=== PATIENT | male | born 1960 | race Caucasian/White ===

== ENCOUNTER 2016-10-27 20:44 | Emergency (ER) | payer OTHER, MEDICARE ==
[~2016-10-27] VITALS: Ht 172.7 cm; Wt 85.0 kg
[~2016-10-27 20:44] MED LIST: ALPR.5 PO; CLON.5 PO; GEOD80CA PO; LITH300T3 PO
[2016-10-27 20:48] VITALS: BP 157/95; PULSE 100; RESP 20; TEMP 98.7; O2SAT 95
[2016-10-27] MEDS ORDERED: SODIUM CHLORIDE 0.9% FLUSH 5 ML FLUSH IVF PRN (21:00)
[2016-10-27] MEDS ORDERED: methylPREDNISolone SOD SUCC 125 MG/2 ML VIAL IVP ONE (21:00)
--- NOTE | 2016-10-27 21:00 | PD ---
HPI Chief Complaint: Respiratory Symptoms Time Seen by Provider: 20:55 Travel History International Travel<30 days: No Contact w/Intl Traveler<30days: No History of Present Illness HPI Patient is a 56-year-old male who presents emergency via EMS for evaluation of shortness of breath. Patient states shortness breath occurs mostly at night, he states it has gotten worse recently. He states that his lungs feel like they 're closing in and he is gasping for air. Patient denies any chest pain, shortness of breath currently, nausea, vomiting, headaches, fever, chills or recent illnesses. He has a history of bipolar disorder, schizophrenia, [place], anxiety, asthma. PFSH Past Medical History Asthma: Yes Bipolar Disorder: Yes Anxiety: Yes Myocardial Infarction: Yes Schizophrenia: Yes Social History Alcohol Use: No Tobacco Use: No Substance Use: No Allergies-Medications (Allergen,Severity, Reaction): Coded Allergies: No Known Allergies (Unverified , 09/30/16) Reported Meds & Prescriptions Reported Meds & Active Scripts Active Ventolin Hfa 18 GM Inh (Albuterol Sulfate) 90 Mcg/Act Aer 2 Puff INH Q4-6H PRN Reported Geodon (Ziprasidone) 80 Mg Cap 80 Mg PO BID [place] Carbonate 300 Mg Tab 1,200 Mg PO HS Klonopin (Clonazepam) 0.5 Mg Tab 0.5 Mg PO DAILY Xanax (Alprazolam) 0.5 Mg Tab 0.5 Mg PO BID PRN Review of Systems Except as stated in HPI: all other systems reviewed are Neg Respiratory: Positive: Shortness of Breath Physical Exam Narrative GENERAL: Well-developed, well-nourished, alert male. Resting comfortably in no acute distress. SKIN: Warm and dry. HEAD: Atraumatic. Normocephalic. EYES: Pupils equal and round. No scleral icterus. No injection or drainage. ENT: No nasal bleeding or discharge. Mucous membranes pink and moist. NECK: Trachea midline. No JVD. CARDIOVASCULAR: Regular rate and rhythm. No murmur appreciated. RESPIRATORY: No accessory muscle use. Clear to auscultation. Breath sounds equal bilaterally. No nasal flaring, no retractions noted. GASTROINTESTINAL: Abdomen soft, non-tender, nondistended. Hepatic and splenic margins not palpable. MUSCULOSKELETAL: No obvious deformities. No clubbing. No cyanosis. No edema. NEUROLOGICAL: Awake and alert. No obvious cranial nerve deficits. Motor grossly within normal limits. Normal speech. PSYCHIATRIC: Anxious mood and affect; insight and judgment normal. Data Data Last Documented VS Orders Complete Blood Count With Diff (10/27/16 20:53) Comprehensive Metabolic Panel (10/27/16 20:53) B-Type Natriuretic Peptide (10/27/16 20:53) Ckmb (Isoenzyme) Profile (10/27/16 20:53) Troponin I (10/27/16 20:53) Iv Access Insert/Monitor (10/27/16 20:53) Electrocardiogram (10/27/16 20:53) Ecg Monitoring (10/27/16 20:53) Oximetry (10/27/16 20:53) Oxygen Administration (10/27/16 20:53) Chest, Pa & Lat (10/27/16 20:53) Sodium Chloride 0.9% Flush (Ns Flush) (10/27/16 21:00) Methylprednisolone So Succ Inj (Solumedr (10/27/16 21:00) Albuterol-Ipratropium Neb (Duoneb Neb) (10/27/16 21:00) Sodium Chlor 0.9% 1000 Ml Inj (Ns 1000 M (10/27/16 22:15) Potassium Chloride (Kcl) (10/27/16 22:15) Labs MDM Medical Decision Making Medical Screen Exam Complete: Yes Emergency Medical Condition: Yes Interpretation(s) Laboratory Tests Test 10/27/16 21:15 White Blood Count 15.3 TH/MM3 Red Blood Count 5.01 MIL/MM3 Hemoglobin 14.6 GM/DL Hematocrit 42.5 % Mean Corpuscular Volume 84.9 FL Mean Corpuscular Hemoglobin 29.1 PG Mean Corpuscular Hemoglobin 34.3 % Concent Red Cell Distribution Width 12.6 % Platelet Count 405 TH/MM3 Mean Platelet Volume 7.8 FL Neutrophils (%) (Auto) 75.7 % Lymphocytes (%) (Auto) 16.2 % Monocytes (%) (Auto) 5.4 % Eosinophils (%) (Auto) 2.3 % Basophils (%) (Auto) 0.4 % Neutrophils # (Auto) 11.6 TH/MM3 Lymphocytes # (Auto) 2.5 TH/MM3 Monocytes # (Auto) 0.8 TH/MM3 Eosinophils # (Auto) 0.3 TH/MM3 Basophils # (Auto) 0.1 TH/MM3 CBC Comment DIFF FINAL Differential Comment Vital Signs Date Time Temp Pulse Resp B/P Pulse Ox O2 Delivery O2 Flow Rate FiO2 10/27/16 20:59 94 Room Air 10/27/16 20:59 100 20 94 Room Air 10/27/16 20:48 98.7 100 20 157/95 95 Last Impressions Chest X-Ray 10/27/162052 Signed Impressions: Service Date/Time: Thursday, October 27, 2016 21:15 - CONCLUSION: No acute disease. Milton Wolff Jr., MD Differential Diagnosis Asthma exacerbation versus congestive heart failure versus COPD versus sleep apnea versus other Narrative Course Patient is a 56-year-old male who presented to emergency department for evaluation of shortness of breath. This feeling has been ongoing for approximately 2 months and occurs mostly when patient is lying in bed at night. Patient states he has not smoked since he was in his 20s. He has been out of his albuterol inhaler for approximately 6 weeks. Patient placed on telemetry monitoring, continuous pulse oximetry. IV access initiated, labs and imaging ordered and pending. CBC with a white count of 15.3, patient has no sign of infection, his chest x- ray is normal. Likely stress related. Patient appears anxious, continuously adding new symptoms to his complaint. Chemistry is otherwise unremarkable, potassium was slightly hemolyzed with a value of 3.7. Troponin was 0.02, BNP 39. Normal saline bolus as well as potassium supplementation ordered. Patient be discharged home with albuterol inhaler as he has been out of his inhaler for the last 6 weeks. He was encouraged to follow up with his primary doctor, for possible outpatient sleep study. He was encouraged to return to emergency department for any new or worsening symptoms. He was reassured at this time that there was no sign of pulmonary infection or acute process. Diagnosis Primary Impression: Shortness of breath Referrals: Primary Care Physician 3 days Patient Instructions: Dyspnea (ED), General Instructions Additional Instructions: Follow-up with your primary doctor Continue home medications as previously prescribed Use albuterol inhaler as needed and as directed Return to emergency department for any new or worsening symptoms Med/Other Pt SpecificInfo: Prescription(s) given Scripts Albuterol 18 GM Inh (Ventolin Hfa 18 GM Inh)90 Mcg/Act Aer2 Puff INH Q4-6H PRN ( SHORTNESS OF BREATH) #1 INHALER Ref 0 Prov:Yocasta Huff 10/27/16 Disposition: 01 DISCHARGE HOME Condition: Stable Yocasta Huff Oct 27, 2016 21:00 Mean Corpuscular Hemoglobin 34.3 % Concent Red Cell Distribution Width 12.6 % Platelet Count 405 TH/MM3 Mean Platelet Volume 7.8 FL Neutrophils (%) (Auto) 75.7 % Lymphocytes (%) (Auto) 16.2 % Monocytes (%) (Auto) 5.4 % Eosinophils (%) (Auto) 2.3 % Basophils (%) (Auto) 0.4 % Neutrophils # (Auto) 11.6 TH/MM3 Lymphocytes # (Auto) 2.5 TH/MM3 Monocytes # (Auto) 0.8 TH/MM3 Eosinophils # (Auto) 0.3 TH/MM3 Basophils # (Auto) 0.1 TH/MM3 CBC Comment DIFF FINAL Differential Comment Vital Signs Date Time Temp Pulse Resp B/P Pulse Ox O2 Delivery O2 Flow Rate FiO2 10/27/16 20:59 94 Room Air 10/27/16 20:59 100 20 94 Room Air 10/27/16 20:48 98.7 100 20 157/95 95 Last Impressions Chest X-Ray 10/27/162052 Signed Impressions: Service Date/Time: Thursday, October 27, 2016 21:15 - CONCLUSION: No acute disease. Milton Wolff Jr., MD Differential Diagnosis Asthma exacerbation versus congestive heart failure versus COPD versus sleep apnea versus other Narrative Course Patient is a 56-year-old male who presented to emergency department for evaluation of shortness of breath. This feeling has been ongoing for approximately 2 months and occurs mostly when patient is lying in bed at night. Patient states he has not smoked since he was in his 20s. He has been out of his albuterol inhaler for approximately 6 weeks. Patient placed on telemetry monitoring, continuous pulse oximetry. IV access initiated, labs and imaging ordered and pending. CBC with a white count of 15.3, patient has no sign of infection, his chest x- ray is normal. Likely stress related. Patient appears anxious, continuously adding new symptoms to his complaint. Chemistry is otherwise unremarkable, potassium was slightly hemolyzed with a value of 3.7. Troponin was 0.02, BNP 39. Normal saline bolus as well as potassium supplementation ordered. Patient be discharged home with albuterol inhaler as he has been out of his inhaler for the last 6 weeks. He was encouraged to follow up with his primary doctor, for possible outpatient sleep study. He was encouraged to return to emergency department for any new or worsening symptoms. He was reassured at this time that there was no sign of pulmonary infection or acute process. Diagnosis Primary Impression: Shortness of breath Referrals: Primary Care Physician 3 days Patient Instructions: Dyspnea (ED), General Instructions Additional Instructions: Follow-up with your primary doctor Continue home medications as previously prescribed Use albuterol inhaler as needed and as directed Return to emergency department for any new or worsening symptoms Med/Other Pt SpecificInfo: Prescription(s) given Scripts Albuterol 18 GM Inh (Ventolin Hfa 18 GM Inh)90 Mcg/Act Aer2 Puff INH Q4-6H PRN ( SHORTNESS OF BREATH) #1 INHALER Ref 0 Prov:Yocasta Huff 10/27/16 Disposition: 01 DISCHARGE HOME Condition: Stable Yocasta Huff Oct 27, 2016 21:00
[2016-10-27] MEDS: RESP: ALBUTEROL 2.5 MG/IPRATROPIUM 0.5 MG NEB (SCH) INH (21:08)
--- NOTE | 2016-10-27 21:20 | RADRPT ---
EXAM DATE/TIME: 10/27/2016 21:15 [place] COMPARISON: No previous studies available for comparison. INDICATIONS : Short of breath. MEDICAL HISTORY : Myocardial infarction. SURGICAL HISTORY : Cardiac stents place about 12 years ago. ENCOUNTER: Initial ACUITY: 2 months PAIN SCORE: 8/10 LOCATION: Bilateral chest FINDINGS: PA and lateral views of the chest demonstrate the lungs to be symmetrically aerated without evidence of mass, infiltrate or effusion. The cardiomediastinal contours are unremarkable. Osseous structure s are intact. CONCLUSION: No acute disease. Milton Wolff Jr., MD on October 27, 2016 at 21:18 Board Certified Radiologist. This report was verified electronically.
[2016-10-27 21:38] LABS: AUTOMATED NEUTROPHIL # 11.6 TH/MM3 (1.8-7.7); BASOPHIL # 0.1 TH/MM3 (0-0.2); BASOPHIL % 0.4 % (0.0-2.0); EOSINOPHIL # 0.3 TH/MM3 (0-0.4); EOSINOPHIL % 2.3 % (0.0-4.0); HEMATOCRIT 42.5 % (39.0-51.0); HEMO FLAGS DIFF FINAL; LYMPH % 16.2 % (9.0-44.0); LYMPHOCYTE # 2.5 TH/MM3 (1.0-4.8); MEAN CELL VOLUME 84.9 FL (80.0-100.0); MEAN CORPUSCULAR HEMOGLOBIN 29.1 PG (27.0-34.0); MEAN CORPUSCULAR HGB CONC 34.3 % (32.0-36.0); MONO % 5.4 % (0.0-8.0); NEUT % 75.7 % (16.0-70.0); PLATELET COUNT 405 TH/MM3 (150-450); RED BLOOD COUNT 5.01 MIL/MM3 (4.50-5.90); RED CELL DISTRIBUTION WIDTH 12.6 % (11.6-17.2); WHITE BLOOD COUNT 15.3 TH/MM3 (4.0-11.0)
[2016-10-27 22:03] LABS: ANION GAP 9 MEQ/L (5-15)
[2016-10-27 22:09] LABS: ALKALINE PHOSPHATASE 74 U/L (45-117); ALT (GPT) 14 U/L (12-78); AST (GOT) 14 U/L (15-37); BICARBONATE 27.2 MEQ/L (21.0-32.0); BLOOD UREA NITROGEN 13 MG/DL (7-18); CHLORIDE 103 MEQ/L (98-107); CREATINE KINASE 72 U/L (39-308); GLOMERULAR FILTRATION RATE 43 ML/MIN (>89); POTASSIUM 3.7 MEQ/L (3.5-5.1); SODIUM (NA) 139 MEQ/L (136-145); TOTAL BILIRUBIN ADULT 0.5 MG/DL (0.2-1.0)
[2016-10-27] MEDS ORDERED: SODIUM CHLOR 0.9% 1000 ML INJ 1,000 ML IV ONE (22:15)
[2016-10-27] MEDS ORDERED: POTASSIUM CHLORIDE 10 MEQ CONTROLLED RELEASE TAB PO ONE (22:15)
[2016-10-27] MEDS ORDERED: VENTAER INH (22:20)
--- NOTE | 2016-10-27 22:42 | PD ---
Physical Exam Narrative Patient was seen and examined with my orthodontic assistant. Data Data Last Documented VS Vital Signs Date Time Temp Pulse Resp B/P Pulse Ox O2 Delivery O2 Flow Rate FiO2 10/27/16 20:59 94 Room Air 10/27/16 20:59 100 20 10/27/16 20:48 98.7 157/95 Orders Complete Blood Count With Diff (10/27/16 20:53) Comprehensive Metabolic Panel (10/27/16 20:53) B-Type Natriuretic Peptide (10/27/16 20:53) Ckmb (Isoenzyme) Profile (10/27/16 20:53) Troponin I (10/27/16 20:53) Iv Access Insert/Monitor (10/27/16 20:53) Electrocardiogram (10/27/16 20:53) Ecg Monitoring (10/27/16 20:53) Oximetry (10/27/16 20:53) Oxygen Administration (10/27/16 20:53) Chest, Pa & Lat (10/27/16 20:53) Sodium Chloride 0.9% Flush (Ns Flush) (10/27/16 21:00) Methylprednisolone So Succ Inj (Solumedr (10/27/16 21:00) Albuterol-Ipratropium Neb (Duoneb Neb) (10/27/16 21:00) Sodium Chlor 0.9% 1000 Ml Inj (Ns 1000 M (10/27/16 22:15) Potassium Chloride (Kcl) (10/27/16 22:15) Labs Laboratory Tests Test 10/27/16 21:15 White Blood Count 15.3 TH/MM3 Red Blood Count 5.01 MIL/MM3 Hemoglobin 14.6 GM/DL Hematocrit 42.5 % Mean Corpuscular Volume 84.9 FL Mean Corpuscular Hemoglobin 29.1 PG Mean Corpuscular Hemoglobin 34.3 % Concent Red Cell Distribution Width 12.6 % Platelet Count 405 TH/MM3 Mean Platelet Volume 7.8 FL Neutrophils (%) (Auto) 75.7 % Lymphocytes (%) (Auto) 16.2 % Monocytes (%) (Auto) 5.4 % Eosinophils (%) (Auto) 2.3 % Basophils (%) (Auto) 0.4 % Neutrophils # (Auto) 11.6 TH/MM3 Lymphocytes # (Auto) 2.5 TH/MM3 Monocytes # (Auto) 0.8 TH/MM3 Eosinophils # (Auto) 0.3 TH/MM3 Basophils # (Auto) 0.1 TH/MM3 CBC Comment DIFF FINAL Differential Comment Sodium Level 139 MEQ/L Potassium Level 3.7 MEQ/L Chloride Level 103 MEQ/L Carbon Dioxide Level 27.2 MEQ/L Anion Gap 9 MEQ/L Blood Urea Nitrogen 13 MG/DL Creatinine 1.66 MG/DL Estimat Glomerular Filtration 43 ML/MIN Rate Random Glucose 95 MG/DL Calcium Level 9.9 MG/DL Total Bilirubin 0.5 MG/DL Aspartate Amino Transf 14 U/L (AST/SGOT) Alanine Aminotransferase 14 U/L (ALT/SGPT) Alkaline Phosphatase 74 U/L Total Creatine Kinase 72 U/L Troponin I 0.02 NG/ML B-Type Natriuretic Peptide 39 PG/ML Total Protein 7.7 GM/DL Albumin 3.5 GM/DL MDM Supervised Visit with LELO: Yes Diagnosis Primary Impression: Shortness of breath Referrals: Primary Care Physician 3 days Patient Instructions: General Instructions, Dyspnea (ED) Additional Instruction: Follow-up with your primary doctor Continue home medications as previously prescribed Use albuterol inhaler as needed and as directed Return to emergency department for any new or worsening symptoms Scripts Albuterol 18 GM Inh (Ventolin Hfa 18 GM Inh)90 Mcg/Act Aer2 Puff INH Q4-6H PRN ( SHORTNESS OF BREATH) #1 INHALER Ref 0 Prov:Yocasta Huff 10/27/16 Disposition: 01 DISCHARGE HOME Condition: Stable Dru Hendrickson MD Oct 27, 2016 22:42
[2016-10-27 22:48] VITALS: O2SAT 95
[2016-10-27 22:49] VITALS: BP 152/79; PULSE 110; RESP 18; TEMP 98.5; O2SAT 95
[2016-10-28] VITALS: BP 144/72; PULSE 94; RESP 16; O2SAT 96
--- NOTE | 2016-10-28 09:31 | EKG ---
Date Performed: 10/27/2016 Time Performed: 21:45:17 PTAGE: 56 years EKG: SINUS TACHYCARDIA POSSIBLE LEFT ATRIAL ENLARGEMENT MARKED RIGHT AXIS DEVIATION RIGHT BUNDLE BRANCH BLOCK INFERIOR MYOCARDIAL INFARCTION ABNORMAL ECG NO PREVIOUS TRACING DOCTOR: David Cueto Interpretating Date/Time 10/28/2016 09:30:24
== END 2016-10-28 00:19 | disposition home or self-care (01) ==
LOC: NEPA 20:44
DX: R06.02 Shortness of breath (principal); R94.31 Abnormal electrocardiogram [ECG] [EKG]; I25.2 Old myocardial infarction; Z86.59 Personal history of other mental and behavioral disorders; Z87.09 Personal history of other diseases of the respiratory system
CPT/HCPCS: 71020; 80053; 82550; 83880; 84484; 85025; 93005; 94640; 94664; 96361; 96374; 99285; J2930; J7030

== ENCOUNTER 2017-02-22 22:32 | Emergency (ER) | payer MEDICARE, OTHER ==
[~2017-02-22] VITALS: Ht 167.6 cm; Wt 70.0 kg
[~2017-02-22 22:32] MED LIST changes: +VENTAER INH
[2017-02-22 22:35] VITALS: BP 152/96; PULSE 88; RESP 16; TEMP 98.1; O2SAT 98
[2017-02-22] MEDS ORDERED: LEVO.1 PO (22:59)
[2017-02-22] MEDS ORDERED: HYDR5TAB64 PO (22:59)
--- NOTE | 2017-02-22 23:12 | PD ---
HPI Chief Complaint: Anxiety Time Seen by Provider: 22:49 Travel History International Travel<30 days: No Contact w/Intl Traveler<30days: No Traveled to known affect area: No History of Present Illness HPI The patient is a 56 year old male who presents to the [facility] emergency department with a history of reported increased difficulty sleeping over the last 6 months associated with weight loss of approximately 50 pounds. The patient reports that he has a history of pituitary surgery 4 years ago. He reports that he did not follow up with an double corner cutter initially, however when the symptoms began he saw an double corner cutter a month ago. He reports that he is newly been started on hydrocortisone and Synthroid. He reports that his symptoms of difficulty sleeping have continued. He is currently on a sleeping pill at night, however he has been on this for years. The patient also has a history of anxiety, bipolar disorder, and schizophrenia. He has been taking his lithium as prescribed. He reports that his lithium level was recently checked and found to be normal. He denies having any suicidal or homicidal ideations. The patient denies hearing voices or experiencing hallucinations. He denies wanting to see his psychiatric screener at this time for increased anxiety. He reports that he has a good working relationship with his psychiatrist and can follow-up with him. The patient denies having a primary care physician. The patient reports that he does awaken sometimes was snoring in the night. A review of systems, the patient denies any recent fevers cough, congestion, neck pain, chest pain, shortness of breath, abdominal pain, vomiting , diarrhea, urinary symptoms, or neurologic symptoms. REPLACED BY [facility] Past Medical History Narrative Medical The patient's past medical history is significant for pituitary surgery now with hypopituitarism being managed by a an double corner cutter, history of bipolar disorder, anxiety disorder, schizophrenia, coronary artery disease with prior myocardial infarction status post cardiac catheterization with stent placement 2. Asthma: Yes Bipolar Disorder: Yes Anxiety: Yes Cardiac Catheterization: Yes Cardiovascular Problems: Yes ([place], 2 STENTS) Psychiatric: Yes (BIPOLAR) Myocardial Infarction: Yes Schizophrenia: Yes Tetanus Vaccination: Unknown Past Surgical History Narrative Surgical The patient's past surgical history is significant for a cardiac catheterization with stent placement, pituitary surgery. 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) Social History Alcohol Use: No Tobacco Use: No Substance Use: No Allergies-Medications (Allergen,Severity, Reaction): Coded Allergies: No Known Allergies (Unverified , 02/22/17) Reported Meds & Prescriptions Reported Meds & Active Scripts Active Synthroid (Levothyroxine Sodium) 50 Mcg Tab 50 Mcg PO DAILY Reported Hydrocortisone 5 Mg Tab 5 Mg PO BID Take with food to decrease GI upset Synthroid (Levothyroxine Sodium) 100 Mcg Tab 100 Mcg PO DAILY Geodon (Ziprasidone) 80 Mg Cap 80 Mg PO BID [place] Carbonate 300 Mg Tab 1,200 Mg PO HS Klonopin (Clonazepam) 0.5 Mg Tab 0.5 Mg PO DAILY Review of Systems Except as stated in HPI: all other systems reviewed are Neg General / Constitutional: No: Fever Eyes: No: Visual changes HENT: No: Headaches Cardiovascular: No: Chest Pain or Discomfort Respiratory: No: Shortness of Breath Gastrointestinal: No: Abdominal Pain Genitourinary: No: Dysuria Musculoskeletal: No: Pain Skin: No Rash Neurologic: No: Weakness Psychiatric: Positive: Anxiety, Mood Disorder, No: Depression, Suicidal Ideations, Disorder of Thought, Substance Abuse, Homicidal Ideation Endocrine: No: Polydipsia Hematologic/Lymphatic: No: Easy Bruising Physical Exam Narrative General: The patient is a well-developed well-nourished male in no acute distress. Head and Neck exam: Head is normocephalic atraumatic. Eyes: EOMI, pupils are equal round and reactive to light. Nose: Midline septum with pink mucous membranes Mouth: Dentition unremarkable. Moist mucus membranes. Posterior oropharynx is not erythematous. No tonsillar hypertrophy. Uvula midline. Airway patent. Neck: No palpable lymphadenopathy. No nuchal rigidity. No thyromegaly. Cardiovascular: Regular rate and rhythm without murmurs, gallops, or rubs. Lungs: Clear to auscultation bilaterally. No wheezes, rhonchi, or rales. Abdomen: Soft, without tenderness to palpation in all 4 quadrants of the abdomen. No guarding, rebound, or rigidity. Bowel sounds are audible. No tenderness on palpation of McBurney's point. Extremities: No clubbing, cyanosis, or edema. 2+ pulses in all 4 extremities. No calf tenderness on palpation. Back: No costovertebral angle tenderness to palpation. Neurologic Exam: Grossly nonfocal. The patient is slightly tremulous on examination. Skin Exam: No rash noted. Intact skin that is warm and dry. Data Data Last Documented VS Vital Signs Date Time Temp Pulse Resp B/P Pulse Ox O2 Delivery O2 Flow Rate FiO2 02/22/17 22:35 98.1 88 16 152/96 98 Room Air Orders Electrocardiogram (02/22/17 23:05) Complete Blood Count With Diff (02/22/17 23:05) Basic Metabolic Panel (Bmp) (02/22/17 23:05) Magnesium (Mg) (02/22/17 23:05) [place] (Li) (02/22/17 23:05) Thyroid Stimulating Hormone (02/22/17 23:05) Iv Access Insert/Monitor (02/22/17:05) Ecg Monitoring (02/22/17:05) Oximetry (02/22/17:05) Sodium Chlor 0.9% 1000 Ml Inj (Ns 1000 M (02/23/17 00:00) Potassium Chloride (Kcl) (02/23/17 00:15) Labs Laboratory Tests Test 02/22/17 23:10 White Blood Count 13.0 TH/MM3 Red Blood Count 4.76 MIL/MM3 Hemoglobin 13.8 GM/DL Hematocrit 40.3 % Mean Corpuscular Volume 84.8 FL Mean Corpuscular Hemoglobin 29.1 PG Mean Corpuscular Hemoglobin 34.3 % Concent Red Cell Distribution Width 12.5 % Platelet Count 250 TH/MM3 Mean Platelet Volume 8.1 FL Neutrophils (%) (Auto) 75.1 % Lymphocytes (%) (Auto) 15.1 % Monocytes (%) (Auto) 7.3 % Eosinophils (%) (Auto) 2.0 % Basophils (%) (Auto) 0.5 % Neutrophils # (Auto) 9.8 TH/MM3 Lymphocytes # (Auto) 2.0 TH/MM3 Monocytes # (Auto) 0.9 TH/MM3 Eosinophils # (Auto) 0.3 TH/MM3 Basophils # (Auto) 0.1 TH/MM3 CBC Comment DIFF FINAL Differential Comment Sodium Level 139 MEQ/L Potassium Level 3.3 MEQ/L Chloride Level 105 MEQ/L Carbon Dioxide Level 27.1 MEQ/L Anion Gap 7 MEQ/L Blood Urea Nitrogen 14 MG/DL Creatinine 1.38 MG/DL Estimat Glomerular Filtration 53 ML/MIN Rate Random Glucose 121 MG/DL Calcium Level 9.8 MG/DL Magnesium Level 2.3 MG/DL Thyroid Stimulating Hormone 0.038 uIU/ML 3rd Gen [place] Level 1.5 MEQ/L [facility] Medical Decision Making Medical Screen Exam Complete: Yes Emergency Medical Condition: Yes Medical Record Reviewed: Yes Differential Diagnosis Hyperthyroidism, versus lithium toxicity, versus anxiety disorder, versus insomnia, versus sleep apnea Narrative Course During the course of the patients emergency department visit, the patients history, examination, and differential diagnosis were reviewed with the patient. The patient had IV access obtained and blood work sent for analysis. The patient was placed on a lumber buyer with oximetry and blood pressure monitoring. The patient was initially provided normal saline 1 L IV fluid bolus, potassium chloride 20 mEq by mouth 1 for mild hypokalemia. The patients laboratory studies were reviewed and remarkable for white count of 13, hemoglobin 13.8, platelets 250 with 75.1 neutrophils, basic metabolic profiles were remarkable for potassium of 3.3 which was supplemented orally, creatinine 1.38, glucose 121, TSH is 0.038, magnesium 2.3, lithium 1.5. I discussed with the patient that the patient's symptoms could be related partly to over supplementation with his Synthroid, therefore the patient's dose was decreased and I recommended close follow-up with his double corner cutter. I also recommended close follow-up with his psychiatrist as his insomnia and increased anxiety could be related to his psychiatric issues. The patient is resting comfortably and feels better, is alert and in no distress. The patients results and examination findings were discussed with the patient. The repeat examination is unremarkable and benign. The history, exam, diagnostic testing, and current condition do not suggest any significant pathology to warrant further testing, continued ED treatment, admission, or surgical evaluation at this point. The vital signs have been stable. The patient does not have uncontrollable pain, intractable vomiting, or other significant symptoms. The patient's condition is stable and appropriate for discharge. The patient will pursue further outpatient evaluation with a primary care physician or other designated or consulting physician as indicated in the discharge instructions. The patient expressed understanding and was agreeable with this plan. Diagnosis Primary Impression: Hyperthyroidism Additional Impressions: Anxiety disorder Qualified Code: F41.9 - Anxiety disorder, unspecified type Insomnia Qualified Code: G47.00 - Insomnia, unspecified type Referrals: Quinn Villalba MD 2 days Dress Cap Maker 1 week Psychiatrist 3 days Patient Instructions: General Instructions, Hyperthyroidism (ED) Additional Instructions: The patient is instructed to discontinue the Synthroid 100 g tablets and instead start the 50 g tablets over the next week. He is instructed to follow- up with his double corner cutter for further guidance and additional testing to make sure that he gets back within normal range for his TSH is this could be contributing to his insomnia and anxiety. Med/Other Pt SpecificInfo: Prescription(s) given, Med Stopped (Synthroid 100 g) Scripts Levothyroxine (Synthroid)50 Mcg Tab50 Mcg PO DAILY #14 TAB Ref 0 Prov:Jennifer Gambino MD 02/23/17 Disposition: 01 DISCHARGE HOME Condition: Stable Jennifer Gambino MD February 22, 2017 23:12
[2017-02-22 23:29] LABS: AUTOMATED NEUTROPHIL # 9.8 TH/MM3 (1.8-7.7); BASOPHIL # 0.1 TH/MM3 (0-0.2); BASOPHIL % 0.5 % (0.0-2.0); EOSINOPHIL # 0.3 TH/MM3 (0-0.4); HEMATOCRIT 40.3 % (39.0-51.0); HEMO FLAGS DIFF FINAL; LYMPH % 15.1 % (9.0-44.0); MEAN CELL VOLUME 84.8 FL (80.0-100.0); MEAN CORPUSCULAR HEMOGLOBIN 29.1 PG (27.0-34.0); MEAN CORPUSCULAR HGB CONC 34.3 % (32.0-36.0); MONO % 7.3 % (0.0-8.0); NEUT % 75.1 % (16.0-70.0); PLATELET COUNT 250 TH/MM3 (150-450); RED BLOOD COUNT 4.76 MIL/MM3 (4.50-5.90); RED CELL DISTRIBUTION WIDTH 12.5 % (11.6-17.2)
[2017-02-22 23:44] LABS: BICARBONATE 27.1 MEQ/L (21.0-32.0); MAGNESIUM 2.3 MG/DL (1.5-2.5); POTASSIUM 3.3 MEQ/L (3.5-5.1)
[2017-02-23] MEDS ORDERED: SODIUM CHLOR 0.9% 1000 ML INJ 1,000 ML IV ONE
[2017-02-23] MEDS ORDERED: POTASSIUM CHLORIDE 20 MEQ CONTROLLED RELEASE TAB PO ONE (00:15)
[2017-02-23] MEDS ORDERED: LEVO.05 PO (00:27)
== END 2017-02-23 01:12 | disposition home or self-care (01) ==
LOC: NEPC 22:32
DX: E05.90 Thyrotoxicosis, unspecified without thyrotoxic crisis or storm (principal); F41.9 Anxiety disorder, unspecified; G47.00 Insomnia, unspecified; R63.4 Abnormal weight loss; I25.2 Old myocardial infarction; Z98.890 Other specified postprocedural states; Z86.59 Personal history of other mental and behavioral disorders; Z86.79 Personal history of other diseases of the circulatory system; Z87.09 Personal history of other diseases of the respiratory system
CPT/HCPCS: 80048; 80178; 83735; 84443; 85025; 99284; J7030

== ENCOUNTER 2017-03-08 17:05 | Emergency (ER) | payer OTHER ==
[~2017-03-08 17:05] MED LIST changes: -ALPR.5 PO; +HYDR5TAB64 PO; +LEVO.05 PO; +LEVO.1 PO; -VENTAER INH
[2017-03-08 17:07] VITALS: BP 147/96; PULSE 101; RESP 15; TEMP 97.6; O2SAT 95
== END 2017-03-08 17:27 | disposition left against medical advice (07) ==
LOC: NED 17:05
DX: R68.89 Other general symptoms and signs (principal)
CPT/HCPCS: 99281

== ENCOUNTER 2017-03-14 19:36 | Emergency (ER) | payer OTHER ==
[~2017-03-14] VITALS: Ht 167.6 cm; Wt 70.0 kg
[2017-03-14 19:39] VITALS: BP 134/83; PULSE 92; RESP 16; TEMP 99; O2SAT 96
[2017-03-14] MEDS ORDERED: CLON0.5T PO (20:07)
[2017-03-14] MEDS ORDERED: LITH150C PO ×2 (20:07→20:11)
--- NOTE | 2017-03-14 20:08 | PD ---
HPI Chief Complaint: Medical Clearance Time Seen by Provider: 20:01 Travel History International Travel<30 days: No Contact w/Intl Traveler<30days: No Traveled to known affect area: No History of Present Illness HPI 56-year-old white male presents to emergency department comely by family member with complaints of sleep apnea. He states that he has difficulty sleeping at night. He is unable to get a restful sleep. He wakes up periodically through the night. He does snore. He also feels that he stops breathing for some time. The patient has never been diagnosed with sleep apnea. He has not seen a primary care doctor in some time. He also states that he is under the care of a psychiatrist for anxiety and depression. He does carry a history of insomnia. The patient states that he has lost approximately 60 pounds in the past 2 months with his thyroid disease. Patient denies any fever or chills. No ear pain or sore throat. No shortness of breath or wheezing. 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) Social History Alcohol Use: No Tobacco Use: No Substance Use: No Allergies-Medications (Allergen,Severity, Reaction): Coded Allergies: No Known Allergies (Unverified , 03/14/17) Reported Meds & Prescriptions Reported Meds & Active Scripts Active Synthroid (Levothyroxine Sodium) 50 Mcg Tab 50 Mcg PO DAILY Reported Hydrocortisone 5 Mg Tab 5 Mg PO BID Take with food to decrease GI upset Synthroid (Levothyroxine Sodium) 100 Mcg Tab 100 Mcg PO DAILY Geodon (Ziprasidone) 80 Mg Cap 80 Mg PO BID [place] Carbonate 300 Mg Tab 1,200 Mg PO HS Klonopin (Clonazepam) 0.5 Mg Tab 0.5 Mg PO DAILY Review of Systems Except as stated in HPI: all other systems reviewed are Neg General / Constitutional: No: Fever Eyes: No: Blurred Vision, Photophobia HENT: No: Sore Throat, Neck Pain Cardiovascular: No: Chest Pain or Discomfort, Palpitations Respiratory: No: Cough, Shortness of Breath Gastrointestinal: No: Nausea, Vomiting Physical Exam Narrative GENERAL: Well-developed, well-nourished in no acute distress. Nontoxic appearing. Patient is resting comfortable in examination room without discomfort. HEAD: Normocephalic, atraumatic. EYES: Pupils equal round and reactive. Extraocular motions intact. No scleral icterus. No injection or drainage. ENT: TMs clear without erythema. The external auditory canals clear. Nose: clear . Posterior pharynx is pink and moist. Mild tonsillar edema but no exudate. Uvula midline. Airway patent. NECK: Trachea midline.Supple, nontender, moves head freely. No central bony tenderness or spasm. CARDIOVASCULAR: Regular rate and rhythm without murmurs, gallops, or rubs. RESPIRATORY: Clear to auscultation. Breath sounds equal bilaterally. No wheezes , rales, or rhonchi. GASTROINTESTINAL: Abdomen soft, non-tender, nondistended. No hepato-splenomegaly , or palpable masses. No guarding. EXTREMITIES: No clubbing, cyanosis, or edema. No joint tenderness, effusion, or edema noted. BACK: Nontender without deformity or crepitance. No flank tenderness. Data Data Last Documented VS Vital Signs Date Time Temp Pulse Resp B/P Pulse Ox O2 Delivery O2 Flow Rate FiO2 03/14/17 19:52 20 03/14/17 19:39 99.0 92 134/83 96 Room Air MDM Medical Decision Making Medical Screen Exam Complete: Yes Emergency Medical Condition: Yes Medical Record Reviewed: Yes Differential Diagnosis Differential diagnoses: Depression, insomnia, sleep apnea, medication reaction Narrative Course I explained to the patient that we do not evaluate people for sleep apnea in the emergency department. He will need to follow-up with a primary care doctor as well as a slab worker for a sleep study. The patient's encouraged to get a primary care doctor. If he has a PPO insurance seek a workup a slab worker and: Directly. Patient verbally states understanding. This is sleep disruption Diagnosis Primary Impression: Disrupted sleep-wake cycle Patient Instructions: General Instructions Additional Instructions: Rest. Follow-up with a primary care doctor in 1 week. Follow-up with a slab worker and have a sleep study done. Discuss with your psychiatrist your problems with sleep. Return to the ER for emergencies. Med/Other Pt SpecificInfo: No Change to Meds Disposition: 01 DISCHARGE HOME Condition: Stable Malachi Gray Mar 14, 2017 20:07
[2017-03-14] MEDS ORDERED: TRAZ300T2 PO (20:11)
== END 2017-03-14 20:43 | disposition home or self-care (01) ==
LOC: NEPD 19:36
DX: G47.00 Insomnia, unspecified (principal); F41.8 Other specified anxiety disorders
CPT/HCPCS: 99281

== ENCOUNTER 2017-04-07 22:02 | Observation (INO) | payer OTHER ==
[~2017-04-07] VITALS: Ht 167.6 cm; Wt 68.0 kg
[~2017-04-07 22:02] MED LIST changes: -CLON.5 PO; +CLON0.5T PO; -LEVO.05 PO; -LEVO.1 PO; +LITH150C PO; -LITH300T3 PO; +TRAZ300T2 PO
[2017-04-07 22:26] VITALS: BP 112/68; PULSE 58; RESP 16; TEMP 98.7; O2SAT 95
[2017-04-07] MEDS ORDERED: SODIUM CHLORID 0.9% 500 ML INJ 500 ML IV ONE (22:30)
[2017-04-07] MEDS ORDERED: IBUPROFEN 600 MG TAB PO ONE (22:30)
[2017-04-07 22:49] LABS: AUTOMATED NEUTROPHIL # 8.8 TH/MM3 (1.8-7.7); BASOPHIL % 0.4 % (0.0-2.0); EOSINOPHIL # 0.5 TH/MM3 (0-0.4); EOSINOPHIL % 3.7 % (0.0-4.0); HEMATOCRIT 39.9 % (39.0-51.0); HEMO FLAGS DIFF FINAL; LYMPHOCYTE # 2.2 TH/MM3 (1.0-4.8); MEAN CELL VOLUME 83.7 FL (80.0-100.0); MEAN CORPUSCULAR HEMOGLOBIN 29.4 PG (27.0-34.0); MEAN CORPUSCULAR HGB CONC 35.1 % (32.0-36.0); MONO % 5.9 % (0.0-8.0); PLATELET COUNT 272 TH/MM3 (150-450); RED BLOOD COUNT 4.77 MIL/MM3 (4.50-5.90); RED CELL DISTRIBUTION WIDTH 12.6 % (11.6-17.2); WHITE BLOOD COUNT 12.2 TH/MM3 (4.0-11.0)
[2017-04-07 23:15] LABS: BICARBONATE 29.6 MEQ/L (21.0-32.0); POTASSIUM 3.8 MEQ/L (3.5-5.1)
--- NOTE | 2017-04-07 23:18 | PD ---
HPI Chief Complaint: General Weakness Time Seen by Provider: 22:25 Travel History International Travel<30 days: No Contact w/Intl Traveler<30days: No Traveled to known affect area: No History of Present Illness HPI Patient is a 56-year-old male presents with weakness generalized for the past 2 weeks gradually worsening. Patient states that when he goes to bed at night sometimes he rolls over and gets pain in his rear end, this is ultimately what brought him into the emergency department today. Patient states that he has attempted to overdose on lithium in the past but is adamantly denies doing that tonight. States she does take lithium on a regular basis. 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) Other Surgery: Yes (pitutary tumor removal, ) Social History Alcohol Use: No Tobacco Use: No Substance Use: No Allergies-Medications (Allergen,Severity, Reaction): Coded Allergies: No Known Allergies (Unverified , 04/07/17) Reported Meds & Prescriptions Reported Meds & Active Scripts Active Reported Trazodone (Trazodone HCl) 300 Mg Tab 300 Mg PO HS [place] Carbonate 150 Mg Cap 1,200 Mg PO HS Clonazepam 0.5 Mg Tab 0.5 Mg PO HS Hydrocortisone 5 Mg Tab 5 Mg PO BID Take with food to decrease GI upset Geodon (Ziprasidone) 80 Mg Cap 80 Mg PO BID Physical Exam Narrative GENERAL: Well-developed well-nourished no apparent distress. SKIN: Focused skin assessment warm/dry. HEAD: Atraumatic. Normocephalic. EYES: Pupils equal and round. No scleral icterus. No injection or drainage. ENT: No nasal bleeding or discharge. Mucous membranes pink and moist. NECK: Trachea midline. No JVD. CARDIOVASCULAR: Regular rate and rhythm. No murmur appreciated. RESPIRATORY: No accessory muscle use. Clear to auscultation. Breath sounds equal bilaterally. GASTROINTESTINAL: Abdomen soft, non-tender, nondistended. Hepatic and splenic margins not palpable. No rash no wound seen on his gluteus, rectal exam is unremarkable. MUSCULOSKELETAL: No obvious deformities. No clubbing. No cyanosis. No edema. NEUROLOGICAL: Awake and alert. No obvious cranial nerve deficits. Motor grossly within normal limits. Normal speech. PSYCHIATRIC: Appropriate mood and affect; insight and judgment normal. Data Data Last Documented VS Vital Signs Date Time Temp Pulse Resp B/P Pulse Ox O2 Delivery O2 Flow Rate FiO2 04/08/17 00:30 88 16 131/61 100 Room Air 04/07/17 22:26 98.7 Orders Complete Blood Count With Diff (04/07/17 22:25) Basic Metabolic Panel (Bmp) (04/07/17 22:25) Sodium Chlorid 0.9% 500 Ml Inj (Ns 500 M (04/07/17 22:30) Ibuprofen (Motrin) (04/07/17 22:30) [place] (Li) (04/07/17 23:22) Call Poison Control (04/08/17 00:24) Sodium Chlor 0.9% 1000 Ml Inj (Ns 1000 M (04/08/17 01:00) Admit Order (Ed Use Only) (04/08/17 ) Place In Observation (04/08/17 ) Vital Signs (Adult) Q4H (04/08/17 00:58) Activity Oob With Assistance (04/08/17 00:58) Ballet Soloist / Telemetry .CONTINUOUS (04/08/17 00:58) Diet Heart Healthy (04/08/17 Breakfast) Sodium Chlor 0.9% 1000 Ml Inj (Ns 1000 M (04/08/17 00:58) Sodium Chloride 0.9% Flush (Ns Flush) (04/08/17 01:00) Sodium Chloride 0.9% Flush (Ns Flush) (04/08/17 09:00) Comprehensive Metabolic Panel (04/09/17 06:00) Complete Blood Count With Diff (04/09/17 06:00) Case Management Consult (04/08/17 00:58) Naloxone Inj (Narcan Inj) (04/08/17 01:00) Labs Laboratory Tests Test 04/07/17 04/07/17 22:30 23:25 White Blood Count 12.2 TH/MM3 Red Blood Count 4.77 MIL/MM3 Hemoglobin 14.0 GM/DL Hematocrit 39.9 % Mean Corpuscular Volume 83.7 FL Mean Corpuscular Hemoglobin 29.4 PG Mean Corpuscular Hemoglobin 35.1 % Concent Red Cell Distribution Width 12.6 % Platelet Count 272 TH/MM3 Mean Platelet Volume 8.7 FL Neutrophils (%) (Auto) 72.0 % Lymphocytes (%) (Auto) 18.0 % Monocytes (%) (Auto) 5.9 % Eosinophils (%) (Auto) 3.7 % Basophils (%) (Auto) 0.4 % Neutrophils # (Auto) 8.8 TH/MM3 Lymphocytes # (Auto) 2.2 TH/MM3 Monocytes # (Auto) 0.7 TH/MM3 Eosinophils # (Auto) 0.5 TH/MM3 Basophils # (Auto) 0.0 TH/MM3 CBC Comment DIFF FINAL Differential Comment Sodium Level 136 MEQ/L Potassium Level 3.8 MEQ/L Chloride Level 102 MEQ/L Carbon Dioxide Level 29.6 MEQ/L Anion Gap 4 MEQ/L Blood Urea Nitrogen 17 MG/DL Creatinine 1.59 MG/DL Estimat Glomerular Filtration 45 ML/MIN Rate Random Glucose 95 MG/DL Calcium Level 9.9 MG/DL [place] Level 2.2 MEQ/L [facility] Medical Decision Making Medical Screen Exam Complete: Yes Emergency Medical Condition: Yes Interpretation(s) EKG shows sinus rhythm right bundle branch block, left axis deviation. Abnormal R wave progression. Poor data quality in V4. No obvious ST segment changes. Comparison of 10/27/2016 shows no change. This an abnormal EKG. Differential Diagnosis Fatigue, anemia, weakness, elevated lithium level. Narrative Course Patient roomed in the emergency department, mild fatigue, reveals to me that he has been on lithium, lithium level is elevated at 2.2, given his symptomology and his chronic congestion this is a possibility for the causation of symptoms. I recommended observation status for him and he is agreeable. Patient was discussed with Dr. Olmos, who agrees with observation status. He is a chronic kidney disease creatinine runs 1.7-1.5 and is 1.5 today. No indication for emergent dialysis at this time. Patient was discussed with Dr. Brooks who agrees for observation status. Diagnosis Primary Impression: Elevated lithium level Admitting Information Admitting Physician Requests: Observation Condition: Stable Francis Desai MD Apr 07, 2017 23:18
[2017-04-08 00:30] VITALS: BP 131/61; PULSE 88; RESP 16; O2SAT 100
[2017-04-08] MEDS ORDERED: SODIUM CHLOR 0.9% 1000 ML INJ 1,000 ML IV SCH (00:58)
[2017-04-08] MEDS ORDERED: SODIUM CHLORIDE 0.9% FLUSH 10 ML FLUSH IV FLUSH PRN (01:00)
[2017-04-08] MEDS ORDERED: NALOXONE HCL 0.4 MG/ML AMP IV PRN (01:00)
[2017-04-08] MEDS ORDERED: SODIUM CHLOR 0.9% 1000 ML INJ 1,000 ML IV ONE (01:00)
[2017-04-08 03:18] VITALS: PULSE 80
[2017-04-08 03:34] VITALS: BP 103/54; PULSE 52; RESP 18; TEMP 97.8; O2SAT 97
[2017-04-08 07:32] VITALS: BP 139/65; PULSE 61; RESP 16; TEMP 98.6; O2SAT 99
[2017-04-08 08:00] VITALS: PULSE 57
[2017-04-08] MEDS ORDERED: SODIUM CHLORIDE 0.9% FLUSH 10 ML FLUSH IV FLUSH SCH (09:00)
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
[2017-04-08] MEDS ORDERED: ZIPRASIDONE HCL 80 MG CAP PO SCH (11:15)
[2017-04-08 11:45] VITALS: BP 121/63; PULSE 63; RESP 15; TEMP 98; O2SAT 100
[2017-04-08 12:14] LABS: AUTOMATED NEUTROPHIL # 12.1 TH/MM3 (1.8-7.7); BASOPHIL % 0.3 % (0.0-2.0); EOSINOPHIL # 0.3 TH/MM3 (0-0.4); EOSINOPHIL % 1.8 % (0.0-4.0); HEMATOCRIT 41.1 % (39.0-51.0); HEMO FLAGS DIFF FINAL; LYMPH % 9.6 % (9.0-44.0); LYMPHOCYTE # 1.4 TH/MM3 (1.0-4.8); MEAN CELL VOLUME 86.1 FL (80.0-100.0); MEAN CORPUSCULAR HEMOGLOBIN 28.6 PG (27.0-34.0); MEAN CORPUSCULAR HGB CONC 33.2 % (32.0-36.0); MONO % 4.2 % (0.0-8.0); NEUT % 84.1 % (16.0-70.0); PLATELET COUNT 243 TH/MM3 (150-450); RED BLOOD COUNT 4.78 MIL/MM3 (4.50-5.90); RED CELL DISTRIBUTION WIDTH 12.7 % (11.6-17.2); WHITE BLOOD COUNT 14.4 TH/MM3 (4.0-11.0)
[2017-04-08 12:33] LABS: BICARBONATE 33.2 MEQ/L (21.0-32.0); POTASSIUM 3.9 MEQ/L (3.5-5.1)
--- NOTE | 2017-04-08 13:52 | HHI.HP ---
HPI Service [facility] Primary Care Physician No Primary Care Physician Admission Diagnosis [place] toxicity. Diagnoses: Chief Complaint: Weakness Travel History International Travel<30 Days: No Contact w/Intl Traveler <30 Da: No Traveled to Known Affected Are: No History of Present Illness Written by Osito Menezes, acting as scribe for Dr. Nixon on 04/08/17 at 13:44. 56-year-old male with a past medical history of bipolar disorder, paranoid schizophrenia, CAD, pituitary tumor removal who presented for generalized weakness and shakiness. The patient states he has a history of executive function disorder, and doesn't quite remember why he came to the hospital. He does state that he came in for weakness and shakiness. He states that he has shakiness than baseline, and states his current shakes are mild compared to what they usually are. He denies any recent lithium dose adjustments and states she's been on lithium for 30 years. He saw his psychiatrist last month and has another appointment to see him next month. He states he's been on hydrocortisone for the last 5 months or so, and is supposed to follow-up for a repeat brain MRI seen. The patient has been tolerating diet with no nausea or vomiting. He is asking go home today. 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 History of emergent dialysis in the past after intentional lithium overdose Past Surgical History Cardiac catheterization with stent placement 2 Pituitary tumor removal Reported Medications Trazodone (Trazodone HCl) 300 Mg Tab 300 Mg PO HS [place] Carbonate 150 Mg Cap 1,200 Mg PO HS Clonazepam 0.5 Mg Tab 0.5 Mg PO HS Hydrocortisone 5 Mg Tab 5 Mg PO BID Take with food to decrease GI upset Geodon (Ziprasidone) 80 Mg Cap 80 Mg PO BID Allergies: Coded Allergies: No Known Allergies (Unverified , 04/07/17) Active Ordered Medications Current Medications Medications (Trade) Dose Ordered Sig/Cris Route Start Time Stop Time Status Last Admin (NS Flush) 2 ml UNSCH PRN IV FLUSH 04/08/17 01:00 (NS Flush) 2 ml BID IV FLUSH 04/08/17 09:00 (Narcan Inj) 0.4 mg UNSCH PRN IV 04/08/17 01:00 (Pneumovax-23 Inj) 25 mcg ONCE ONCE IM 04/09/17 09:00 04/09/17 09:01 (KlonoPIN) 0.5 mg HS PO 04/08/17 21:00 (Desyrel) 300 mg HS PO 04/08/17 21:00 (Geodon) 80 mg BID PO 04/08/17 11:15 04/08/17 12:39 (Cortef) 5 mg BID PO 04/08/17 21:00 UNV Family History Father had arthritis and back problems Mother is 83 and healthy Social History Lives at home with his mother and niece. Denies any alcohol, tobacco, or drug use Physical Exam Vital Signs Vital Signs Date Time Temp Pulse Resp B/P Pulse Ox O2 Delivery O2 Flow Rate FiO2 04/08/17 11:45 98.0 63 15 121/63 100 04/08/17 08:00 57 04/08/17 07:32 98.6 61 16 139/65 99 04/08/17 03:34 97.8 52 18 103/54 97 04/08/17 03:18 80 04/08/17 00:30 88 16 131/61 100 Room Air 04/07/17 22:26 98.7 58 16 112/68 95 Physical Exam GENERAL: Well-developed well-nourished. In no acute distress. SKIN: Warm and dry. No lesions noted. HEENT: Normocephalic. Pupils equal and round. Mucous membranes pink and moist. CARDIOVASCULAR: Regular rate and rhythm. No murmur appreciated. RESPIRATORY: No accessory muscle use. Clear to auscultation. Breath sounds equal bilaterally. GASTROINTESTINAL: Abdomen soft, non-tender, nondistended. Bowel sounds x4. MUSCULOSKELETAL: No obvious deformities. No clubbing or cyanosis. No edema. NEUROLOGICAL: Awake and alert. No focal neurological deficits. Moves upper and lower extremities spontaneously. Normal speech. EPS tremors. PSYCHIATRIC: Appropriate mood and affect; insight and judgment seem to be sufficient. Laboratory Laboratory Tests Test 04/07/17 04/07/17 04/08/17 22:30 23:25 11:51 White Blood Count 12.2 14.4 Red Blood Count 4.77 4.78 Hemoglobin 14.0 13.6 Hematocrit 39.9 41.1 Mean Corpuscular Volume 83.7 86.1 Mean Corpuscular Hemoglobin 29.4 28.6 Mean Corpuscular Hemoglobin 35.1 33.2 Concent Red Cell Distribution Width 12.6 12.7 Platelet Count 272 243 Mean Platelet Volume 8.7 8.3 Neutrophils (%) (Auto) 72.0 84.1 Lymphocytes (%) (Auto) 18.0 9.6 Monocytes (%) (Auto) 5.9 4.2 Eosinophils (%) (Auto) 3.7 1.8 Basophils (%) (Auto) 0.4 0.3 Neutrophils # (Auto) 8.8 12.1 Lymphocytes # (Auto) 2.2 1.4 Monocytes # (Auto) 0.7 0.6 Eosinophils # (Auto) 0.5 0.3 Basophils # (Auto) 0.0 0.0 CBC Comment DIFF FINAL DIFF FINAL Differential Comment Sodium Level 136 144 Potassium Level 3.8 3.9 Chlor[place] Level 102 109 Carbon Dioxide Level 29.6 33.2 Anion Gap 4 2 Blood Urea Nitrogen 17 13 Creatinine 1.59 1.42 Estimat Glomerular Filtration 45 51 Rate Random Glucose 95 104 Calcium Level 9.9 9.5 [place] Level 2.2 1.4 Result Diagram: 04/08/17 1151 04/08/17 1151 Assessment and Plan Assessment and Plan 56-year-old male with a past medical history of bipolar disorder, paranoid schizophrenia, CAD, pituitary tumor removal who presented for generalized weakness and shakiness and admitted for elevated lithium level Generalized weakness and shakiness: Appears to be secondary to extrapyramidal symptoms from chronic psychotropic medications. Patient states that he has these symptoms at baseline, and currently they're mild compared to normal. He was offered PT evaluation and declines. Elevated lithium level: At the level was 2.2 at admission, decreased to 1.4 overnight. Resume lithium tomorrow and follow-up with psychiatry. CKD with mild dehydration: Creatinine 1.59 at admission, previously 1.38 on 02/22. Creatinine improved to 1.4 to overnight with IVF. Improved. Leukocytosis: Mild, likely secondary to chronic hydrocortisone use. Afebrile. Bipolar disorder/paranoid schizophrenia: Chronic, stable. Continue outpatient psychiatry follow-up. Disposition: The patient presented for weakness and shakiness, which he reports are his baseline. The patient declines any further evaluation for weakness and shakiness. [place] level has improved. Discharge home today. This note was transcribed by [email or web address] []. I, Dr. Amber Nixon personally performed the history, physical exam, and medical decision making; and confirmed the accuracy of the information in the transcribed note. Authenticated by Dr. Amber Nixon on 04/08/17 at 1405. Discussed Condition With Patient, Osito Olmedo Apr 08, 2017 13:52 Amber Nixon MD Apr 08, 2017 16:10
--- NOTE | 2017-04-08 19:07 | EKG ---
Date Performed: 04/07/2017 Time Performed: 22:13:33 PTAGE: 56 years EKG: SINUS BRADYCARDIA MARKED RIGHT AXIS DEVIATION RIGHT BUNDLE BRANCH BLOCK INFERIOR MYOCARDIAL INFARCTION Compared to previous tracing, the sinus tachycardia has resolved. When allowing for the a bsence of V4 on the present tracing, there's been no other overt serial change ABNORMAL ECG WARNING: DATA QUALITY MAY AFFECT INTERPRETATION NO PREVIOUS TRACING DOCTOR: Lilia Bello Interpretating Date/Time 04/08/2017 19:05:07
[2017-04-08] MEDS ORDERED: clonazePAM 0.5 MG TAB PO SCH (21:00)
[2017-04-08] MEDS ORDERED: HYDROCORTISONE 10 MG TAB PO SCH (21:00)
[2017-04-08] MEDS ORDERED: traZODone HCL 100 MG TAB PO SCH (21:00)
[2017-04-09] MEDS ORDERED: PNEUMOCOCCAL POLYVALENT INJ 25 MCG/0.5 ML SYR IM ONE (09:00)
== END 2017-04-08 14:58 | disposition home or self-care (01) ==
LOC: NEPE 22:02 → NEDA 04-08 01:00 → NEPHCDU 04-08 02:05
PROVIDERS: ADMIT Family Medicine; ATTEND Family Medicine
DX: T43.591A Poisoning by other antipsychotics and neuroleptics, accidental (unintentional), initial encounter (principal); R53.1 Weakness; R25.1 Tremor, unspecified; E86.0 Dehydration; N18.9 Chronic kidney disease, unspecified; Z79.899 Other long term (current) drug therapy; I25.10 Atherosclerotic heart disease of native coronary artery without angina pectoris; F31.9 Bipolar disorder, unspecified; F20.0 Paranoid schizophrenia; F41.9 Anxiety disorder, unspecified; E07.9 Disorder of thyroid, unspecified; D72.829 Elevated white blood cell count, unspecified; J45.909 Unspecified asthma, uncomplicated; I25.2 Old myocardial infarction; R94.31 Abnormal electrocardiogram [ECG] [EKG]
CPT/HCPCS: 80048; 80178; 85025; 93005; 97163; 99285; G0378; G8987; G8988; J7030; J7040

== ENCOUNTER 2017-04-14 00:03 | Observation (INO) | payer OTHER ==
[~2017-04-14] VITALS: Ht 167.6 cm; Wt 68.0 kg
[2017-04-14] VITALS (7 sets, daily range): BP systolic 80–123; BP diastolic 50–75; PULSE 57–64; RESP 16–19; TEMP 98.5–98.8; O2SAT 96–100
[2017-04-14 00:41] LABS: AUTOMATED NEUTROPHIL # 8.7 TH/MM3 (1.8-7.7); BASOPHIL % 0.4 % (0.0-2.0); EOSINOPHIL # 0.3 TH/MM3 (0-0.4); EOSINOPHIL % 2.9 % (0.0-4.0); HEMATOCRIT 39.1 % (39.0-51.0); HEMO FLAGS DIFF FINAL; LYMPH % 15.8 % (9.0-44.0); LYMPHOCYTE # 1.8 TH/MM3 (1.0-4.8); MEAN CELL VOLUME 84.9 FL (80.0-100.0); MEAN CORPUSCULAR HGB CONC 34.2 % (32.0-36.0); MONO % 6.3 % (0.0-8.0); NEUT % 74.6 % (16.0-70.0); PLATELET COUNT 246 TH/MM3 (150-450); RED CELL DISTRIBUTION WIDTH 12.5 % (11.6-17.2); WHITE BLOOD COUNT 11.7 TH/MM3 (4.0-11.0)
--- NOTE | 2017-04-14 00:46 | PD ---
HPI Chief Complaint: Respiratory Symptoms Time Seen by Provider: 00:13 Travel History International Travel<30 days: No Contact w/Intl Traveler<30days: No Traveled to known affect area: No History of Present Illness HPI So 56-year-old man who presents to the emergency department complaining of generalized weakness. Patient reports that he was feeling weak and then he fell out of bed. EMS reports they picked him up in his yard eating [employer]. His a history of bipolar disorder and schizophrenia. He is been seen apparently for this multiple times in the past. He was recently admitted with an elevated lithium level. Patient states is been ongoing for quite some time, year or so, but is not getting any better. Patient reports he does not regular doctor because "I don't need one". Denies any recent illness or injury. No other complaints. History Past Medical History Narrative Medical Bipolar disorder/schizophrenia Tetanus Vaccination: Unknown Influenza Vaccination: Yes Social History Alcohol Use: No Tobacco Use: No Allergies-Medications (Allergen,Severity, Reaction): Coded Allergies: No Known Allergies (Unverified , 04/14/17) Reported Meds & Prescriptions Reported Meds & Active Scripts Active Reported Trazodone (Trazodone HCl) 300 Mg Tab 300 Mg PO HS [place] Carbonate 150 Mg Cap 1,200 Mg PO HS Clonazepam 0.5 Mg Tab 0.5 Mg PO HS Hydrocortisone 5 Mg Tab 5 Mg PO BID Take with food to decrease GI upset Geodon (Ziprasidone) 80 Mg Cap 80 Mg PO BID Review of Systems Except as stated in HPI: all other systems reviewed are Neg Physical Exam Narrative GENERAL: 56-year-old man, little bit lethargic, no acute distress. SKIN: Focused skin assessment warm/dry. HEAD: Atraumatic. Normocephalic. CARDIOVASCULAR: Regular rate and rhythm. No murmur appreciated. RESPIRATORY: No accessory muscle use. Clear to auscultation. Breath sounds equal bilaterally. GASTROINTESTINAL: Abdomen soft, non-tender, nondistended. Hepatic and splenic margins not palpable. MUSCULOSKELETAL: No obvious deformities. No clubbing. No cyanosis. No edema. NEUROLOGICAL: Awake and alert. No obvious cranial nerve deficits. Motor grossly within normal limits. Normal speech. PSYCHIATRIC: Appropriate mood and affect; insight and judgment normal. Data Data Last Documented VS Vital Signs Date Time Temp Pulse Resp B/P Pulse Ox O2 Delivery O2 Flow Rate FiO2 04/14/17 00:15 98.8 58 18 100/62 98 Room Air Orders Complete Blood Count With Diff (04/14/17 00:16) Basic Metabolic Panel (Bmp) (04/14/17 00:16) [place] (Li) (04/14/17 00:16) Alcohol (Ethanol) (04/14/17 00:16) Salicylates (Aspirin) (04/14/17 00:59) Tylenol (Acetaminophen) (04/14/17 00:59) Electrocardiogram (04/14/17 ) Admit Order (Ed Use Only) (04/14/17 ) Labs Laboratory Tests Test 04/14/17 04/14/17 00:21 00:25 Sodium Level 137 MEQ/L Potassium Level 3.9 MEQ/L Chloride Level 104 MEQ/L Carbon Dioxide Level 26.2 MEQ/L Anion Gap 7 MEQ/L Blood Urea Nitrogen 16 MG/DL Creatinine 1.67 MG/DL Estimat Glomerular Filtration 42 ML/MIN Rate Random Glucose 90 MG/DL Calcium Level 10.3 MG/DL [place] Level 2.3 MEQ/L Ethyl Alcohol Level LESS THAN 3 MG/DL White Blood Count 11.7 TH/MM3 Red Blood Count 4.60 MIL/MM3 Hemoglobin 13.3 GM/DL Hematocrit 39.1 % Mean Corpuscular Volume 84.9 FL Mean Corpuscular Hemoglobin 29.0 PG Mean Corpuscular Hemoglobin 34.2 % Concent Red Cell Distribution Width 12.5 % Platelet Count 246 TH/MM3 Mean Platelet Volume 8.6 FL Neutrophils (%) (Auto) 74.6 % Lymphocytes (%) (Auto) 15.8 % Monocytes (%) (Auto) 6.3 % Eosinophils (%) (Auto) 2.9 % Basophils (%) (Auto) 0.4 % Neutrophils # (Auto) 8.7 TH/MM3 Lymphocytes # (Auto) 1.8 TH/MM3 Monocytes # (Auto) 0.7 TH/MM3 Eosinophils # (Auto) 0.3 TH/MM3 Basophils # (Auto) 0.0 TH/MM3 CBC Comment DIFF FINAL Differential Comment MDM Medical Decision Making Medical Screen Exam Complete: Yes Emergency Medical Condition: Yes Interpretation(s) LABS: CBC remarkable for mild leukocytosis. BMP mildly elevated creatinine. Within 2.3 Alcohol negative Differential Diagnosis Psychiatric disease, chronic lithium toxicity, malingering, infection, other Narrative Course Medical decision making Is a 56 year-old woman presents to the emergency department complaining of generalized weakness. He looks well. He was admitted with a chronic elevated lithium level and concern for chronic toxicity. The weakness Seems to be an ongoing problem for him. In any case, we'll recheck his chemistries on his lithium level. We'll recommend that he establish with him follow-up with her regular doctor. FINAL: 56 year-old woman with generalized weakness, concern regarding his elevated lithium periods difficult to completely correlated to the patient's lithium level. Nonetheless, given the patient's complaining of weakness and lethargy, is elevated lithium level, we discussed with poison control, they recommended trending lithium levels every 2 hours, and checking BMP every 4, and continuing saline hydration. Diagnosis Primary Impression: Elevated lithium level Additional Impression: Generalized weakness Admitting Information Admitting Physician Requests: Pascual Wasserman MD Apr 14, 2017 00:45
[2017-04-14 01:16] LABS: ANION GAP 7 MEQ/L (5-15); BICARBONATE 26.2 MEQ/L (21.0-32.0); BLOOD UREA NITROGEN 16 MG/DL (7-18); CHLORIDE 104 MEQ/L (98-107); GLOMERULAR FILTRATION RATE 42 ML/MIN (>89); POTASSIUM 3.9 MEQ/L (3.5-5.1); SODIUM (NA) 137 MEQ/L (136-145)
[2017-04-14] MEDS ORDERED: SODIUM CHLOR 0.9% 1000 ML INJ 1,000 ML IV ONE (01:45)
[2017-04-14] MEDS ORDERED: SODIUM CHLORIDE 0.9% FLUSH 10 ML FLUSH IV FLUSH PRN (02:00)
[2017-04-14] MEDS ORDERED: NALOXONE HCL 0.4 MG/ML AMP IV PRN (02:00)
--- NOTE | 2017-04-14 08:49 | PD.PSY.CON ---
Provisional Diagnosis Admission Date Apr 14, 2017 at 01:28 History of Present Illness Service Psychiatry Consult Requested By Primary Care Physician Unknown HPI The patient is a 56-year-old man, domiciled with his mother, unemployed, retired, , , with psychiatric history of schizoaffective disorder, previous psychiatric hospitalizations, suicide attempts, acting outpatient care with Dr. Randle, he is on Geodon 80 mg twice a day, lithium 1200 mg Trazodone 300 mf hs, medical history of hypertension, hypothyroidism, who presents to the emergency department complaining of generalized weakness. Patient reports that he was feeling weak and then he fell out of bed. EMS reports they picked him up in his yard eating [employer]. He was recently admitted with an elevated lithium level. Patient states is been ongoing for quite some time, year or so, but is not getting any better. On psychiatric evaluation today patient is found in his bed, he is calm and cooperative, he says that he is tired and he feels very fatigued. He says that he doesn't want to live anymore, and he has been seriously thinking about overdosing with lithium or hanging himself. Patient says that he feels hopeless pessimistic, with low self esteem, low energy, poor concentration, he says that he has lost about 20 pounds in the last 2-3 months. Patient says that he cannot understand why he is so tired all the time. Patient reports compliance with medications on and off. He says that he is fully compliant with his lithium "but sometimes taking more than usual". Patient reports suicidal ideation, no immediate plan, but he has been thinking in overdosing with lithium at his condition doesn't improve. Patient is not clear about the dose of his psychotropics. This is the second time in a short period of time that the patient has been admitted due to elevated lithium levels. Collateral information could not be obtained at this moment. Patient is partially oriented in time, oriented in place, seems to be confused and disorganized at time. He denies the use of drugs and alcohol. Review of Systems Constitutional: COMPLAINS OF: Fatigue, Weight loss, Change in appetite, DENIES : Diaphoretic episodes, Fever, Weight gain, Chills, Dizziness, Night Sweats Endocrine: DENIES: Heat/cold intolerance, Polydipsia, Polyuria, Polyphagia Eyes: DENIES: Blurred vision, Diplopia, Eye inflammation, Eye pain, Vision loss , Photosensitivity, Double Vision Ears, nose, mouth, throat: DENIES: Tinnitus, Hearing loss, Vertigo, Nasal discharge, Oral lesions, Throat pain, Hoarseness, Ear Pain, Running Nose, Epistaxis, Sinus Pain, Toothache, Odynophagia Respiratory: DENIES: Apneas, Cough, Snoring, Wheezing, Hemoptysis, Sputum production, Shortness of breath Cardiovascular: DENIES: Chest pain, Palpitations, Syncope, Dyspnea on Exertion , PND, Lower Extremity Edema, Orthopnea, Claudication Gastrointestinal: DENIES: Abdominal pain, Black stools, Bloody stools, Constipation, Diarrhea, Nausea, Vomiting, Difficulty Swallowing, Anorexia Genitourinary: DENIES: Sexual dysfunction, Urinary frequency, Urinary incontinence, Urgency, Hematuria, Dysuria, Nocturia, Penile Discharge, Testicular Pain, Testicular Swelling Musculoskeletal: DENIES: Joint pain, Muscle aches, Stiffness, Joint Swelling, Back pain, Neck pain Integumentary: DENIES: Abnormal pigmentation, Nail changes, Pruritus, Rash Hematologic/lymphatic: DENIES: Bruising, Lymphadenopathy Immunologic/allergic: DENIES: Eczema, Urticaria Neurologic: DENIES: Abnormal gait, Headache, Localized weakness, Paresthesias, Seizures, Speech Problems, Tremor, Poor Balance Psychiatric: COMPLAINS OF: Confusion, Depression, Suicidal Ideation Past Family Social History Coded Allergies: No Known Allergies (Unverified , 04/14/17) Reported Medications Trazodone 300 Mg [id number] Mg PO HS #30 TAB Ref 0 03/14/17 [place] Carbonate 150 Mg Cap1,200 Mg PO HS Ref 0 03/14/17 Clonazepam 0.5 Mg Tab0.5 Mg PO HS #60 TAB Ref 0 03/14/17 Hydrocortisone 5 Mg Tab5 Mg PO BID #60 TAB Ref 0 Take with food to decrease GI upset 02/22/17 Ziprasidone (Geodon)80 Mg Cap80 Mg PO BID #60 CAP Ref 0 09/30/16 Current Medications Medications (Trade) Dose Ordered Sig/Cris Route Start Time Stop Time Status Last Admin (NS Flush) 2 ml UNSCH PRN IV FLUSH 04/14/17 02:00 (NS Flush) 2 ml BID IV FLUSH 04/14/17 09:00 (Narcan Inj) 0.4 mg UNSCH PRN IV 04/14/17 02:00 Family History Patient reports schizophrenia in his mother and grandmother Social History Patient was born and raised in [facility], he lives in [place] his mother , his divorce, and has 2 kids, retired, he is a , his highest level of education is 3th grade. Patient's Strengths (min. 2) Verbal communication Physical Exam A physical examination patient seems to be hypoactive, but no tremors, no EPS, present Vital Signs Vital Signs Date Time Temp Pulse Resp B/P Pulse Ox O2 Delivery O2 Flow Rate FiO2 04/14/17 07:08 58 16 108/61 100 Room Air 04/14/17 00:15 98.8 Lab Results Labs Laboratory Tests Test 04/14/17 04/14/17 00:21 00:25 Sodium Level 137 MEQ/L Potassium Level 3.9 MEQ/L Chloride Level 104 MEQ/L Carbon Dioxide Level 26.2 MEQ/L Anion Gap 7 MEQ/L Blood Urea Nitrogen 16 MG/DL Creatinine 1.67 MG/DL Estimat Glomerular Filtration 42 ML/MIN Rate Random Glucose 90 MG/DL Calcium Level 10.3 MG/DL [place] Level 2.3 MEQ/L Ethyl Alcohol Level LESS THAN 3 MG/DL White Blood Count 11.7 TH/MM3 Red Blood Count 4.60 MIL/MM3 Hemoglobin 13.3 GM/DL Hematocrit 39.1 % Mean Corpuscular Volume 84.9 FL Mean Corpuscular Hemoglobin 29.0 PG Mean Corpuscular Hemoglobin 34.2 % Concent Red Cell Distribution Width 12.5 % Platelet Count 246 TH/MM3 Mean Platelet Volume 8.6 FL Neutrophils (%) (Auto) 74.6 % Lymphocytes (%) (Auto) 15.8 % Monocytes (%) (Auto) 6.3 % Eosinophils (%) (Auto) 2.9 % Basophils (%) (Auto) 0.4 % Neutrophils # (Auto) 8.7 TH/MM3 Lymphocytes # (Auto) 1.8 TH/MM3 Monocytes # (Auto) 0.7 TH/MM3 Eosinophils # (Auto) 0.3 TH/MM3 Basophils # (Auto) 0.0 TH/MM3 CBC Comment DIFF FINAL Differential Comment Mental Status Examination Appearance man, age appearing, disheveled, he is calm, cooperative, but hypoactive Speech: Hesitant, Slow Orientation: Person, Place Memory: Impaired (describe) Thought Process: Goal Directed, Linear, Loose Association Thought Content: Unremarkable Hallucination Type: None Attention and Concentration: Abnormal Suicidal Ideation: No Previous Suicide Attempts: Yes Homicidal Ideation: No Affect: Sad Affect if Inappropriate: Blunt Mood: Sad Motor Activity: Normal gait Assessment & Plan Problem List: (1) Schizoaffective disorder Assessment & Plan: The patient is a 56-year-old man with psychiatric history of schizoaffective disorder, previous psychiatric hospitalizations, suicidal attempts, active outpatient care with Dr. Randle, he is on Geodon 80 mg twice a day, lithium 1200 mg Trazodone 300 mf hs, medical history of hypertension, hypothyroidism, who presents to the emergency department complaining of generalized weakness. Patient reports that he was feeling weak and then he fell out of bed. EMS reports they picked him up in his yard eating [employer]. He was recently admitted with an elevated lithium level. Consulted to psychiatry for psychotropic management recommendations. On psychiatric evaluation patient reports depression and suicidal ideation with with plan of overdosing. Patient also seemed to be poorly compliant with psychotropic and seems to be using them in an erratic manner. He also seems to be cognitively impaired. At this moment is unclear if the current presentation is secondary to underlying medical condition, cognitive impairment secondary to lithium intoxication. Patient has history of hypothyroidism, which could be exacerbated by chronic lithium use. Will order TSH, T3, T4. Hold lithium. Will restart Geodon 80 mg twice a day and trazodone 300 hs. I will Dyer act due to suicidal ideation an elevator risk of danger to himself. Collateral information from Dr. Randle and patient's mother is crucial to complete psychiatric assessment. Patient is a good candidate for admission in the med psych unit. ICD Code: F25.9 Assessment & Plan Estimated LOS: Braden Chauhan MD Apr 14, 2017 08:49
[2017-04-14] MEDS ORDERED: ZIPRASIDONE HCL 80 MG CAP PO SCH (09:00)
[2017-04-14] MEDS ORDERED: SODIUM CHLORIDE 0.9% FLUSH 10 ML FLUSH IV FLUSH SCH (09:00)
--- NOTE | 2017-04-14 10:07 | RADRPT ---
EXAM DATE/TIME: 04/14/2017 09:42 [facility] COMPARISON: No previous studies available for comparison. INDICATIONS : Possible pneumonia. MEDICAL HISTORY : Myocardial infarction. SURGICAL HISTORY : Cardiac stents place about 12 years ago. ENCOUNTER: Initial ACUITY: 2 days PAIN SCORE: 0/10 LOCATION: Bilateral chest FINDINGS: A single view of the chest demonstrates the lungs to be symmetrically aerated without evidence of mas s, infiltrate or effusion. The cardiomediastinal contours are unremarkable. Osseous structures are intact. CONCLUSION: Normal examination. Milton Wolff Jr., MD on April 14, 2017 at 10:05 Board Certified Radiologist. This report was verified electronically.
--- NOTE | 2017-04-14 10:49 | HHI.DCPOC ---
Discharge Care Plan Diagnosis: (1) Schizoaffective disorder (2) Elevated lithium level (3) Generalized weakness (4) Anxiety disorder (5) CKD (chronic kidney disease) (6) Bipolar disorder, now depressed Goals to Promote Your Health * To prevent worsening of your condition and complications * To maintain your health at the optimal level Directions to Meet Your Goals Take your medications as prescribed Follow your dietary instruction Follow activity as directed Keep your appointments as scheduled Take your immunizations and boosters as scheduled If your symptoms worsen call your PCP, if no PCP go to Urgent Care Center or Emergency Room Smoking is Dangerous to Your Health. Avoid second hand smoke Call the 24-hour hour crisis hotline for domestic abuse at Nabil Florez DO Apr 14, 2017 10:49
--- NOTE | 2017-04-14 10:56 | HHI.HP ---
[facility] Service [facility] Primary Care Physician Unknown Admission Diagnosis weakness, elevated lithium Diagnoses: Chief Complaint: Weakness Travel History International Travel<30 Days: No Contact w/Intl Traveler <30 Da: No Traveled to Known Affected Are: No History of Present Illness The patient is a 56-year-old male with past medical history of bipolar disorder and schizophrenia who is presenting to the hospital with generalized weakness. He was found to have an elevated lithium level. He was recently admitted to the hospital for an elevated lithium level. The patient says that he takes the same amount of lithium as he's been taking for many years. He denies taking any extra doses of the medication. He denies any intention to harm himself. He says he is always tired. 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 He says he always is shaky. He says he has not followed up with a neurologist on that. She says sometimes his shakiness is so bad he can't eat because he can't hold the utensils. The patient denies any illicit substance use. He was evaluated by psychiatry in the emergency department who placed the pt under Dyer Act and recommended a med psych admission. The patient was quite angry about being placed under a Dyer act. 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 Hypothyroidism History of emergent dialysis in the past after intentional lithium overdose Allergies: Coded Allergies: No Known Allergies (Unverified , 04/14/17) Active Ordered Medications Current Medications Medications (Trade) Dose Ordered Sig/Cris Route Start Time Stop Time Status Last Admin (NS Flush) 2 ml UNSCH PRN IV FLUSH 04/14/17 02:00 (NS Flush) 2 ml BID IV FLUSH 04/14/17 09:00 04/14/17 10:21 (Narcan Inj) 0.4 mg UNSCH PRN IV 04/14/17 02:00 (KlonoPIN) 0.5 mg HS PO 04/14/17 21:00 (Desyrel) 300 mg HS PO 04/14/17 21:00 (Geodon) 80 mg BID PO 04/14/17 09:00 04/14/17 10:18 Family History Schizophrenia Social History 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 He denies smoking, drinking or drug use. Physical Exam Vital Signs Vital Signs Date Time Temp Pulse Resp B/P Pulse Ox O2 Delivery O2 Flow Rate FiO2 04/14/17 07:08 58 16 108/61 100 Room Air 04/14/17 06:22 57 18 99/57 97 Room Air 04/14/17 03:35 64 18 104/65 98 Room Air 04/14/17 02:36 64 18 111/66 98 Room Air 04/14/17 01:34 57 18 80/50 97 Room Air 04/14/17 00:15 98.8 58 18 100/62 98 Room Air Physical Exam GENERAL: Tremulous, agitated. SKIN: Focused skin assessment warm/dry. HEAD: Atraumatic. Normocephalic. CARDIOVASCULAR: Regular rate and rhythm. No murmur appreciated. RESPIRATORY: No accessory muscle use. Clear to auscultation. Breath sounds equal bilaterally. GASTROINTESTINAL: Abdomen soft, non-tender, nondistended. Hepatic and splenic margins not palpable. MUSCULOSKELETAL: No obvious deformities. No clubbing. No cyanosis. No edema. NEUROLOGICAL: Awake and alert. No obvious cranial nerve deficits. Motor 5/5 in upper extremities, 4/5 in lower extremities. Normal speech. Upper extremity tremors noted. PSYCHIATRIC: Anxious, agitated. Laboratory Laboratory Tests Test 04/14/17 04/14/17 04/14/17 04/14/17 00:21 00:25 01:00 03:15 Sodium Level 137 Potassium Level 3.9 Chloride Level 104 Carbon Dioxide Level 26.2 Anion Gap 7 Blood Urea Nitrogen 16 Creatinine 1.67 Estimat Glomerular Filtration 42 Rate Random Glucose 90 Calcium Level 10.3 [place] Level 2.3 1.9 Ethyl Alcohol Level LESS THAN 3 White Blood Count 11.7 Red Blood Count 4.60 Hemoglobin 13.3 Hematocrit 39.1 Mean Corpuscular Volume 84.9 Mean Corpuscular Hemoglobin 29.0 Mean Corpuscular Hemoglobin 34.2 Concent Red Cell Distribution Width 12.5 Platelet Count 246 Mean Platelet Volume 8.6 Neutrophils (%) (Auto) 74.6 Lymphocytes (%) (Auto) 15.8 Monocytes (%) (Auto) 6.3 Eosinophils (%) (Auto) 2.9 Basophils (%) (Auto) 0.4 Neutrophils # (Auto) 8.7 Lymphocytes # (Auto) 1.8 Monocytes # (Auto) 0.7 Eosinophils # (Auto) 0.3 Basophils # (Auto) 0.0 CBC Comment DIFF FINAL Differential Comment Salicylates Level LESS THAN 1.7 Acetaminophen Level LESS THAN 2.0 Test 04/14/17 04/14/17 04:29 06:24 [place] Level 1.8 1.8 Result Diagram: 04/14/17 0025 04/14/17 0021 Imaging Last Impressions Chest X-Ray 04/14/17 0000 Signed Impressions: Service Date/Time: Friday, April 14, 2017 09:42 - CONCLUSION: Normal examination. Milton Wolff Jr., MD Assessment and Plan Assessment and Plan [place] toxicity Not sure if intentional, but the pt has a history of intentional overdose in the past. Dyer Act placed by psych. Poison control was contacted by ED, who recommended following lithium level and BMP as well as hydration. - discharge to psych-med unit per psychiatry. - monitor BMP and lithium levels regularly. - neuro checks. - IVFs. Adrenal insufficiency S/t pituitary tumor removal. - continue hydrocortisone. Lethargy/ Generalized weakness The pt has hypothyroidism. Also with adrenal insufficiency as above. - check TSH, free T4. - continue steroids. - check B12 level. Leukocytosis Likely a stress reaction. CXR unremarkable. Afebrile. - UA pending. - monitor. Chronic renal failure Creatinine at baseline. [place] toxicity as above. - IVFs. - follow BMP and lithium levels. - avoid nephrotoxic agents. Tremors The pt states he always has had tremors. He does not follow with a neurologist. - neurology referral upon discharge. CAD S/p two stents. No cardiac complaints at this time. - outpt follow up. PPx: Ambulation Discussed Condition With Pt, nurse Nabil Florez DO Apr 14, 2017 10:56
--- NOTE | 2017-04-14 10:57 | EKG ---
Date Performed: 04/14/2017 Time Performed: 01:12:26 PTAGE: 56 years EKG: SINUS BRADYCARDIA RIGHT BUNDLE BRANCH BLOCK INFERIOR MYOCARDIAL INFARCTION ABNORMAL ECG PREVIOUS TRACING : 04/07/2017 22.13 Compared to prior tracing no significant change DOCTOR: Lamont Pugh Interpretating Date/Time 04/14/2017 10:55:26
[2017-04-14] MEDS ORDERED: SODIUM CHLOR 0.9% 1000 ML INJ 1,000 ML IV SCH (11:15)
[2017-04-14 13:28] LABS: BICARBONATE 23.6 MEQ/L (21.0-32.0)
[2017-04-14 16:11] LABS: FREE T4 0.93 NG/DL (0.76-1.46)
[2017-04-14] MEDS ORDERED: clonazePAM 0.5 MG TAB PO SCH (21:00)
[2017-04-14] MEDS ORDERED: traZODone HCL 100 MG TAB PO SCH (21:00)
== END 2017-04-14 17:02 ==
LOC: NEPC 00:03 → NEDA 01:28 → NEDH 06:38
PROVIDERS: ADMIT Hospitalist; ATTEND Hospitalist
DX: R53.1 Weakness (principal); R53.83 Other fatigue; R25.1 Tremor, unspecified; D72.829 Elevated white blood cell count, unspecified; T43.505A Adverse effect of unspecified antipsychotics and neuroleptics, initial encounter; E27.40 Unspecified adrenocortical insufficiency; F20.0 Paranoid schizophrenia; N18.9 Chronic kidney disease, unspecified; F41.9 Anxiety disorder, unspecified; F31.9 Bipolar disorder, unspecified; I25.10 Atherosclerotic heart disease of native coronary artery without angina pectoris; Z98.61 Coronary angioplasty status; E03.9 Hypothyroidism, unspecified; R94.31 Abnormal electrocardiogram [ECG] [EKG]; F32.9 Major depressive disorder, single episode, unspecified; Z79.899 Other long term (current) drug therapy
CPT/HCPCS: 71010; 80048; 80178; 80307; 84439; 84443; 85025; 93005; 99285; G0378; J7030

== ENCOUNTER 2017-04-14 17:12 | Inpatient (IN) | payer OTHER ==
[2017-04-14 18:42] VITALS: BP 131/60; PULSE 60; RESP 18; TEMP 98.2
[2017-04-14 21:36] VITALS: PULSE 101; RESP 17; TEMP 97.5
[2017-04-15 06:34] VITALS: BP 137/69; PULSE 61; RESP 15; TEMP 97.6; O2SAT 99
[2017-04-15 06:52] VITALS: BP 137/69; PULSE 61; RESP 15; TEMP 96.7; O2SAT 99
[2017-04-15] MEDS ORDERED: INFLUENZA VIRUS VACCINE (QUADRIVALENT) 0.5 ML SYR IM ONE (09:00)
[2017-04-15] MEDS ORDERED: PNEUMOCOCCAL POLYVALENT INJ 25 MCG/0.5 ML SYR IM ONE (09:00)
[2017-04-15] MEDS: ZIPRASIDONE HCL 80 MG CAP PO SCH ×2 (10:13→20:22)
[2017-04-15] MEDS ORDERED: PILL SPLITTER OTHER PRN (10:45)
[2017-04-15] MEDS: HYDROCORTISONE 10 MG TAB PO SCH ×2 (10:45→20:22)
--- NOTE | 2017-04-15 13:04 | HHI.HP ---
Provisional Diagnosis Admission Date Apr 14, 2017 at 17:12 [place] I. Schizoaffective disorder, bipolar type Certification of Person's Competence To Provide Express and Informed Consent I have personally examined Sagar Maddox , a person being served at [facility] on, Apr 15, 2017 12:56. Express and informed consent means consent voluntarily given in writing, by a competent person, after sufficient explanation and disclosure of the subject matter involved to enable the person to make a knowing and willful decision without any element of force, fraud, deceit, duress, or other form of constraint or coercion. This person is 18 years of age or older, is not now known to be incompetent to consent to treatment with a guardian advocate, and does not have a health care surrogate or proxy currently making medical treatment decisions. I have found this person to be one of the following: [X] Competent to provide express and informed consent, as defined above, for voluntary admission to this facility and is competent to provide express and informed consent for treatment. He/she has the consistent capacity to make well reasoned, willful, and knowing decisions concerning his or her medical or mental health treatment. The person fully and consistently understands the purpose of the admission for examination/placement and is fully capable of personally exercising all rights assured under [place] Incompetent to provide express and informed consent to voluntary admission, and this is incompetent to provide express and informed consent to treatment. The person must be transferred to involuntary status and a petition for a guardian advocate filed with the Circuit Court. [] Refusing to provide express and informed consent to voluntary admission but is competent to provide express and informed consent for treatment. The person must be discharged or transferred to involuntary status. Form shall be completed within 24 hours of a person's arrival at the receiving facility and filed in the clinical record of each person: 1. Admitted on a voluntary basis 2. Permitted to provide express and informed consent to his/her own treatment 3. Allowed to transfer from involuntary to voluntary status 4. Prior to permitting a person to consent to his or her own treatment after having been previously found incompetent to consent to treatment. History of Present Illness Capacity: Has Capacity HPI 04/14/2017 The patient is a 56-year-old man, domiciled with his mother , unemployed, retired, , , with psychiatric history of schizoaffective disorder, previous psychiatric hospitalizations, suicide attempts, acting outpatient care with Dr. Randle, he is on Geodon 80 mg twice a day, lithium 1200 mg Trazodone 300 mf hs, medical history of hypertension, hypothyroidism, who presents to the emergency department complaining of generalized weakness. Patient reports that he was feeling weak and then he fell out of bed. EMS reports they picked him up in his yard eating [employer]. He was recently admitted with an elevated lithium level. Patient states is been ongoing for quite some time, year or so, but is not getting any better. On psychiatric evaluation today patient is found in his bed, he is calm and cooperative, he says that he is tired and he feels very fatigued. He says that he doesn't want to live anymore, and he has been seriously thinking about overdosing with lithium or hanging himself. Patient says that he feels hopeless pessimistic, with low self esteem, low energy, poor concentration, he says that he has lost about 20 pounds in the last 2-3 months. Patient says that he cannot understand why he is so tired all the time. Patient reports compliance with medications on and off. He says that he is fully compliant with his lithium "but sometimes taking more than usual". Patient reports suicidal ideation, no immediate plan, but he has been thinking in overdosing with lithium at his condition doesn't improve. Patient is not clear about the dose of his psychotropics. This is the second time in a short period of time that the patient has been admitted due to elevated lithium levels. Collateral information could not be obtained at this moment. Patient is partially oriented in time, oriented in place, seems to be confused and disorganized at time. He denies the use of drugs and alcohol. 04/15/2017 Today a psychiatric evaluation patient is on his bed, he is upset, very irritable and oppositional. Patient says that he is upset because his mother doesn't want him back to his house "because she is confabulating with with my 18 years old niece to steal my car". Patient says that he doesn't want to go to a [facility] "I want to go back home". He reports depressive symptoms, sadness, anxiety, suicidal thoughts, but not intention. Patient is able to contract for safety in the unit. Patient is disoriented to place 3. As per nursing staff, last night patient did not sleep, I spent the whole night walking in the unit, talking and disrupting other patients. On this evaluation patient is very tremulous in both hands.. Review of Systems Constitutional: DENIES: Diaphoretic episodes, Fatigue, Fever, Weight gain, Weight loss, Chills, Dizziness, Change in appetite, Night Sweats Endocrine: DENIES: Heat/cold intolerance, Polydipsia, Polyuria, Polyphagia Eyes: DENIES: Blurred vision, Diplopia, Eye inflammation, Eye pain, Vision loss , Photosensitivity, Double Vision Respiratory: DENIES: Apneas, Cough, Snoring, Wheezing, Hemoptysis, Sputum production, Shortness of breath Cardiovascular: DENIES: Chest pain, Palpitations, Syncope, Dyspnea on Exertion , PND, Lower Extremity Edema, Orthopnea, Claudication Musculoskeletal: DENIES: Joint pain, Muscle aches, Stiffness, Joint Swelling, Back pain, Neck pain Integumentary: DENIES: Abnormal pigmentation, Nail changes, Pruritus, Rash Hematologic/lymphatic: DENIES: Bruising, Lymphadenopathy Immunologic/allergic: DENIES: Eczema, Urticaria Neurologic: COMPLAINS OF: Tremor, Poor Balance, DENIES: Abnormal gait, Headache, Localized weakness, Paresthesias, Seizures, Speech Problems Psychiatric: COMPLAINS OF: Depression, Suicidal Ideation, DENIES: Anxiety, Confusion, Mood changes, Hallucinations, Agitation, Homicidal Ideation, Delusions Past Psych History Violence risk - self (6 mos) Elevated risk Substance Abuse History Drugs/Alcohol past 12 months He denies the use of alcohol and drugs Past Family Social History Coded Allergies: No Known Allergies (Unverified , 04/14/17) Reported Medications Trazodone 300 Mg [id number] Mg PO HS #30 TAB Ref 0 03/14/17 Clonazepam 0.5 Mg Tab0.5 Mg PO HS #60 TAB Ref 0 03/14/17 Hydrocortisone 5 Mg Tab5 Mg PO BID #60 TAB Ref 0 Take with food to decrease GI upset 02/22/17 Ziprasidone (Geodon)80 Mg Cap80 Mg PO BID #60 CAP Ref 0 09/30/16 Discontinued Reported Medications [place] Carbonate 150 Mg Cap1,200 Mg PO HS Ref 0 03/14/17 Current Medications Medications (Trade) Dose Ordered Sig/Cris Route Start Time Stop Time Status Last Admin (onoPIN) 0.5 mg HS PO 04/15/17 21:00 (Desyrel) 300 mg HS PO 04/15/17 21:00 (Geodon) 80 mg BID PO 04/15/17 09:45 04/15/17 10:13 (Catapres) 0.1 mg Q6H PRN PO 04/15/17 10:45 (Cortef) 5 mg BID PO 04/15/17 10:45 (Pill Splitter) 1 ea UNSCH PRN OTHER 04/15/17 10:45 Social History Patient was born and raised in [facility], he lives in [place] his mother , his divorce, and has 2 kids, retired, he is a , his highest level of education is 3th grade. Physical Exam Vital Signs Vital Signs Date Time Temp Pulse Resp B/P Pulse Ox O2 Delivery O2 Flow Rate FiO2 04/15/17 06:52 96.7 61 15 137/69 99 I/O 04/14/17 04/14/17 04/15/17 08:00 16:00 00:00 Intake Total 480 ml Balance 480 ml Mental Status Examination Appearance man, [facility], fair hygiene, poorly cooperative, irritable Speech: Rapid Orientation: x3 Memory: Unremarkable Thought Process: Goal Directed, Linear Thought Content: Unremarkable Hallucination Type: None Attention and Concentration: Good Suicidal Ideation: Yes Previous Suicide Attempts: Yes Homicidal Ideation: No Previous Homicide Attempts: No Judgment: Poor Affect: Irritable Mood: Angry Motor Activity: Abnormal gait-specify Assessment & Plan Problem List: (1) Schizoaffective disorder Assessment & Plan: The patient is a 56-year-old man with psychiatric history of schizoaffective disorder, previous psychiatric hospitalizations, suicidal attempts, active outpatient care with Dr. Randle, he is on Geodon 80 mg twice a day, lithium 1200 mg Trazodone 300 mf hs, medical history of hypertension, hypothyroidism, who presents to the emergency department complaining of generalized weakness. Patient reports that he was feeling weak and then he fell out of bed. EMS reports they picked him up in his yard eating [employer]. He was recently admitted with an elevated lithium level. Consulted to psychiatry for psychotropic management recommendations. On psychiatric evaluation patient reports depression and suicidal ideation with with plan of overdosing. Patient also seemed to be poorly compliant with psychotropic and seems to be using them in an erratic manner. He also seems to be cognitively impaired. At this moment is unclear if the current presentation is secondary to underlying medical condition, cognitive impairment secondary to lithium intoxication. Patient has history of hypothyroidism, which could be exacerbated by chronic lithium use. Will order TSH, T3, T4. Today lithium levels are 1.5. Will restart Geodon 80 mg twice a day and trazodone 300 hs, lithium at a lower dose, 200 mg twice a day. order worker intervention for psychosocial assessment, collateral information, individual and group therapy. ICD Code: F25.9 Assessment & Plan Estimated LOS: days Braden Shah MD Apr 15, 2017 13:04
[2017-04-15] MEDS ORDERED: CALCIUM CARBONATE 500 MG CHEWABLE TAB CHEW PRN (16:00)
[2017-04-15] MEDS ORDERED: DOCUSATE SODIUM 100 MG CAP PO PRN (16:00)
[2017-04-15] MEDS ORDERED: ACETAMINOPHEN 325 MG TAB PO PRN (16:00)
--- NOTE | 2017-04-15 16:22 | PD.CONS ---
HPI Service [facility] Hospitalists Consult Requested By Dr. Shah Reason for Consult Evaluate and manage lithium toxicity Primary Care Physician Unknown Diagnoses: History of Present Illness This is a 56-year-old male who presented to [facility] complaining of generalized weakness and was found to have lithium toxicity and was medically managed with IV hydration. He admitted to suicidal ideation and taking extra doses of lithium. Has been placed under Dyer act and was transferred to med psych floor. Consultation has been requested by his attending to evaluate and manage lithium toxicity. Repeat lithium level was 0.8 and has advised RN to discontinue IV fluids. According to his nurse, patient remains suicidal stating he will hang himself and overdose on meds. States he is demoralized because he doesn't have a home. Patient confirms he has adrenal insufficiency status post pituitary tumors surgery on maintenance hydrocortisone, hypothyroidism, coronary artery disease status post stents 10 years ago not on medications. He also has chronic tremors and has been referred to a neurologist, chronic kidney disease stage III and hypertension Review of Systems Except as stated in HPI: all other systems reviewed are Neg Past Family Social History Allergies: Coded Allergies: No Known Allergies (Unverified , 04/14/17) Past Medical History As previously mentioned Past Surgical History As mentioned Reported Medications Trazodone (Trazodone HCl) 300 Mg Tab 300 Mg PO HS [place] Carbonate 150 Mg Cap 1,200 Mg PO HS Clonazepam 0.5 Mg Tab 0.5 Mg PO HS Geodon (Ziprasidone) 80 Mg Cap 80 Mg PO BID Family History No heart disease Social History Does not smoke or drink Physical Exam Vital Signs Vital Signs Date Time Temp Pulse Resp B/P Pulse Ox O2 Delivery O2 Flow Rate FiO2 04/15/17 06:52 96.7 61 15 137/69 99 04/15/17 06:34 97.6 61 15 137/69 99 04/14/17 21:36 97.5 101 17 04/14/17 18:42 98.2 60 18 131/60 Physical Exam GENERAL: This is a well-nourished, well-developed patient, in no apparent distress. SKIN: No rashes, ecchymoses or lesions. Cool and dry. HEAD: Atraumatic. Normocephalic. No temporal or scalp tenderness. EYES: Pupils equal round and reactive. Extraocular motions intact. No scleral icterus. No injection or drainage. ENT: Nose without bleeding, purulent drainage or septal hematoma. Throat without erythema, tonsillar hypertrophy or exudate. Uvula midline. Airway patent. NECK: Trachea midline. No JVD or lymphadenopathy. Supple, nontender, no meningeal signs. CARDIOVASCULAR: Regular rate and rhythm without murmurs, gallops, or rubs. Prominent S2 RESPIRATORY: Clear to auscultation. Breath sounds equal bilaterally. No wheezes , rales, or rhonchi. GASTROINTESTINAL: Abdomen soft, non-tender, nondistended. No guarding. MUSCULOSKELETAL: Extremities without clubbing, cyanosis, or edema. No joint tenderness, effusion, or edema noted. No calf tenderness. Negative Homans sign bilaterally. NEUROLOGICAL: Awake and alert. Cranial nerves II through XII intact. Motor and sensory grossly within normal limits. Five out of 5 muscle strength in all muscle groups. Normal speech. Positive tremors Laboratory Laboratory Tests Test 04/15/17 13:00 [place] Level 0.8 Assessment and Plan Assessment and Plan This is a 56-year-old male with history of schizoaffective disorder. Presented to [facility] complaining of generalized weakness and was found to have lithium toxicity and was medically managed with IV hydration. He admitted to suicidal ideation and taking extra doses of lithium. Has been placed under Dyer act and was transferred to [facility] psych floor. Consultation has been requested by his attending to evaluate and manage lithium toxicity. Repeat lithium level was 0.8 and has advised RN to discontinue IV fluids. According to his nurse, patient remains suicidal stating he will hang himself and overdose on meds. States he is demoralized because he doesn't have a home. Adrenal insufficiency status post pituitary tumor surgery on maintenance hydrocortisone. Stable Hypothyroidism. TSH is within normal limits on no meds Coronary artery disease status post stents 10 years ago not on medications. Denies chest pain. Start aspirin Chronic tremors and has been referred to a neurologist Chronic kidney disease stage III. Avoid nephrotoxins Hypertension. Monitor with as needed clonidine Discussed Condition With Patient and nursing staff Jarvis Cagle MD Apr 15, 2017 16:22
[2017-04-15] MEDS: ASPIRIN EC 81 MG TABEC PO SCH (17:19)
[2017-04-15 17:56] VITALS: BP 129/85; PULSE 75; RESP 14; TEMP 98.7; O2SAT 98
[2017-04-15] MEDS: clonazePAM 0.5 MG TAB PO SCH (20:22)
[2017-04-15] MEDS: traZODone HCL 100 MG TAB PO SCH (20:23)
[2017-04-16 06:15] VITALS: BP 140/70; PULSE 71; RESP 16; TEMP 98.5; O2SAT 98
[2017-04-16] MEDS: ASPIRIN EC 81 MG TABEC PO SCH (09:48)
[2017-04-16] MEDS: ZIPRASIDONE HCL 80 MG CAP PO SCH ×2 (09:48→20:26)
[2017-04-16] MEDS: LITHIUM CARBONATE 300 MG TAB PO SCH ×2 (09:48→20:26)
[2017-04-16] MEDS: HYDROCORTISONE 10 MG TAB PO SCH ×2 (09:48→20:26)
--- NOTE | 2017-04-16 10:07 | HHI.PR ---
Subjective Remarks Follow-up lithium toxicity. Today he is feeling alright denies weakness discussed with RN Objective Vitals Vital Signs Date Time Temp Pulse Resp B/P Pulse Ox O2 Delivery O2 Flow Rate FiO2 04/16/17 06:15 98.5 71 16 140/70 98 04/15/17 17:56 98.7 75 14 129/85 98 I/O 04/15/17 04/15/17 04/15/17 04/16/17 04/16/17 04/16/17 07:00 15:00 23:00 07:00 15:00 23:00 Intake Total 1929 ml 1920 ml 1680 ml 600 ml Output Total 2000 ml Balance -71 ml 1920 ml 1680 ml 600 ml Intake Oral 1200 ml 1440 ml 1680 ml 600 ml IV Total 729 ml 480 ml Output Urine Total 2000 ml # Voids 8 2 3 2 Objective Remarks GENERAL: This is a well-nourished, well-developed patient, in no apparent distress. SKIN: No rashes, ecchymoses or lesions. Cool and dry. HEAD: Atraumatic. Normocephalic. No temporal or scalp tenderness. EYES: Pupils equal round and reactive. Extraocular motions intact. No scleral icterus. No injection or drainage. ENT: Nose without bleeding, purulent drainage or septal hematoma. Throat without erythema, tonsillar hypertrophy or exudate. Uvula midline. Airway patent. NECK: Trachea midline. No JVD or lymphadenopathy. Supple, nontender, no meningeal signs. CARDIOVASCULAR: Regular rate and rhythm without murmurs, gallops, or rubs. Prominent S2 RESPIRATORY: Clear to auscultation. Breath sounds equal bilaterally. No wheezes , rales, or rhonchi. GASTROINTESTINAL: Abdomen soft, non-tender, nondistended. No guarding. MUSCULOSKELETAL: Extremities without clubbing, cyanosis, or edema. No joint tenderness, effusion, or edema noted. No calf tenderness. NEUROLOGICAL: Awake and alert. Cranial nerves II through XII intact. Motor and sensory grossly within normal limits. Five out of 5 muscle strength in all muscle groups. Normal speech. Improved tremors A/P Assessment and Plan This is a 56-year-old male with history of schizoaffective disorder. Presented to [facility] complaining of generalized weakness and was found to have lithium toxicity and was medically managed with IV hydration. He admitted to suicidal ideation and taking extra doses of lithium. Has been placed under Dyer act and was transferred to [facility] psych floor. Consultation has been requested by his attending to evaluate and manage lithium toxicity. Repeat lithium level was 0.8 and has advised RN to discontinue IV fluids. According to his nurse, patient remains suicidal stating he will hang himself and overdose on meds. States he is demoralized because he doesn't have a home. Adrenal insufficiency status post pituitary tumor surgery on maintenance hydrocortisone. Stable Hypothyroidism. TSH is within normal limits on no meds Coronary artery disease status post stents 10 years ago not on medications. Denies chest pain. Continue aspirin Chronic tremors and has been referred to a neurologist Chronic kidney disease stage III. Stable. Avoid nephrotoxins Hypertension. Monitor with as needed clonidine Discharge Planning Patient medically stable and cleared for transfer to regular psychiatry floor Jarvis Cagle MD Apr 16, 2017 10:07
--- NOTE | 2017-04-16 14:13 | HHI.PYPN ---
Subjective Remarks Patient seen today for psychiatric evaluation, he is seen in the [facility], restless , disruptive, disorganized, but redirectable. Patient says that he has been looking for the social studies department chair since 6:30 this morning "I want to tell her that my mother is lying about me and want to go back home", patient asked me "could you please give me the same medication that you are given to my roommate so I can get better like him". He is still very tremulous and shaky. Reports to be very upset, sleeping poorly at night, low level of energy and appetite, he denies suicidal ideation, but he adds that "that is something that I'm going to do later, not now", he refused to elaborate about this statement. He is oriented 3, compliant with medications. [place] level today is 0.8. Review of Systems Neurologic: COMPLAINS OF: Tremor Objective Alert: Yes [place]: Person, Place, Date Mood: Angry Affect: Blunted, Other (irritable) Memory Intact: Immediate, Recent, Comment (no fully assess) Hallucinations: Other (he denies) Delusions: No Delusion Type: Other (not elicited) Suicidal: Ideation (ambivalent suicidal ideation) Homicidal: Ideation (HI) Insight/Judgment Poor Vitals/IOs Vital Signs Date Time Temp Pulse Resp B/P Pulse Ox O2 Delivery O2 Flow Rate FiO2 04/16/17 06:15 98.5 71 16 140/70 98 Intake and Output 04/15/17 04/15/17 04/15/17 07:59 15:59 23:59 Intake Total 1449 ml 1920 ml 1680 ml Output Total 2000 ml Balance -551 ml 1920 ml 1680 ml Assessment & Plan Problem List: (1) Schizoaffective disorder Assessment & Plan: Patient continues to be disorganized, unpredictable, with ambivalent suicidal ideation, no plan, disruptive and restless in the unit. We' ll continue current psychotropic regimen. ICD Code: F25.9 Assessment & Plan Estimated LOS: days Justification for Cont. Inpt. Patient has an 11 risk to decompensate at a lower level of care Braden Shah MD Apr 16, 2017 14:13
[2017-04-16 17:50] VITALS: BP 162/87; PULSE 80; RESP 16; TEMP 98.8; O2SAT 99
[2017-04-16] MEDS: clonazePAM 0.5 MG TAB PO SCH (20:26)
[2017-04-16] MEDS: traZODone HCL 100 MG TAB PO SCH (20:26)
[2017-04-17 05:15] VITALS: BP 155/78; PULSE 90; RESP 17; TEMP 99; O2SAT 96
--- NOTE | 2017-04-17 08:19 | HHI.PR ---
Subjective Remarks Follow-up lithium toxicity and chronic kidney disease. States he is doing okay denies weakness. Agrees to have repeat BMP in the morning secondary to history of chronic kidney disease with lithium usage. Discussed with RN, episodic BP elevation Objective Vitals Vital Signs Date Time Temp Pulse Resp B/P Pulse Ox O2 Delivery O2 Flow Rate FiO2 04/17/17 05:15 99.0 90 17 155/78 96 04/16/17 17:50 98.8 80 16 162/87 99 I/O 04/16/17 04/16/17 04/16/17 04/17/17 04/17/17 04/17/17 07:00 15:00 23:00 07:00 15:00 23:00 Intake Total 1920 ml 1680 ml 720 ml Balance 1920 ml 1680 ml 720 ml Intake Oral 1920 ml 1680 ml 720 ml # Voids 2 2 3 Objective Remarks GENERAL: This is a well-nourished, well-developed patient, in no apparent distress. SKIN: No rashes, ecchymoses or lesions. Cool and dry. HEAD: Atraumatic. Normocephalic. No temporal or scalp tenderness. EYES: Pupils equal round and reactive. Extraocular motions intact. No scleral icterus. No injection or drainage. ENT: Nose without bleeding, purulent drainage or septal hematoma. Throat without erythema, tonsillar hypertrophy or exudate. Uvula midline. Airway patent. NECK: Trachea midline. No JVD or lymphadenopathy. Supple, nontender, no meningeal signs. CARDIOVASCULAR: Regular rate and rhythm without murmurs, gallops, or rubs. Prominent S2 RESPIRATORY: Clear to auscultation. Breath sounds equal bilaterally. No wheezes , rales, or rhonchi. GASTROINTESTINAL: Abdomen soft, non-tender, nondistended. No guarding. MUSCULOSKELETAL: Extremities without clubbing, cyanosis, or edema. No joint tenderness, effusion, or edema noted NEUROLOGICAL: Awake and alert. Cranial nerves II through XII intact. Motor and sensory grossly within normal limits. Five out of 5 muscle strength in all muscle groups. Normal speech. Improved tremors A/P Assessment and Plan This is a 56-year-old male with history of schizoaffective disorder. Presented to [facility] complaining of generalized weakness and was found to have lithium toxicity and was medically managed with IV hydration. He admitted to suicidal ideation and taking extra doses of lithium. Has been placed under [place] act and was transferred to med psych floor. Consultation has been requested by his attending to evaluate and manage lithium toxicity. Repeat lithium level was 0.8 and has advised RN to discontinue IV fluids. [place] has been restarted and will monitor level Adrenal insufficiency status post pituitary tumor surgery on maintenance hydrocortisone. Stable Hypothyroidism. TSH is within normal limits on no meds Coronary artery disease status post stents 10 years ago not on medications. Denies chest pain. Continue aspirin Chronic tremors and has been referred to a neurologist. Improved Chronic kidney disease stage III. Repeat BMP tomorrow. Avoid nephrotoxins Hypertension. Monitor with as needed clonidine Discharge Planning Patient medically stable and cleared for transfer to regular psychiatry floor Jarvis Cagle MD Apr 17, 2017 08:19
[2017-04-17] MEDS: ASPIRIN EC 81 MG TABEC PO SCH (09:00)
[2017-04-17] MEDS: LITHIUM CARBONATE 300 MG TAB PO SCH ×2 (09:00→20:38)
[2017-04-17] MEDS: ZIPRASIDONE HCL 80 MG CAP PO SCH ×2 (09:00→20:38)
[2017-04-17] MEDS: HYDROCORTISONE 10 MG TAB PO SCH ×2 (09:00→20:39)
--- NOTE | 2017-04-17 13:58 | HHI.PYPN ---
Subjective Remarks Patient seen and examined with nurse. Chart reviewed. Case discussed with nursing staff. No behavioral issues noted although the patient is reported to be somewhat anxious. Patient does present as fairly anxious to me today. He complains of a long-standing resting tremor. Says "I could use some more meds. " Mood remains a little depressed. Denies suicidal ideation. No other side effects from medications. No physical complaints. Review of Systems Except as stated in HPI: all other systems reviewed are Neg Objective Alert: Yes [place]: Person (O x 3) Mood: Anxious Affect: Blunted Memory Intact: Comment (not formally assessed) Hallucinations: Other (no hallucinations) Delusions: No Delusion Type: Other (no delusions) Suicidal: Ideation (denies suicidal ideation) Homicidal: Ideation (no HI) Insight/Judgment Fair to poor Remarks Resting hand tremor. No cogwheeling. No dystonias, no dyskinesias. Thought process fairly linear. Grooming and hygiene fair. Labs Labs reviewed. Vitals/IOs Vital Signs Date Time Temp Pulse Resp B/P Pulse Ox O2 Delivery O2 Flow Rate FiO2 04/17/17 05:15 99.0 90 17 155/78 96 Intake and Output 04/16/17 04/16/17 04/17/17 08:00 16:00 00:00 Intake Total 1920 ml 1680 ml Balance 1920 ml 1680 ml Assessment & Plan Problem List: (1) Schizoaffective disorder ICD Code: F25.9 Assessment & Plan Titrate Klonopin to 0.5 mg twice daily to help manage anxiety. This also may help with patient's resting tremor, although we might also consider adding a scheduled beta harlan if this is a lithium tremor (may also be EPS from Tobias) . Check Li level in am. Appreciate ongoing hospitalist input. Continue other medications and care as ordered. Justification for Cont. Inpt. Risk for decompensation Discharge Planning Per Ronen Livingston MD Apr 17, 2017 13:58
[2017-04-17] MEDS: clonazePAM 0.5 MG TAB PO SCH ×2 (14:11→20:38)
[2017-04-17 18:00] VITALS: BP 110/68; PULSE 79; RESP 18; TEMP 99.3; O2SAT 96
[2017-04-17] MEDS: traZODone HCL 100 MG TAB PO SCH (20:39)
[2017-04-18 05:37] VITALS: BP 135/62; PULSE 86; RESP 15; TEMP 98.6; O2SAT 97
[2017-04-18] MEDS: ASPIRIN EC 81 MG TABEC PO SCH (08:13)
[2017-04-18] MEDS: ZIPRASIDONE HCL 80 MG CAP PO SCH ×2 (08:13→21:00)
[2017-04-18] MEDS: HYDROCORTISONE 10 MG TAB PO SCH ×2 (08:13→21:00)
[2017-04-18] MEDS: clonazePAM 0.5 MG TAB PO SCH ×2 (08:13→21:05)
[2017-04-18] MEDS: LITHIUM CARBONATE 300 MG TAB PO SCH ×2 (08:13→21:05)
[2017-04-18 09:23] LABS: BICARBONATE 27.4 MEQ/L (21.0-32.0); MAGNESIUM 2.2 MG/DL (1.5-2.5); POTASSIUM 3.5 MEQ/L (3.5-5.1)
--- NOTE | 2017-04-18 10:29 | HHI.PR ---
Subjective Remarks Follow-up visit lithium toxicity, chronic kidney disease, essential tremors. Patient seen and examined today lying in bed. States he is doing okay. States his sleeping on and off at night and makes him tired in the morning. Otherwise , denies pain and discomfort. Denies SOB/ dyspnea. Denies chest pain, palpitations, headaches, dizziness. Denies fevers, chills, n/v/d. Objective Vitals Vital Signs Date Time Temp Pulse Resp B/P Pulse Ox O2 Delivery O2 Flow Rate FiO2 04/18/17 05:37 98.6 86 15 135/62 97 04/17/17 18:00 99.3 79 18 110/68 96 I/O 04/17/17 04/17/17 04/17/17 04/18/17 04/18/17 04/18/17 07:00 15:00 23:00 07:00 15:00 23:00 Intake Total 720 ml 720 ml 1800 ml 480 ml Balance 720 ml 720 ml 1800 ml 480 ml Intake Oral 720 ml 720 ml 1800 ml 480 ml # Voids 3 1 2 Result Diagram: 04/18/17 0740 Objective Remarks GENERAL: This is a well-nourished, well-developed patient, in no apparent distress. SKIN: Warm and dry. HEENT: Normocephalic. Pupils equal round and reactive. Nose without bleeding. Airway patent. NECK: Trachea midline. No JVD. Supple. CARDIOVASCULAR: Regular rate and rhythm without murmurs, gallops, or rubs. RESPIRATORY: Clear to auscultation. Breath sounds equal bilaterally. No wheezes , rales, or rhonchi. GASTROINTESTINAL: Abdomen soft, non-tender, nondistended. Bowel Sounds normoactive x4. MUSCULOSKELETAL: Extremities without clubbing, cyanosis, or edema. Right upper extremity tremors greater than left upper extremity tremors NEUROLOGICAL: Awake and alert. Oriented to place, person. Moves all extremities. Normal speech. A/P Problem List: (1) Schizoaffective disorder ICD Code: F25.9 Status: Acute (2) Elevated lithium level ICD Code: R79.9 Status: Acute (3) CKD (chronic kidney disease) ICD Code: N18.9 Status: Acute (4) Bipolar disorder, now depressed ICD Code: F31.30 Status: Acute (5) Insomnia ICD Code: G47.00 Status: Acute (6) Disrupted sleep-wake cycle ICD Code: G47.20 Status: Acute (7) Anxiety disorder ICD Code: F41.9 Status: Acute Assessment and Plan This is a 56-year-old male with history of schizoaffective disorder. Presented to [facility] complaining of generalized weakness and was found to have lithium toxicity and was medically managed with IV hydration. He admitted to suicidal ideation and taking extra doses of lithium. Has been placed under [place] act and was transferred to [facility] psych floor. Consultation has been requested by his attending to evaluate and manage lithium toxicity. Repeat lithium level was 0.8 and has advised RN to discontinue IV fluids. [place] has been restarted and will monitor level Adrenal insufficiency status post pituitary tumor surgery on maintenance hydrocortisone. Stable Hypothyroidism. - TSH is within normal limits off meds Coronary artery disease status post stents 10 years ago not on medications. - Denies chest pain. - Continue aspirin Chronic tremors and has been referred to a neurologist. - Clonazepam Chronic kidney disease stage III. - Avoid nephrotoxins - SENIOR REVENUE ACCOUNTANT 1.49 --> 1.49 - Baseline possibly SENIOR REVENUE ACCOUNTANT 1.4 1.5 Hypertension. - Monitor with as needed clonidine DVT prop ambulation Full code Discuss with patient, nursing, Dr. Cagle Medically cleared to be transferred to regular psychiatric floor Mera Rodriguez Apr 18, 2017 10:29 am
--- NOTE | 2017-04-18 11:55 | HHI.PYPN ---
Subjective Remarks Patient seen and examined with nurse. Chart reviewed. Case discussed with nursing staff. No issues overnight. A little bit sleepy this morning per nursing staff. On my examination today, the patient is dozing in his room but easily arousable. Tremor continues. A little less anxious. No SI or HI. Requesting that his IVP discontinued. Per nurse, no meds per IV. I'll go ahead and discontinue the IV but I cautioned the patient that we may have to replace it if he subsequently requires IV fluids or other IV medications. Denies side effects from medications. No physical complaints. Review of Systems Except as stated in HPI: all other systems reviewed are Neg Objective Alert: Yes [place]: Person (O x 3) Mood: Anxious (less) Affect: Blunted Memory Intact: Comment (fair) Hallucinations: Other (no hallucinations) Delusions: No Delusion Type: Other (no delusions) Suicidal: Ideation (no SI) Homicidal: Ideation (no HI) Insight/Judgment Fair Remarks No new motor abnormalities noted. Tremor continues. Labs Test 04/18/17 07:40 Sodium Level 143 MEQ/L Potassium Level 3.5 MEQ/L Chloride Level 110 MEQ/L Carbon Dioxide Level 27.4 MEQ/L Anion Gap 6 MEQ/L Blood Urea Nitrogen 12 MG/DL Creatinine 1.49 MG/DL Estimat Glomerular Filtration 48 ML/MIN Rate Random Glucose 92 MG/DL Calcium Level 9.5 MG/DL Magnesium Level 2.2 MG/DL [place] Level 0.7 MEQ/L Labs reviewed. [place] level fairly stable. GFR stable. Vitals/IOs Vital Signs Date Time Temp Pulse Resp B/P Pulse Ox O2 Delivery O2 Flow Rate FiO2 04/18/17 05:37 98.6 86 15 135/62 97 Intake and Output 04/17/17 04/17/17 04/18/17 08:00 16:00 00:00 Intake Total 1200 ml 240 ml 1800 ml Balance 1200 ml 240 ml 1800 ml Assessment & Plan Problem List: (1) Schizoaffective disorder ICD Code: F25.9 Assessment & Plan Discontinue IV. Continue other medications and care as ordered. Continue to monitor on the unit. Justification for Cont. Inpt. Risk for decompensation. Discharge Planning Per Ronen Cornell MD Apr 18, 2017 11:55
[2017-04-18 12:31] LABS: AUTOMATED NEUTROPHIL # 6.3 TH/MM3 (1.8-7.7); BASOPHIL # 0.1 TH/MM3 (0-0.2); BASOPHIL % 0.7 % (0.0-2.0); EOSINOPHIL # 0.2 TH/MM3 (0-0.4); EOSINOPHIL % 2.7 % (0.0-4.0); HEMATOCRIT 42.6 % (39.0-51.0); HEMO FLAGS DIFF FINAL; LYMPH % 15.8 % (9.0-44.0); LYMPHOCYTE # 1.3 TH/MM3 (1.0-4.8); MEAN CORPUSCULAR HEMOGLOBIN 29.6 PG (27.0-34.0); MEAN CORPUSCULAR HGB CONC 33.6 % (32.0-36.0); MONO % 4.8 % (0.0-8.0); PLATELET COUNT 255 TH/MM3 (150-450); RED BLOOD COUNT 4.84 MIL/MM3 (4.50-5.90); RED CELL DISTRIBUTION WIDTH 13.6 % (11.6-17.2); WHITE BLOOD COUNT 8.3 TH/MM3 (4.0-11.0)
[2017-04-18] MEDS: traZODone HCL 100 MG TAB PO SCH (21:00)
[2017-04-19 05:30] VITALS: BP 127/72; PULSE 68; RESP 17; TEMP 97.5; O2SAT 99
[2017-04-19] MEDS: ASPIRIN EC 81 MG TABEC PO SCH (09:20)
[2017-04-19] MEDS: HYDROCORTISONE 10 MG TAB PO SCH ×2 (09:20→20:45)
[2017-04-19] MEDS: ZIPRASIDONE HCL 80 MG CAP PO SCH ×2 (09:20→20:43)
[2017-04-19] MEDS: clonazePAM 0.5 MG TAB PO SCH ×2 (09:21→20:43)
[2017-04-19] MEDS: LITHIUM CARBONATE 300 MG TAB PO SCH ×2 (09:21→20:43)
--- NOTE | 2017-04-19 15:25 | HHI.PYPN ---
Subjective Remarks Patient seen by me for the first time in the day room with Dr. Connelly, chart reviewed, patient appears somewhat irritable and mildly labile appears to be minimizing the occurrence with the lithium toxicity. However he denies suicidality homicidality voices or visions. Denies alcohol or drug use. States he lives with his grandmother and her 14-year-old granddaughter, grandmother stated that she can no longer care for the patient in her home due to her age his mood lability irritability and difficulty relating to a 14-year- old. We will be checking lithium level tomorrow with consideration of discontinuing the lithium totally related to his significant lithium toxicity. We will need to perhaps adjust the Geodon dose further while watching this gentleman behavior we'll also need to look at a placement for him Review of Systems Except as stated in HPI: all other systems reviewed are Neg Objective Alert: Yes [place]: Person (O x 3) Mood: Anxious (less) Affect: Blunted Memory Intact: Comment (fair) Hallucinations: Other (no hallucinations) Delusions: No Delusion Type: Other (no delusions) Suicidal: Ideation (no SI) Homicidal: Ideation (no HI) Insight/Judgment Poor Vitals/IOs Vital Signs Date Time Temp Pulse Resp B/P Pulse Ox O2 Delivery O2 Flow Rate FiO2 04/19/17 05:30 97.5 68 17 127/72 99 Intake and Output 04/18/17 04/18/17 04/19/17 08:00 16:00 00:00 Intake Total 480 ml 120 ml 720 ml Balance 480 ml 120 ml 720 ml Assessment & Plan Problem List: (1) Schizoaffective disorder ICD Code: F25.9 Assessment & Plan Estimated LOS: days patient remains somewhat irritable with little insight. Need to further monitor lithium levels need to further address the issues of behavior manic behavior irritability and placement Justification for Cont. Inpt. At this time patient will decompensate if placed in a lower level of care Discharge Planning To be determined Problem Qualifiers (1) Schizoaffective disorder: Qualified Code: F25.0 - Schizoaffective disorder, bipolar type Jeff Tyson MD Apr 19, 2017 15:25
[2017-04-19 16:44] VITALS: BP 116/74; PULSE 71; RESP 18; TEMP 97.5; O2SAT 98
[2017-04-19] MEDS: traZODone HCL 100 MG TAB PO SCH (20:43)
[2017-04-20 06:04] VITALS: BP 136/68; PULSE 74; RESP 18; TEMP 98.1; O2SAT 95
[2017-04-20] MEDS: LITHIUM CARBONATE 300 MG TAB PO SCH (09:00)
[2017-04-20] MEDS: ZIPRASIDONE HCL 80 MG CAP PO SCH ×2 (09:10→21:17)
[2017-04-20] MEDS: clonazePAM 0.5 MG TAB PO SCH ×2 (09:10→21:17)
[2017-04-20] MEDS: HYDROCORTISONE 10 MG TAB PO SCH ×2 (09:10→21:18)
[2017-04-20] MEDS: ASPIRIN EC 81 MG TABEC PO SCH (09:11)
--- NOTE | 2017-04-20 10:32 | HHI.PYPN ---
Subjective Remarks Patient seen in dayroom with nurse Devorah chart reviewed patient compliant medications. Patient somewhat intrusive and intense stating he did talk to his "mother" yesterday, continue somewhat vague and suspicious about discharge plans. I reinforced that it would be a transitional type placement. Patient compliant medication. [place] level drawn this a.m. came back at 0.8 on lithium 20 mg twice a day. Will decrease lithium to lithium SR 450 mg at at bedtime recheck level on the Review of Systems Except as stated in HPI: all other systems reviewed are Neg Objective Alert: Yes [place]: Person (O x 3) Mood: Anxious (less) Affect: Blunted Memory Intact: Comment (fair) Hallucinations: Other (no hallucinations) Delusions: No Delusion Type: Other (no delusions) Suicidal: Ideation (no SI) Homicidal: Ideation (no HI) Insight/Judgment Poor Labs Test 04/20/17 07:00 [place] Level 0.8 MEQ/L Vitals/IOs Vital Signs Date Time Temp Pulse Resp B/P Pulse Ox O2 Delivery O2 Flow Rate FiO2 04/20/17 06:04 98.1 74 18 136/68 95 Intake and Output 04/19/17 04/19/17 04/20/17 08:00 16:00 00:00 Intake Total 1080 ml Balance 1080 ml Assessment & Plan Problem List: (1) Schizoaffective disorder ICD Code: F25.9 Assessment & Plan Estimated LOS: days patient continues somewhat intrusive intense with little insight. See medication adjustments of lab ordered as above. Need to work with family related to placement issues Justification for Cont. Inpt. At this time patient will decompensate if placed in the lower level of care Discharge Planning To be determined Problem Qualifiers (1) Schizoaffective disorder: Qualified Code: F25.0 - Schizoaffective disorder, bipolar type Jeff Tyson MD Apr 20, 2017 10:32
--- NOTE | 2017-04-20 13:19 | PD.TTN ---
Present for Treatment Team Treatment Team Staff: Provider (Dr. Tyson), Nurse (Mario), Psych Therapist ( ZAC Reyna) Patient Problems 1. Discharge planning 2. Medication compliance 3. Knowledge deficit 4. Lack of coping skills Progress Toward Goals Provider Input: Dr. Tyson reported this patient is a transfer from [facility], lives with hismother, has a history of suicide attempts. Dr. Tyson reported the patient's lithiumlevel was high and the patient was not happy to be on the unit. Nurse Input: Mario reported the patient presents as oppositional, childkile, with hand tremors. According to Mario the patient is a . Mario reported the patient has a third grade education and possibly developmental delays. Psych Therapist Input: Counselor reported I will contact patient's family to obtain collateral information. Other Clinican Input: etelvina Lopez. therapy, reported the patient is not attending groups. Documentation Scribe: ZAC Reyna Date Resolved: Apr 19, 2017 Maru Vasquez Apr 20, 2017 13:19
[2017-04-20 17:54] VITALS: BP 135/77; PULSE 77; RESP 19; O2SAT 96
--- NOTE | 2017-04-20 18:31 | HHI.PR ---
Blank section for building Written by Indira Beltrán, acting as scribe for Dr. Nixon on 04/20/17 at 18:30. Chart reviewed lithium level now within acceptable range will defer to psychiatry for further treatment with lithium versus Geodon versus alternative medication. Patient appears medically stable at this time we'll sign off if patient's condition changes or further assistance is needed please reconsult Recommended outpatient follow-up after discharge Indira Beltrán Apr 20, 2017 18:31
[2017-04-20] MEDS: LITHIUM CARBONATE 450 MG CONTROLLED RELEASE TAB PO SCH (21:00)
[2017-04-20] MEDS: traZODone HCL 100 MG TAB PO SCH (21:18)
[2017-04-21 06:00] VITALS: BP 141/80; PULSE 72; RESP 16; TEMP 97.5
[2017-04-21] MEDS: ASPIRIN EC 81 MG TABEC PO SCH (08:59)
[2017-04-21] MEDS: HYDROCORTISONE 10 MG TAB PO SCH ×2 (08:59→22:20)
[2017-04-21] MEDS: clonazePAM 0.5 MG TAB PO SCH ×2 (09:00→22:21)
[2017-04-21] MEDS: ZIPRASIDONE HCL 80 MG CAP PO SCH ×2 (09:00→22:20)
--- NOTE | 2017-04-21 10:47 | HHI.PYPN ---
Subjective Remarks Patient seen in day room with nurse Talib, chart reviewed, patient compliant medications. Patient calm cooperative with me somewhat diffusely confused saying he has executive dysfunction. Is very poor short-term memory and very little of the way of writing skills or reading skills. He does denies suicidality voices visions at this time. For now continue treatment Review of Systems Except as stated in HPI: all other systems reviewed are Neg Objective Alert: Yes [place]: Person (O x 3) Mood: Anxious (less) Affect: Blunted Memory Intact: Comment (fair) Hallucinations: Other (no hallucinations) Delusions: No Delusion Type: Other (no delusions) Suicidal: Ideation (no SI) Homicidal: Ideation (no HI) Insight/Judgment Poor Vitals/IOs Vital Signs Date Time Temp Pulse Resp B/P Pulse Ox O2 Delivery O2 Flow Rate FiO2 04/21/17 06:00 97.5 72 16 141/80 04/20/17 17:54 96 Intake and Output 04/20/17 04/20/17 04/21/17 08:00 16:00 00:00 Intake Total 360 ml 600 ml Balance 360 ml 600 ml Assessment & Plan Problem List: (1) Schizoaffective disorder ICD Code: F25.9 Assessment & Plan Estimated LOS: days patient's continue somewhat intense somewhat labile, and somewhat vigilant. Is compliant medications Justification for Cont. Inpt. At this time patient will decompensate place to the lower level of care Discharge Planning To be determined Problem Qualifiers (1) Schizoaffective disorder: Qualified Code: F25.0 - Schizoaffective disorder, bipolar type Jeff Tyson MD Apr 21, 2017 10:47
[2017-04-21 18:00] VITALS: BP 131/74; PULSE 91; RESP 16; TEMP 98.4; O2SAT 95
[2017-04-21] MEDS: LITHIUM CARBONATE 450 MG CONTROLLED RELEASE TAB PO SCH (22:20)
[2017-04-21] MEDS: traZODone HCL 100 MG TAB PO SCH (22:21)
[2017-04-22 05:58] VITALS: BP 124/65; PULSE 78; RESP 16; TEMP 97.9
[2017-04-22] MEDS: clonazePAM 0.5 MG TAB PO SCH ×2 (08:37→20:32)
[2017-04-22] MEDS: ASPIRIN EC 81 MG TABEC PO SCH (08:37)
[2017-04-22] MEDS: HYDROCORTISONE 10 MG TAB PO SCH ×2 (08:38→20:29)
[2017-04-22] MEDS: ZIPRASIDONE HCL 80 MG CAP PO SCH ×2 (09:00→20:37)
--- NOTE | 2017-04-22 10:43 | HHI.PYPN ---
Subjective Remarks Patient seen in day room with nurse Pamela, chart review, patient compliant medications. 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 This been attempts by the counselors drink patient 's "mother" he further information concerning the status with this man. Also the counselor talk to him further about some of these issues that he claims. Review of Systems Except as stated in HPI: all other systems reviewed are Neg Objective Alert: Yes [place]: Person (O x 3) Mood: Anxious (less) Affect: Blunted Memory Intact: Comment (fair) Hallucinations: Other (no hallucinations) Delusions: No Delusion Type: Other (no delusions) Suicidal: Ideation (no SI) Homicidal: Ideation (no HI) Insight/Judgment Poor Vitals/IOs Vital Signs Date Time Temp Pulse Resp B/P Pulse Ox O2 Delivery O2 Flow Rate FiO2 04/22/17 05:58 97.9 78 16 124/65 04/21/17 18:00 95 Intake and Output 04/21/17 04/21/17 04/21/17 07:59 15:59 23:59 Intake Total 360 ml 360 ml 960 ml Balance 360 ml 360 ml 960 ml Assessment & Plan Problem List: (1) Schizoaffective disorder ICD Code: F25.9 Assessment & Plan Estimated LOS: days patient remains somewhat paranoid vigilant irritable. They 're having some difficulty attempt to reach patient's family. Further information concerning his behaviors and their feelings about placement Justification for Cont. Inpt. At this time patient will decompensate if placed in the lower level of care Discharge Planning To be determined Problem Qualifiers (1) Schizoaffective disorder: Qualified Code: F25.0 - Schizoaffective disorder, bipolar type Jeff Tyson MD Apr 22, 2017 10:42
[2017-04-22] MEDS ORDERED: LORazepam 2 MG/ML VIAL ONE (15:28)
[2017-04-22] MEDS ORDERED: LORazepam 1 MG TAB PO ONE (16:00)
[2017-04-22] MEDS ORDERED: LORazepam 2 MG/ML VIAL IM ONE (16:00)
[2017-04-22 17:29] VITALS: BP 182/86; PULSE 135; RESP 14; TEMP 98.3; O2SAT 100
[2017-04-22] MEDS: traZODone HCL 100 MG TAB PO SCH (20:29)
[2017-04-22] MEDS: LITHIUM CARBONATE 450 MG CONTROLLED RELEASE TAB PO SCH (20:30)
[2017-04-23 06:54] VITALS: BP 127/71; PULSE 72; RESP 17; TEMP 98; O2SAT 99
[2017-04-23] MEDS: HYDROCORTISONE 10 MG TAB PO SCH ×2 (10:03→19:49)
[2017-04-23] MEDS: clonazePAM 0.5 MG TAB PO SCH ×2 (10:04→19:49)
[2017-04-23] MEDS: ASPIRIN EC 81 MG TABEC PO SCH (10:04)
[2017-04-23] MEDS: ZIPRASIDONE HCL 80 MG CAP PO SCH ×2 (10:04→19:49)
--- NOTE | 2017-04-23 12:32 | HHI.PYPN ---
Subjective Remarks Patient seen in his room with nurse Riya, patient somewhat calmer today to ask when he will go home, continues also to perseverate somewhat on his financial responsibilities and bills. It appears this is somewhat of a segment of his imagination. For now we will increase the Geodon to 80 mg a.m. 160 mg p.m. If Patient continues to do well over the weekend will consider discharge home Review of Systems Except as stated in HPI: all other systems reviewed are Neg Objective Alert: Yes [place]: Person (O x 3) Mood: Anxious (less) Affect: Blunted Memory Intact: Comment (fair) Hallucinations: Other (no hallucinations) Delusions: No Delusion Type: Other (no delusions) Suicidal: Ideation (no SI) Homicidal: Ideation (no HI) Insight/Judgment Poor Labs Test 04/23/17 07:55 [place] Level 0.7 MEQ/L Vitals/IOs Vital Signs Date Time Temp Pulse Resp B/P Pulse Ox O2 Delivery O2 Flow Rate FiO2 04/23/17 06:54 98.0 72 17 127/71 99 Intake and Output 04/22/17 04/22/17 04/22/17 07:59 15:59 23:59 Intake Total 240 ml 600 ml Balance 240 ml 600 ml Assessment & Plan Problem List: (1) Schizoaffective disorder ICD Code: F25.9 Assessment & Plan Estimated LOS: days patient continues somewhat psychotic delusional, though slightly softer. See medication adjustment above Justification for Cont. Inpt. At this time patient will decompensate if placed in a lower level of care Discharge Planning To be determined Problem Qualifiers (1) Schizoaffective disorder: Qualified Code: F25.0 - Schizoaffective disorder, bipolar type Jeff Tyson MD Apr 23, 2017 12:32
[2017-04-23 16:10] VITALS: BP 155/99; PULSE 88; RESP 18; TEMP 98.1; O2SAT 96
[2017-04-23] MEDS: traZODone HCL 100 MG TAB PO SCH (19:49)
[2017-04-24 06:00] VITALS: BP 131/66; PULSE 74; RESP 17; TEMP 97.9; O2SAT 97
[2017-04-24] MEDS: ASPIRIN EC 81 MG TABEC PO SCH (09:48)
[2017-04-24] MEDS: clonazePAM 0.5 MG TAB PO SCH ×2 (09:48→20:43)
[2017-04-24] MEDS: ZIPRASIDONE HCL 80 MG CAP PO SCH ×2 (09:48→20:42)
[2017-04-24] MEDS: HYDROCORTISONE 10 MG TAB PO SCH ×2 (09:49→20:44)
--- NOTE | 2017-04-24 12:21 | HHI.PYPN ---
Subjective Remarks Patient was seen and case discussed with nursing. Patient has poor eye contact and apathetic affect. Somewhat internally preoccupied. Denies auditory visual hallucinations. Denies suicidal ideation intent or plan. His compliant with his medications Objective Alert: Yes [place]: Person (O x 3) Mood: Calm Affect: Flat Memory Intact: Comment (fair) Hallucinations: Other (no hallucinations) Delusions: No Delusion Type: Other (no delusions) Suicidal: Ideation (no SI) Homicidal: Ideation (no HI) Insight/Judgment Poor Vitals/IOs Vital Signs Date Time Temp Pulse Resp B/P Pulse Ox O2 Delivery O2 Flow Rate FiO2 04/24/17 06:00 97.9 74 17 131/66 97 Intake and Output 04/23/17 04/23/17 04/24/17 08:00 16:00 00:00 Intake Total 480 ml 1480 ml Output Total 1 ml Balance 480 ml 1479 ml Assessment & Plan Problem List: (1) Schizoaffective disorder ICD Code: F25.9 Assessment & Plan Continue current treatment plan Justification for Cont. Inpt. Patient will decompensate in a less restrictive setting Problem Qualifiers (1) Schizoaffective disorder: Qualified Code: F25.0 - Schizoaffective disorder, bipolar type Shai Coreas DO Apr 24, 2017 12:21
[2017-04-24] MEDS: traZODone HCL 100 MG TAB PO SCH (20:43)
[2017-04-25 06:00] VITALS: BP 148/68; PULSE 75; RESP 20; TEMP 98; O2SAT 96
[2017-04-25] MEDS: ZIPRASIDONE HCL 80 MG CAP PO SCH ×2 (09:33→20:10)
[2017-04-25] MEDS: clonazePAM 0.5 MG TAB PO SCH ×2 (09:34→20:10)
[2017-04-25] MEDS: HYDROCORTISONE 10 MG TAB PO SCH ×2 (09:34→20:11)
[2017-04-25] MEDS: ASPIRIN EC 81 MG TABEC PO SCH (09:34)
--- NOTE | 2017-04-25 11:01 | HHI.PYPN ---
Subjective Remarks Patient was seen and case discussed with nursing. Patient slept well. Mood today is "terrible." He is perseverant on where he will be discharged to. Remains blunted and apathetic. His compliant with his medications. Denies auditory visual hallucinations. Seclusive to self Objective Alert: Yes [place]: Person (O x 3), Place Mood: Oppositional Affect: Blunted Memory Intact: Comment (fair) Hallucinations: Other (no hallucinations) Delusions: No Delusion Type: Other (no delusions) Suicidal: Ideation (no SI) Homicidal: Ideation (no HI) Insight/Judgment Poor Vitals/IOs Vital Signs Date Time Temp Pulse Resp B/P Pulse Ox O2 Delivery O2 Flow Rate FiO2 04/25/17 06:00 98.0 75 20 148/68 96 Intake and Output 04/24/17 04/24/17 04/25/17 08:00 16:00 00:00 Intake Total 240 ml 360 ml 1200 ml Balance 240 ml 360 ml 1200 ml Assessment & Plan Problem List: (1) Schizoaffective disorder ICD Code: F25.9 Assessment & Plan Continue current treatment plan Justification for Cont. Inpt. Patient would decompensate in a less restrictive setting Problem Qualifiers (1) Schizoaffective disorder: Qualified Code: F25.0 - Schizoaffective disorder, bipolar type Shai Coreas DO Apr 25, 2017 11:01
[2017-04-25 18:42] VITALS: BP 157/76; PULSE 72; RESP 18; TEMP 98.2; O2SAT 97
[2017-04-25] MEDS: traZODone HCL 100 MG TAB PO SCH (20:09)
[2017-04-26 06:14] VITALS: BP 132/78; PULSE 75; RESP 15; TEMP 98.7; O2SAT 98
[2017-04-26] MEDS: HYDROCORTISONE 10 MG TAB PO SCH ×2 (09:00→21:00)
[2017-04-26] MEDS: ASPIRIN EC 81 MG TABEC PO SCH (09:00)
[2017-04-26] MEDS: ZIPRASIDONE HCL 80 MG CAP PO SCH ×2 (09:00→21:01)
[2017-04-26] MEDS: clonazePAM 0.5 MG TAB PO SCH ×2 (09:00→21:00)
--- NOTE | 2017-04-26 11:58 | PD.TTN ---
Present for Treatment Team Treatment Team Staff: Provider (Dr. Tyson), Nurse (Maty), Psych Therapist ( ZAC Reyna), Other Clinician (Jessica, rec. therapy) Patient Problems 1. Discharge planning 2. Medication compliance 3. Knowledge deficit 4. Lack of coping skills Progress Toward Goals Provider Input: Dr. Tyson requested an update regarding patient's progress, medication management, treatment plan, and discharge plan. Nurse Input: Maty reported the patient "throws fits" and is easily angered. Patient is compliant with medications and entitled. Psych Therapist Input: Counselor reported the patient remains entitled, arrogant, and rude and mean to his mother while on the phone. Counselor reported the patient was denied placement at [facility] because "he wouldn't fit in at their facility." Other Clinican Input: Jessica reported the patient is not aprticipating in recreational groups. Documentation Scribe: ZAC Reyna Date Resolved: Apr 26, 2017 Maru Vasquez Apr 26, 2017 11:58
--- NOTE | 2017-04-26 15:51 | HHI.PYPN ---
Subjective Remarks Patient seen in [facility] before [place], patient complains of anxiety, requesting benzodiazepine. I respectfully declined to give that to 1: We will adjust his schedule medications. Without getting into the dangers of increased benzodiazepines. Will increase his Geodon to 160 mg twice a day. Patient is aware of his need to find lodging since his mother will not allow him back amounts Review of Systems Except as stated in HPI: all other systems reviewed are Neg Objective Alert: Yes [place]: Person (O x 3), Place Mood: Oppositional Affect: Blunted Memory Intact: Comment (fair) Hallucinations: Other (no hallucinations) Delusions: No Delusion Type: Other (no delusions) Suicidal: Ideation (no SI) Homicidal: Ideation (no HI) Insight/Judgment Very poor Vitals/IOs Vital Signs Date Time Temp Pulse Resp B/P Pulse Ox O2 Delivery O2 Flow Rate FiO2 04/26/17 06:14 98.7 75 15 132/78 98 Intake and Output 04/25/17 04/25/17 04/25/17 07:59 15:59 23:59 Intake Total 0 ml 440 ml Balance 0 ml 440 ml Assessment & Plan Problem List: (1) Schizoaffective disorder ICD Code: F25.9 Assessment & Plan Estimated LOS: days patient continue psychotic paranoid and intense. See medication adjustment above Justification for Cont. Inpt. At this time patient will decompensate the placed at a lower level of care Discharge Planning To be determined Problem Qualifiers (1) Schizoaffective disorder: Qualified Code: F25.0 - Schizoaffective disorder, bipolar type Jeff Tyson MD Apr 26, 2017 15:50
[2017-04-26] MEDS: traZODone HCL 100 MG TAB PO SCH (21:00)
[2017-04-27 06:06] VITALS: BP 155/82; PULSE 75; RESP 18; TEMP 97.9; O2SAT 97
[2017-04-27] MEDS: ZIPRASIDONE HCL 80 MG CAP PO SCH ×2 (09:26→20:58)
[2017-04-27] MEDS: ASPIRIN EC 81 MG TABEC PO SCH (09:27)
[2017-04-27] MEDS: clonazePAM 0.5 MG TAB PO SCH ×2 (09:27→20:59)
[2017-04-27] MEDS: HYDROCORTISONE 10 MG TAB PO SCH ×2 (13:50→20:58)
--- NOTE | 2017-04-27 16:07 | HHI.PYPN ---
Subjective Remarks Patient seen in [place] with floor staff, patient continues somewhat intrusive demanding with little insight. Asking to see his counselor related to placement issues. Compliant medications. For now continue treatment Review of Systems Except as stated in HPI: all other systems reviewed are Neg Objective Alert: Yes [place]: Person (O x 3), Place Mood: Oppositional Affect: Blunted Memory Intact: Comment (fair) Hallucinations: Other (no hallucinations) Delusions: No Delusion Type: Other (no delusions) Suicidal: Ideation (no SI) Homicidal: Ideation (no HI) Insight/Judgment Poor Vitals/IOs Vital Signs Date Time Temp Pulse Resp B/P Pulse Ox O2 Delivery O2 Flow Rate FiO2 04/27/17 06:06 97.9 75 18 155/82 97 Intake and Output 04/26/17 04/26/17 04/27/17 08:00 16:00 00:00 Intake Total 240 ml Balance 240 ml Assessment & Plan Problem List: (1) Schizoaffective disorder ICD Code: F25.9 Assessment & Plan Estimated LOS: days patient continues intense somewhat labile with a paranoid overlay. Compliant medications Justification for Cont. Inpt. At this time patient will decompensate in place to the lower level of care Discharge Planning To be determined Problem Qualifiers (1) Schizoaffective disorder: Qualified Code: F25.0 - Schizoaffective disorder, bipolar type Jeff Tyson MD Apr 27, 2017 16:07
[2017-04-27] MEDS: cloNIDine HCL 0.1 MG TAB PO PRN (16:19)
[2017-04-27 18:00] VITALS: BP 170/100; PULSE 98; RESP 18; TEMP 98.2; O2SAT 96
[2017-04-27 19:16] VITALS: BP 142/88; PULSE 80
[2017-04-27] MEDS: traZODone HCL 100 MG TAB PO SCH (20:58)
[2017-04-28 06:15] VITALS: BP 126/71; PULSE 74; RESP 18; TEMP 98.6; O2SAT 96
[2017-04-28] MEDS: HYDROCORTISONE 10 MG TAB PO SCH ×2 (09:31→20:08)
[2017-04-28] MEDS: ZIPRASIDONE HCL 80 MG CAP PO SCH ×2 (09:31→20:08)
[2017-04-28] MEDS: ASPIRIN EC 81 MG TABEC PO SCH (09:32)
[2017-04-28] MEDS: clonazePAM 0.5 MG TAB PO SCH ×2 (09:32→20:09)
--- NOTE | 2017-04-28 13:40 | HHI.PYPN ---
Subjective Remarks Patient seen in [facility] with floor staff, chart review, patient compliant medication. Patient continues somewhat irritable intrusive demanding. Focusing on his discharge. It seems he is starting to accept the fact that he will not be able to return to his mother's house. For now continue treatment Review of Systems Except as stated in HPI: all other systems reviewed are Neg Objective Alert: Yes [place]: Person (O x 3), Place Mood: Oppositional Affect: Blunted Memory Intact: Comment (fair) Hallucinations: Other (no hallucinations) Delusions: No Delusion Type: Other (no delusions) Suicidal: Ideation (no SI) Homicidal: Ideation (no HI) Insight/Judgment Very poor Vitals/IOs Vital Signs Date Time Temp Pulse Resp B/P Pulse Ox O2 Delivery O2 Flow Rate FiO2 04/28/17 06:15 98.6 74 18 126/71 96 Intake and Output 04/27/17 04/27/17 04/28/17 08:00 16:00 00:00 Intake Total 480 ml Balance 480 ml Assessment & Plan Problem List: (1) Schizoaffective disorder ICD Code: F25.9 Assessment & Plan Estimated LOS: days patient continues intrusive paranoid somewhat intimidating , compliant medications. For now continue treatment Justification for Cont. Inpt. At this time patient will decompensate with placed in a lower level of care Discharge Planning To be determined Problem Qualifiers (1) Schizoaffective disorder: Qualified Code: F25.0 - Schizoaffective disorder, bipolar type Jeff Tyson MD Apr 28, 2017 13:40
[2017-04-28 19:19] VITALS: BP 149/89; PULSE 88; RESP 18; TEMP 98.1; O2SAT 100
[2017-04-28] MEDS: traZODone HCL 100 MG TAB PO SCH (20:09)
[2017-04-29 06:19] VITALS: BP 120/67; PULSE 79; RESP 18; TEMP 98.8; O2SAT 98
[2017-04-29] MEDS: HYDROCORTISONE 10 MG TAB PO SCH ×2 (08:30→20:18)
[2017-04-29] MEDS: clonazePAM 0.5 MG TAB PO SCH ×2 (08:30→20:18)
[2017-04-29] MEDS: ASPIRIN EC 81 MG TABEC PO SCH (08:30)
[2017-04-29] MEDS: ZIPRASIDONE HCL 80 MG CAP PO SCH ×2 (08:30→20:18)
--- NOTE | 2017-04-29 11:58 | HHI.PYPN ---
Subjective Remarks Patient seen in his room with floor staff, chart review, patient compliant medication. Patient continues somewhat manipulative whiny and demanding and entitled. However his mother has made it quite clear that he is not welcome in her home at this time. I discussed with them placement issues including in the [facility] versus [facility] versus homelessness and the [facility]. Patient initially showed little insight into this stating he just wants to go home. However counselor Annmarie also talked with patient it appears may be more willing to look at a family fpc type situation. If you're able to find a family home by tomorrow and he refuses and that he'll be discharged to himself Review of Systems Except as stated in HPI: all other systems reviewed are Neg Objective Alert: Yes [place]: Person (O x 3), Place Mood: Oppositional Affect: Blunted Memory Intact: Comment (fair) Hallucinations: Other (no hallucinations) Delusions: No Delusion Type: Other (no delusions) Suicidal: Ideation (no SI) Homicidal: Ideation (no HI) Insight/Judgment Very poor Vitals/IOs Vital Signs Date Time Temp Pulse Resp B/P Pulse Ox O2 Delivery O2 Flow Rate FiO2 04/29/17 06:19 98.8 79 18 120/67 98 Intake and Output 04/28/17 04/28/17 04/28/17 07:59 15:59 23:59 Intake Total 480 ml Balance 480 ml Assessment & Plan Problem List: (1) Schizoaffective disorder ICD Code: F25.9 Assessment & Plan Estimated LOS: days patient overall improved though continues manipulative with little insight, compliant medications though at times voicing multiple somatic issues that seem to be related to drug-seeking behavior Justification for Cont. Inpt. At this time patient will decompensate not placed in an appropriate level of care Discharge Planning To be determined Problem Qualifiers (1) Schizoaffective disorder: Qualified Code: F25.0 - Schizoaffective disorder, bipolar type Jeff Tyson MD Apr 29, 2017 11:58
[2017-04-29 16:30] VITALS: BP 114/73; PULSE 73; RESP 18; TEMP 97.4; O2SAT 99
[2017-04-29] MEDS: traZODone HCL 100 MG TAB PO SCH (20:18)
[2017-04-30 05:46] VITALS: BP 153/78; PULSE 77; RESP 16; TEMP 98.1; O2SAT 98
[2017-04-30] MEDS: ZIPRASIDONE HCL 80 MG CAP PO SCH ×2 (08:26→19:30)
[2017-04-30] MEDS: HYDROCORTISONE 10 MG TAB PO SCH ×2 (08:26→19:31)
[2017-04-30] MEDS: clonazePAM 0.5 MG TAB PO SCH ×2 (08:26→19:30)
[2017-04-30] MEDS: ASPIRIN EC 81 MG TABEC PO SCH (08:26)
[2017-04-30] MEDS ORDERED: CORT5TAB PO (13:14)
[2017-04-30] MEDS ORDERED: CLON.5 PO (13:14)
[2017-04-30] MEDS ORDERED: ASPI-99 PO (13:14)
[2017-04-30] MEDS ORDERED: GEOD80CA PO (13:14)
[2017-04-30] MEDS ORDERED: TRAZ300T2 PO (13:14)
--- NOTE | 2017-04-30 13:20 | HHI.DS ---
Psychiatry Discharge Summary Inpatient Psychiatric care?: Yes Advance Directive: No Reason Not Provided: declines Mental Health AdvanceDirective: No Health Care Proxy: No Admission Admission Date Apr 14, 2017 at 17:12 Admission Diagnosis: (1) Schizoaffective disorder ICD Code: F25.9 Brief History 04/14/2017 The patient is a 56-year-old man, domiciled with his mother , unemployed, retired, , , with psychiatric history of schizoaffective disorder, previous psychiatric hospitalizations, suicide attempts, acting outpatient care with Dr. Randle, he is on Geodon 80 mg twice a day, lithium 1200 mg Trazodone 300 mf hs, medical history of hypertension, hypothyroidism, who presents to the emergency department complaining of generalized weakness. Patient reports that he was feeling weak and then he fell out of bed. EMS reports they picked him up in his yard eating [employer]. He was recently admitted with an elevated lithium level. Patient states is been ongoing for quite some time, year or so, but is not getting any better. On psychiatric evaluation today patient is found in his bed, he is calm and cooperative, he says that he is tired and he feels very fatigued. He says that he doesn't want to live anymore, and he has been seriously thinking about overdosing with lithium or hanging himself. Patient says that he feels hopeless pessimistic, with low self esteem, low energy, poor concentration, he says that he has lost about 20 pounds in the last 2-3 months. Patient says that he cannot understand why he is so tired all the time. Patient reports compliance with medications on and off. He says that he is fully compliant with his lithium "but sometimes taking more than usual". Patient reports suicidal ideation, no immediate plan, but he has been thinking in overdosing with lithium at his condition doesn't improve. Patient is not clear about the dose of his psychotropics. This is the second time in a short period of time that the patient has been admitted due to elevated lithium levels. Collateral information could not be obtained at this moment. Patient is partially oriented in time, oriented in place, seems to be confused and disorganized at time. He denies the use of drugs and alcohol. 04/15/2017 Today a psychiatric evaluation patient is on his bed, he is upset, very irritable and oppositional. Patient says that he is upset because his mother doesn't want him back to his house "because she is confabulating with with my 18 years old niece to steal my car". Patient says that he doesn't want to go to a [facility] "I want to go back home". He reports depressive symptoms, sadness, anxiety, suicidal thoughts, but not intention. Patient is able to contract for safety in the unit. Patient is disoriented to place 3. As per nursing staff, last night patient did not sleep, I spent the whole night walking in the unit, talking and disrupting other patients. On this evaluation patient is very tremulous in both hands.. Tobacco Use In Past 30 Days: No Tobacco Past 30 Days Alcohol Use: Never Hospital Course Patient's hospital course was somewhat uneventful. Patient show compliance with his medication from early in the admission. Remain somewhat intrusive somewhat demanding though redirectable. He showed very little insight into the dynamics with his family. It took him some amount of time to acknowledged and accepted his mother's refusal to allow him back on the home. However he has shown coming and some processing lately. He denies suicidality homicidality voices or visions. States is now willing daughter detention. Placement has been found at the [facility] patient available today. Patient is willing to go there. Thus patient be discharged today with Rx 1 month the follow-up mental health services through that facility Results Blood Pressure 153 / 78 Vital Signs Date Time Temp Pulse Resp B/P Pulse Ox O2 Delivery O2 Flow Rate FiO2 04/30/17 05:46 98.1 77 16 153/78 98 [place] level 0.7 on 04/23 Summary of Procedures None done Pending results at discharge: No Medications # of Antipsychotic meds at D/C: 1 Approp Antipsych med options 1 - Minimum of three failed multiple trials of monotherapy. 2 - Documented plan to taper to monotherapy due to previous use of multiple meds OR cross-taper in progress at D/C. 3 - Documentation of augmentation of Clozapine. 4 - Justification other than those listed in allowable values 1-3, document here : Discharge Discharge Date: Apr 30, 2017 Discharge Diagnosis: (1) Schizoaffective disorder Diagnosis: Principal ICD Code: F25.9 Mental Status Exam at Disch Alert oriented somewhat disheveled white male. He has normoactive to slightly hyperactive, his mood is euthymic to mildly irritable, with good range intensity was affect. Speech screened with a slightly increased is mildly tangential. There are no auditory or visual hallucinations noted no delusions noted though there is mild vigilance and some mild paranoia, insight and judgment is poor cognition is marginal Pt Condition on Discharge: Stable Discharge Disposition: [facility] Discharge Instructions Diet Instructions: As Tolerated, No Restrictions Activities you can perform: Regular-No Restrictions Scheduled Appointment: follow-up mental health services through [facility] Discharge Time > 30 minutes Discharge/Advance Care Plan Health Problems: (1) Schizoaffective disorder Goals to promote your health * To prevent worsening of your condition and complications * To maintain your health at the optimal level Directions to meet your goals Take your medications as prescribed Follow your dietary instruction Follow activity as directed Keep your appointments as scheduled Take your immunizations and boosters as scheduled If your symptoms worsen call your PCP, if no PCP go to Urgent Care Center or Emergency Room For 26/04 questions related to your inpatient stay or results of tests pending at discharge, please contact Dr. Jeff Tyson at Smoking is Dangerous to Your Health. Avoid second hand smoking Problem Qualifiers (1) Schizoaffective disorder: Qualified Code: F25.0 - Schizoaffective disorder, bipolar type Jeff Tyson MD Apr 30, 2017 13:20
[2017-04-30 17:32] VITALS: BP 169/91; PULSE 94; RESP 16; TEMP 99.5; O2SAT 95
[2017-04-30] MEDS: traZODone HCL 100 MG TAB PO SCH (19:30)
[2017-05-01 06:02] VITALS: BP 129/63; PULSE 71; RESP 16; TEMP 98.2; O2SAT 95
[2017-05-01] MEDS: ZIPRASIDONE HCL 80 MG CAP PO SCH ×2 (10:16→21:35)
[2017-05-01] MEDS: HYDROCORTISONE 10 MG TAB PO SCH ×2 (10:16→21:34)
[2017-05-01] MEDS: ASPIRIN EC 81 MG TABEC PO SCH (10:17)
[2017-05-01] MEDS: clonazePAM 0.5 MG TAB PO SCH ×2 (10:18→21:35)
--- NOTE | 2017-05-01 15:41 | HHI.PYPN ---
Subjective Remarks Pt seen and discussed with staff. No behavioral problems on unit. Pt states that his mood is "terrible" and he is anxious about transition to [facility]. He denies psychosis. He has been staying in room most of the day. . Objective Alert: Yes [place]: Person (O x 3), Place Mood: Oppositional, Other (irritable) Affect: Blunted Memory Intact: Comment (fair) Hallucinations: Other (no hallucinations) Delusions: No Delusion Type: Other (no delusions) Suicidal: Ideation (no SI) Homicidal: Ideation (no HI) Insight/Judgment limited Vitals/IOs Vital Signs Date Time Temp Pulse Resp B/P Pulse Ox O2 Delivery O2 Flow Rate FiO2 05/01/17 06:02 98.2 71 16 129/63 95 Assessment & Plan Problem List: (1) Schizoaffective disorder ICD Code: F25.9 Assessment & Plan Continue current tx plan. Estimated LOS: days Justification for Cont. Inpt. risk of decompensation Problem Qualifiers (1) Schizoaffective disorder: Qualified Code: F25.0 - Schizoaffective disorder, bipolar type Estelle Sotelo MD May 01, 2017 15:41
[2017-05-01] MEDS: cloNIDine HCL 0.1 MG TAB PO PRN (17:05)
[2017-05-01 18:41] VITALS: BP 177/108; PULSE 94; RESP 18; TEMP 98.1; O2SAT 99
[2017-05-01] MEDS: traZODone HCL 100 MG TAB PO SCH (21:34)
[2017-05-02 06:12] VITALS: BP 128/77; PULSE 73; RESP 18; TEMP 98.1; O2SAT 93
[2017-05-02] MEDS: HYDROCORTISONE 10 MG TAB PO SCH ×2 (09:00→20:21)
[2017-05-02] MEDS: ZIPRASIDONE HCL 80 MG CAP PO SCH ×2 (09:22→20:20)
[2017-05-02] MEDS: clonazePAM 0.5 MG TAB PO SCH ×2 (09:22→20:20)
[2017-05-02] MEDS: ASPIRIN EC 81 MG TABEC PO SCH (09:23)
--- NOTE | 2017-05-02 15:37 | HHI.PYPN ---
Subjective Remarks PT seen and discussed with staff. He reports that he is depressed and anxious. He denies medication side effects. No SI/HI. No psychosis. Objective Alert: Yes [place]: Person, Place, Date Mood: Other (irritable) Affect: Restricted Memory Intact: Comment (fair) Hallucinations: Other (no hallucinations) Delusions: No Delusion Type: Other (no delusions) Suicidal: Ideation (no SI) Homicidal: Ideation (no HI) Insight/Judgment poor Vitals/IOs Vital Signs Date Time Temp Pulse Resp B/P Pulse Ox O2 Delivery O2 Flow Rate FiO2 05/02/17 06:12 98.1 73 18 128/77 93 Assessment & Plan Problem List: (1) Schizoaffective disorder ICD Code: F25.9 Assessment & Plan Continue current tx plan. Estimated LOS: days Justification for Cont. Inpt. risk of decompensation Problem Qualifiers (1) Schizoaffective disorder: Qualified Code: F25.0 - Schizoaffective disorder, bipolar type Estelle Sotelo MD May 02, 2017 15:37
[2017-05-02 16:54] VITALS: BP 144/90; PULSE 83; RESP 18; TEMP 98.7; O2SAT 98
[2017-05-02] MEDS: traZODone HCL 100 MG TAB PO SCH (20:21)
[2017-05-03 06:00] VITALS: PULSE 74; RESP 18; TEMP 97.2; O2SAT 95
[2017-05-03] MEDS: ASPIRIN EC 81 MG TABEC PO SCH (09:03)
[2017-05-03] MEDS: ZIPRASIDONE HCL 80 MG CAP PO SCH (09:03)
[2017-05-03] MEDS: clonazePAM 0.5 MG TAB PO SCH (09:03)
[2017-05-03] MEDS: HYDROCORTISONE 10 MG TAB PO SCH (09:03)
--- NOTE | 2017-05-03 10:14 | HHI.PYPN ---
Subjective Remarks Patient to be discharged today to [facility]. There is a bed available today. Patient notified of this, showing some mild irritability resistance but coping with that. Rx 1 month follow-up mental health services through that facility Review of Systems Except as stated in HPI: all other systems reviewed are Neg Objective Alert: Yes [place]: Person, Place, Date Mood: Other (irritable) Affect: Restricted Memory Intact: Comment (fair) Hallucinations: Other (no hallucinations) Delusions: No Delusion Type: Other (no delusions) Suicidal: Ideation (no SI) Homicidal: Ideation (no HI) Insight/Judgment Poor Vitals/IOs Vital Signs Date Time Temp Pulse Resp B/P Pulse Ox O2 Delivery O2 Flow Rate FiO2 05/03/17 06:00 97.2 74 18 95 Assessment & Plan Problem List: (1) Schizoaffective disorder ICD Code: F25.9 Assessment & Plan Estimated LOS: days patient to be discharged today to [facility] Rx 1 month Justification for Cont. Inpt. There is a bed now available at [facility] to be discharged today Discharge Planning Discharged today Problem Qualifiers (1) Schizoaffective disorder: Qualified Code: F25.0 - Schizoaffective disorder, bipolar type Jeff Tyson MD May 03, 2017 10:14
[2017-05-03] MEDS: cloNIDine HCL 0.1 MG TAB PO PRN (10:47)
== END 2017-05-03 11:15 | disposition home or self-care (01) | DRG 885 ==
LOC: H4EA 17:12 → H250 04-18 14:15 → H260 04-26 13:52
PROVIDERS: ADMIT Psychiatry & Neurology Psychiatry; ATTEND Psychiatry & Neurology Psychiatry
DX: F25.0 Schizoaffective disorder, bipolar type (principal); R45.851 Suicidal ideations; N18.3 Chronic kidney disease, stage 3 (moderate); Z91.19 Patient's noncompliance with other medical treatment and regimen; I12.9 Hypertensive chronic kidney disease with stage 1 through stage 4 chronic kidney disease, or unspecified chronic kidney disease; E03.9 Hypothyroidism, unspecified; F41.9 Anxiety disorder, unspecified; G25.0 Essential tremor; G47.00 Insomnia, unspecified; T43.591A Poisoning by other antipsychotics and neuroleptics, accidental (unintentional), initial encounter; Z95.5 Presence of coronary angioplasty implant and graft; I25.10 Atherosclerotic heart disease of native coronary artery without angina pectoris; Z76.5 Malingerer [conscious simulation]; W06.XXXA Fall from bed, initial encounter; Y92.003 Bedroom of unspecified non-institutional (private) residence as the place of occurrence of the external cause
CPT/HCPCS: 80048; 80178; 83735; 85025; 90732; J2060

== ENCOUNTER 2017-05-10 20:39 | Emergency (ER) | payer MEDICAID, OTHER ==
[~2017-05-10] VITALS: Ht 167.6 cm; Wt 65.0 kg
[~2017-05-10 20:39] MED LIST changes: +ASPI-99 PO; +CLON.5 PO; +CORT5TAB PO; -LITH150C PO
[2017-05-10 20:56] VITALS: BP 129/83; PULSE 68; RESP 16; TEMP 98.3; O2SAT 98
[2017-05-10 21:39] VITALS: BP 132/78; PULSE 84; RESP 17; TEMP 97.6; O2SAT 97
[2017-05-10 23:09] LABS: AUTOMATED NEUTROPHIL # 7.7 TH/MM3 (1.8-7.7); BASOPHIL % 0.4 % (0.0-2.0); EOSINOPHIL # 0.2 TH/MM3 (0-0.4); EOSINOPHIL % 1.7 % (0.0-4.0); HEMATOCRIT 40.7 % (39.0-51.0); HEMO FLAGS DIFF FINAL; LYMPH % 20.8 % (9.0-44.0); LYMPHOCYTE # 2.3 TH/MM3 (1.0-4.8); MEAN CELL VOLUME 85.7 FL (80.0-100.0); MEAN CORPUSCULAR HEMOGLOBIN 29.4 PG (27.0-34.0); MEAN CORPUSCULAR HGB CONC 34.3 % (32.0-36.0); MONO % 6.7 % (0.0-8.0); NEUT % 70.4 % (16.0-70.0); PLATELET COUNT 239 TH/MM3 (150-450); RED BLOOD COUNT 4.75 MIL/MM3 (4.50-5.90); WHITE BLOOD COUNT 10.9 TH/MM3 (4.0-11.0)
[2017-05-10 23:14] LABS: AMPHETAMINE, URINE NEG (NEG); BARBITURATES, URINE NEG (NEG); COCAINE, URINE NEG (NEG)
[2017-05-10 23:34] LABS: ACETAMINOPHEN LESS THAN 2.0 MCG/ML (10.0-30.0); ALT (GPT) 15 U/L (12-78); ANION GAP 8 MEQ/L (5-15); AST (GOT) 9 U/L (15-37); BICARBONATE 25.6 MEQ/L (21.0-32.0); BLOOD UREA NITROGEN 21 MG/DL (7-18); CHLORIDE 104 MEQ/L (98-107); GLOMERULAR FILTRATION RATE 46 ML/MIN (>89); POTASSIUM 3.1 MEQ/L (3.5-5.1); SODIUM (NA) 138 MEQ/L (136-145)
[2017-05-10 23:36] LABS: ALKALINE PHOSPHATASE 51 U/L (45-117); TOTAL BILIRUBIN ADULT 0.3 MG/DL (0.2-1.0)
--- NOTE | 2017-05-11 01:00 | PD ---
HPI Chief Complaint: Psychiatric Symptoms Time Seen by Provider: 00:25 Travel History International Travel<30 days: No Contact w/Intl Traveler<30days: No Traveled to known affect area: No History of Present Illness HPI 56 year-old woman who presents emergency Department under [place] act. He reportedly called the [facility] see the psych tubbs and he reports they called the police. He just discharged from the psychiatric facility here. No other recent illness or injury. He is recently admitted for elevated lithium. No other complaints. History Past Medical History Narrative Medical Bipolar disorder/schizophrenia Influenza Vaccination: Yes Social History Alcohol Use: No Tobacco Use: No Allergies-Medications (Allergen,Severity, Reaction): Coded Allergies: No Known Allergies (Unverified , 05/10/17) Reported Meds & Prescriptions Reported Meds & Active Scripts Active Geodon (Ziprasidone) 80 Mg Cap 160 Mg PO 2 PO BID Klonopin (Clonazepam) 0.5 Mg Tab 0.5 Mg PO BID Adult Aspirin EC Low Strength (Aspirin) 81 Mg Tabec 81 Mg PO DAILY Reported Trazodone (Trazodone HCl) 300 Mg Tab 300 Mg PO HS Clonazepam 0.5 Mg Tab 0.5 Mg PO HS Hydrocortisone 5 Mg Tab 5 Mg PO BID Take with food to decrease GI upset Geodon (Ziprasidone) 80 Mg Cap 80 Mg PO BID Review of Systems Except as stated in HPI: all other systems reviewed are Neg Physical Exam Narrative GENERAL: 56-year-old man, no acute distress. SKIN: Focused skin assessment warm/dry. HEAD: Atraumatic. Normocephalic. CARDIOVASCULAR: Regular rate and rhythm. No murmur appreciated. RESPIRATORY: No accessory muscle use. Clear to auscultation. Breath sounds equal bilaterally. GASTROINTESTINAL: Abdomen soft, non-tender, nondistended. Hepatic and splenic margins not palpable. MUSCULOSKELETAL: No obvious deformities. No edema. NEUROLOGICAL: Awake and alert. No obvious cranial nerve deficits. Motor grossly within normal limits. Normal speech. PSYCHIATRIC: Appropriate mood and affect; insight and judgment normal. Data Data Last Documented VS Vital Signs Date Time Temp Pulse Resp B/P Pulse Ox O2 Delivery O2 Flow Rate FiO2 05/10/17 21:39 97.6 84 17 132/78 97 05/10/17 20:56 Room Air Orders Complete Blood Count With Diff (05/10/17 22:24) Comprehensive Metabolic Panel (05/10/17 22:24) Psych Screen (05/10/17 22:24) Drug Screen, Random Urine (05/10/17 22:24) Alcohol (Ethanol) (05/10/17 22:24) Salicylates (Aspirin) (05/10/17 22:24) Tylenol (Acetaminophen) (05/10/17 22:24) [place] (Li) (05/11/17 00:33) Labs Laboratory Tests Test 05/10/17 05/10/17 21:00 22:42 Urine Opiates Screen NEG Urine Barbiturates Screen NEG Urine Amphetamines Screen NEG Urine Benzodiazepines Screen NEG Urine Cocaine Screen NEG Urine Cannabinoids Screen NEG White Blood Count 10.9 TH/MM3 Red Blood Count 4.75 MIL/MM3 Hemoglobin 14.0 GM/DL Hematocrit 40.7 % Mean Corpuscular Volume 85.7 FL Mean Corpuscular Hemoglobin 29.4 PG Mean Corpuscular Hemoglobin 34.3 % Concent Red Cell Distribution Width 13.0 % Platelet Count 239 TH/MM3 Mean Platelet Volume 7.9 FL Neutrophils (%) (Auto) 70.4 % Lymphocytes (%) (Auto) 20.8 % Monocytes (%) (Auto) 6.7 % Eosinophils (%) (Auto) 1.7 % Basophils (%) (Auto) 0.4 % Neutrophils # (Auto) 7.7 TH/MM3 Lymphocytes # (Auto) 2.3 TH/MM3 Monocytes # (Auto) 0.7 TH/MM3 Eosinophils # (Auto) 0.2 TH/MM3 Basophils # (Auto) 0.0 TH/MM3 CBC Comment DIFF FINAL Differential Comment Sodium Level 138 MEQ/L Potassium Level 3.1 MEQ/L Chloride Level 104 MEQ/L Carbon Dioxide Level 25.6 MEQ/L Anion Gap 8 MEQ/L Blood Urea Nitrogen 21 MG/DL Creatinine 1.55 MG/DL Estimat Glomerular Filtration 46 ML/MIN Rate Random Glucose 79 MG/DL Calcium Level 9.8 MG/DL Total Bilirubin 0.3 MG/DL Aspartate Amino Transf 9 U/L (AST/SGOT) Alanine Aminotransferase 15 U/L (ALT/SGPT) Alkaline Phosphatase 51 U/L Total Protein 7.1 GM/DL Albumin 3.6 GM/DL Acetaminophen Level LESS THAN 2.0 MCG/ML Ethyl Alcohol Level 3 MG/DL [facility] Medical Decision Making Medical Screen Exam Complete: Yes Emergency Medical Condition: Yes Differential Diagnosis Depression, adjustment reaction, schizoaffective disorder, other Narrative Course Medical decision making 56 year-old woman who presents to the emergency department complaining of depression symptoms. We'll check lithium, basic labs, patient will be medically clear for psychiatric evaluation. Pascual Hawkins MD May 11, 2017 01:00
[2017-05-11] MEDS ORDERED: LITH300C2 PO (01:02)
[2017-05-11] MEDS ORDERED: traZODone HCL 100 MG TAB PO ONE (01:30)
[2017-05-11] MEDS ORDERED: ZIPRASIDONE HCL 80 MG CAP PO ONE (01:30)
[2017-05-11 05:52] VITALS: BP 149/82; PULSE 59; RESP 16; O2SAT 95
[2017-05-11 07:18] VITALS: BP 137/79; PULSE 62; RESP 18; O2SAT 95
--- NOTE | 2017-05-11 09:24 | PD ---
History of Present Illness Chief Complaint: Psychiatric Symptoms Time Seen by Provider: 09:20 Travel History International Travel<30 Days: No Contact w/Intl Traveler<30days: No Known affected area: No Legal Status Legal Status: Dyer Act Dyer Act Signed By: Kelvin Cavazos History of Present Illness: History of Present Illness 56 year-old male with history of schizoaffective disorder who presents to emergency Department under Dyer act initiated by MANE. The report alleges that the patient called [facility] to speak with a counselor and they called the police. He reported to the police that he stated that he wished to cause himself harm and that he wanted to overdose. He did not make any attempt at harming himself. Patient was monitored in main ED and he presented no behavioral concerns and no suicidality. Upon review of his EMR it is noted that he was recently hospitalized at [facility] and discharged on May 03, 2017. Upon his release he moved into a boarding which he does not liek. Patient is seen in main ED. He is alert, oriented and he is calm. He is engaging and his speech is clear and logical. There is no psychosis and no arlene. At this time he denies an suicidal or homicidal ideation and is requesting to go back to his residence. he does tell me that he does not like where he lives and " I don't like the bed because it's hard and I don't like the people" . He tells me that he has to learn where everything is and that it takes him longer to learn certain things. He admits to feeling frustrated and was feeling suicidal at the time of his call. Patient asks me to call a staff member so that he can return to his residence. I placed a call to [phone]. Unable to leave a message. Telephone call to Polina at [phone]. message left for her to call [facility]. . PFSH Past Medical History Asthma: No Blood Disorders: No Bipolar Disorder: Yes Anxiety: No Depression: Yes (psych history, and feels unhappy that he is ill) Heart Rhythm Problems: No Cancer: No Cardiac Catheterization: Yes Cardiovascular Problems: Yes High Cholesterol: No Chemotherapy: No Chest Pain: No Congestive Heart Failure: No COPD: No Diabetes: No Diminished Hearing: No Endocrine: Yes (hx pituitary surgery) Genitourinary: No Hypertension: Yes Immune Disorder: No Psychiatric: Yes Reproductive: No Myocardial Infarction: Yes Radiation Therapy: No Schizophrenia: Yes Sleep Apnea: No Thyroid Disease: No Influenza Vaccination: Yes Past Surgical History Cardiac Surgery: Yes (2 stents) 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 Dugan, for outpatient service, and has a working mental health diagnosis for Bipolar, Depression, Schizoaffective History of Inpatient Treatment: Yes (last hosp at [facility] and discharged on May 03, 2017) Guns or firearms in home: No Social History Single male. Lives in a boarding home. On disability Hx Alcohol Use: No Hx Tobacco Use: No Hx Substance Use: No Substance Use Type: Alcohol, Marijuana, Nicotine/Cigarettes, Benzos (Valium, Xanax), Synth Opiates-Pain Pills Other Substances Used: DENIED ABUSE Hx of Substance Use Treatment: No Family Psychiatric History None Allergies-Medications (Allergen,Severity, Reaction): Coded Allergies: No Known Allergies (Unverified , 05/10/17) Reported Meds & Prescriptions Reported Meds & Active Scripts Active Geodon (Ziprasidone) 80 Mg Cap 160 Mg PO 2 PO BID Klonopin (Clonazepam) 0.5 Mg Tab 0.5 Mg PO BID Adult Aspirin EC Low Strength (Aspirin) 81 Mg Tabec 81 Mg PO DAILY Reported [place] Carbonate 300 Mg Cap 300 Mg PO HS Trazodone (Trazodone HCl) 300 Mg Tab 300 Mg PO HS Hydrocortisone 5 Mg Tab 5 Mg PO BID Take with food to decrease GI upset Geodon (Ziprasidone) 80 Mg Cap 80 Mg PO BID Review of Systems Except as stated in HPI: all other systems reviewed are Neg Exam Alert: Yes [place]: Person (ox4) Mood: Calm Affect: Appropriate Speech: Clear, Logical Eye Contact: Normal Memory Intact: Comment (Not impaired) Hallucinations: Other (negative) Suicidal: Ideation (denies any) Homicidal: Ideation (denies any) Insight/Judgement Poor. Not impaired. [facility] Medical Decision Making Medical Record Reviewed: Yes Assessment/Plan 56 year-old male with history of schizoaffective disorder who presents to emergency Department under Dyer act initiated by MANE. The report alleges that the patient called [facility] to speak with a counselor and they called the police. He reported to the police that he stated that he wished to cause himself harm and that he wanted to overdose. He did not make any attempt at harming himself. At [facility] time this patietn does not meet criteria for BA ofr for inpatient treatment. He is requesting to go back to his residence. He is provided support. BA lifted. Advised manager case re need to contact [facility] to finalize disposition. Orders Complete Blood Count With Diff (05/10/17 22:24) Comprehensive Metabolic Panel (05/10/17 22:24) Psych Screen (05/10/17 22:24) Drug Screen, Random Urine (05/10/17 22:24) Alcohol (Ethanol) (05/10/17 22:24) Salicylates (Aspirin) (05/10/17 22:24) Tylenol (Acetaminophen) (05/10/17 22:24) [place] (Li) (05/11/17 00:33) Trazodone (Desyrel) (05/11/17 01:30) Ziprasidone (Geodon) (05/11/17 01:30) Diet Regular Basic (05/11/17 Breakfast) Results Vital Signs Date Time Temp Pulse Resp B/P Pulse Ox O2 Delivery O2 Flow Rate FiO2 05/11/17 07:18 62 18 137/79 95 Room Air 05/11/17 05:52 59 16 149/82 95 Room Air 05/10/17 21:39 97.6 84 17 132/78 97 05/10/17 20:56 98.3 68 16 129/83 98 Room Air Laboratory Tests Test 05/10/17 05/10/17 05/11/17 21:00 22:42 00:55 Urine Opiates Screen NEG Urine Barbiturates Screen NEG Urine Amphetamines Screen NEG Urine Benzodiazepines Screen NEG Urine Cocaine Screen NEG Urine Cannabinoids Screen NEG White Blood Count 10.9 Red Blood Count 4.75 Hemoglobin 14.0 Hematocrit 40.7 Mean Corpuscular Volume 85.7 Mean Corpuscular Hemoglobin 29.4 Mean Corpuscular Hemoglobin 34.3 Concent Red Cell Distribution Width 13.0 Platelet Count 239 Mean Platelet Volume 7.9 Neutrophils (%) (Auto) 70.4 Lymphocytes (%) (Auto) 20.8 Monocytes (%) (Auto) 6.7 Eosinophils (%) (Auto) 1.7 Basophils (%) (Auto) 0.4 Neutrophils # (Auto) 7.7 Lymphocytes # (Auto) 2.3 Monocytes # (Auto) 0.7 Eosinophils # (Auto) 0.2 Basophils # (Auto) 0.0 CBC Comment DIFF FINAL Differential Comment Sodium Level 138 Potassium Level 3.1 Chloride Level 104 Carbon Dioxide Level 25.6 Anion Gap 8 Blood Urea Nitrogen 21 Creatinine 1.55 Estimat Glomerular Filtration 46 Rate Random Glucose 79 Calcium Level 9.8 Total Bilirubin 0.3 Aspartate Amino Transf 9 (AST/SGOT) Alanine Aminotransferase 15 (ALT/SGPT) Alkaline Phosphatase 51 Total Protein 7.1 Albumin 3.6 Acetaminophen Level LESS THAN 2.0 Ethyl Alcohol Level 3 Salicylates Level LESS THAN 1.7 [place] Level 0.3 Diagnosis Primary Impression: Schizoaffective disorder Psychiatrically Cleared: Yes Med/ Other Pt Specific Info: No Change to Meds Disposition: 01 DISCHARGE HOME Condition: Stable Problem Qualifiers Primary Impression: Schizoaffective disorder Qualified Code: F25.0 - Schizoaffective disorder, bipolar type Mercedes Marsh May 11, 2017 09:24
== END 2017-05-11 15:34 | disposition home or self-care (01) ==
LOC: NED 20:39 → NEPD 05-11 15:34
DX: Z02.89 Encounter for other administrative examinations (principal); F25.0 Schizoaffective disorder, bipolar type
CPT/HCPCS: 80053; 80178; 80307; 85025; 99284

== ENCOUNTER 2017-05-15 19:56 | Inpatient (IN) | payer OTHER ==
[~2017-05-15] VITALS: Ht 167.6 cm; Wt 65.9 kg
[~2017-05-15 19:56] MED LIST changes: -CLON0.5T PO; -CORT5TAB PO; +LITH300C2 PO
[2017-05-15 20:09] VITALS: BP 171/89; PULSE 68; RESP 16; TEMP 99.1; O2SAT 98
--- NOTE | 2017-05-15 20:17 | PD ---
HPI Chief Complaint: Psychiatric Symptoms Time Seen by Provider: 20:07 Travel History International Travel<30 days: No Contact w/Intl Traveler<30days: No Traveled to known affect area: No History of Present Illness HPI 56-year-old male was Dyer acted and brought in for evaluation. Patient has history of schizoaffective disorder. Patient tried to hang himself today. Patient denies any headache. Patient denies any chest pain or shortness of breath. Patient denies abdominal pain. Patient denies any focal weakness and numbness of the extremity. Patient denies any alcohol or illicit drug abuse. PFSH Past Medical History Asthma: No Blood Disorders: No Bipolar Disorder: Yes Anxiety: No Depression: Yes (psych history, and feels unhappy that he is ill) Heart Rhythm Problems: No Cancer: No Cardiac Catheterization: Yes Cardiovascular Problems: Yes High Cholesterol: No Chemotherapy: No Chest Pain: No Congestive Heart Failure: No COPD: No Diabetes: No Diminished Hearing: No Endocrine: Yes (hx pituitary surgery) Genitourinary: No Hypertension: Yes Immune Disorder: No Psychiatric: Yes Reproductive: No Myocardial Infarction: Yes Radiation Therapy: No Schizophrenia: Yes Sleep Apnea: No Thyroid Disease: No Past Surgical History Cardiac Surgery: Yes (2 stents) 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) Social History Alcohol Use: No Tobacco Use: No Substance Use: No Allergies-Medications (Allergen,Severity, Reaction): Coded Allergies: No Known Allergies (Unverified , 05/10/17) Reported Meds & Prescriptions Reported Meds & Active Scripts Active Geodon (Ziprasidone) 80 Mg Cap 160 Mg PO 2 PO BID Klonopin (Clonazepam) 0.5 Mg Tab 0.5 Mg PO BID Adult Aspirin EC Low Strength (Aspirin) 81 Mg Tabec 81 Mg PO DAILY Reported [place] Carbonate 300 Mg Cap 300 Mg PO HS Trazodone (Trazodone HCl) 300 Mg Tab 300 Mg PO HS Hydrocortisone 5 Mg Tab 5 Mg PO BID Take with food to decrease GI upset Geodon (Ziprasidone) 80 Mg Cap 80 Mg PO BID Review of Systems General / Constitutional: No: Fever Eyes: No: Visual changes HENT: No: Headaches Cardiovascular: No: Chest Pain or Discomfort Respiratory: No: Shortness of Breath Gastrointestinal: No: Abdominal Pain Genitourinary: No: Dysuria Musculoskeletal: No: Pain Skin: No Rash Neurologic: No: Weakness Psychiatric: No: Depression Endocrine: No: Polydipsia Hematologic/Lymphatic: No: Easy Bruising Physical Exam Narrative GENERAL: Well-nourished, well-developed patient. SKIN: Focused skin assessment warm/dry. HEAD: Normocephalic. EYES: No scleral icterus. No injection or drainage. NECK: Supple, trachea midline. No JVD or lymphadenopathy. CARDIOVASCULAR: Regular rate and rhythm without murmurs, gallops, or rubs. RESPIRATORY: Breath sounds equal bilaterally. No accessory muscle use. GASTROINTESTINAL: Abdomen soft, non-tender, nondistended. MUSCULOSKELETAL: No cyanosis, or edema. BACK: Nontender without obvious deformity. No CVA tenderness. Neurologic exam: Patient's awake and alert oriented to place and person. Patient moves all extremity well. No obvious focal neurological deficit. Data Data Last Documented VS Vital Signs Date Time Temp Pulse Resp B/P Pulse Ox O2 Delivery O2 Flow Rate FiO2 05/15/17 20:09 99.1 68 16 171/89 98 Orders Complete Blood Count With Diff (05/15/17 20:11) Comprehensive Metabolic Panel (05/15/17 20:11) Psych Screen (05/15/17 20:11) Drug Screen, Random Urine (05/15/17 20:11) Haloperidol Inj (Haldol Inj) (05/15/17 20:30) Lorazepam Inj (Ativan Inj) (05/15/17 20:30) Lorazepam Inj (Ativan Inj) (05/15/17 20:45) Labs Laboratory Tests Test 05/15/17 20:40 White Blood Count 13.3 TH/MM3 Red Blood Count 5.09 MIL/MM3 Hemoglobin 14.9 GM/DL Hematocrit 43.5 % Mean Corpuscular Volume 85.6 FL Mean Corpuscular Hemoglobin 29.2 PG Mean Corpuscular Hemoglobin 34.2 % Concent Red Cell Distribution Width 13.0 % Platelet Count 318 TH/MM3 Mean Platelet Volume 8.1 FL Neutrophils (%) (Auto) 72.4 % Lymphocytes (%) (Auto) 19.0 % Monocytes (%) (Auto) 6.3 % Eosinophils (%) (Auto) 1.7 % Basophils (%) (Auto) 0.6 % Neutrophils # (Auto) 9.6 TH/MM3 Lymphocytes # (Auto) 2.5 TH/MM3 Monocytes # (Auto) 0.8 TH/MM3 Eosinophils # (Auto) 0.2 TH/MM3 Basophils # (Auto) 0.1 TH/MM3 CBC Comment DIFF FINAL Differential Comment Sodium Level 138 MEQ/L Potassium Level 3.8 MEQ/L Chloride Level 104 MEQ/L Carbon Dioxide Level 25.0 MEQ/L Anion Gap 9 MEQ/L Blood Urea Nitrogen 24 MG/DL Creatinine 1.84 MG/DL Estimat Glomerular Filtration 38 ML/MIN Rate Random Glucose 85 MG/DL Calcium Level 10.8 MG/DL Total Bilirubin 0.6 MG/DL Aspartate Amino Transf 21 U/L (AST/SGOT) Alanine Aminotransferase 17 U/L (ALT/SGPT) Alkaline Phosphatase 49 U/L Total Protein 7.2 GM/DL Albumin 3.9 GM/DL [facility] Medical Decision Making Medical Screen Exam Complete: Yes Emergency Medical Condition: Yes Medical Record Reviewed: Yes Interpretation(s) 22:43 PM. CBC WBC 13.3. 72 neutrophil. BUN 24. Creatinine 1.84. GFR 38. Calcium 10.8. Differential Diagnosis Differential diagnosis including psychosis, schizophrenia, depression, suicidal. Narrative Course 56-year-old male with history of schizoaffective disorder and attempted suicide today. Patient was Dyer acted and brought in for evaluation. 22:44 PM. Patient's is medically cleared for psychiatric evaluation and disposition. Dru Hendrickson MD May 15, 2017 20:17
[2017-05-15] MEDS ORDERED: LORazepam 2 MG/ML VIAL IM ONE (20:30)
[2017-05-15] MEDS ORDERED: HALOPERIDOL LACTATE 5 MG/ML AMP IM ONE (20:30)
[2017-05-15] MEDS ORDERED: LORazepam 2 MG/ML VIAL IV PUSH ONE ×2 (20:45→23:15)
[2017-05-15 21:08] LABS: AUTOMATED NEUTROPHIL # 9.6 TH/MM3 (1.8-7.7); BASOPHIL # 0.1 TH/MM3 (0-0.2); BASOPHIL % 0.6 % (0.0-2.0); EOSINOPHIL # 0.2 TH/MM3 (0-0.4); EOSINOPHIL % 1.7 % (0.0-4.0); HEMATOCRIT 43.5 % (39.0-51.0); HEMO FLAGS DIFF FINAL; LYMPHOCYTE # 2.5 TH/MM3 (1.0-4.8); MEAN CELL VOLUME 85.6 FL (80.0-100.0); MEAN CORPUSCULAR HEMOGLOBIN 29.2 PG (27.0-34.0); MEAN CORPUSCULAR HGB CONC 34.2 % (32.0-36.0); MONO % 6.3 % (0.0-8.0); NEUT % 72.4 % (16.0-70.0); PLATELET COUNT 318 TH/MM3 (150-450); RED BLOOD COUNT 5.09 MIL/MM3 (4.50-5.90); WHITE BLOOD COUNT 13.3 TH/MM3 (4.0-11.0)
[2017-05-15 21:37] LABS: ALKALINE PHOSPHATASE 49 U/L (45-117); ALT (GPT) 17 U/L (12-78); TOTAL BILIRUBIN ADULT 0.6 MG/DL (0.2-1.0)
[2017-05-15 21:49] LABS: ANION GAP 9 MEQ/L (5-15); AST (GOT) 21 U/L (15-37); BLOOD UREA NITROGEN 24 MG/DL (7-18); CHLORIDE 104 MEQ/L (98-107); GLOMERULAR FILTRATION RATE 38 ML/MIN (>89); POTASSIUM 3.8 MEQ/L (3.5-5.1); SODIUM (NA) 138 MEQ/L (136-145)
[2017-05-15 23:45] VITALS: BP 167/84; PULSE 67; RESP 18
[2017-05-15 23:59] LABS: AMPHETAMINE, URINE NEG (NEG); BARBITURATES, URINE NEG (NEG); COCAINE, URINE NEG (NEG)
[2017-05-16 07:04] VITALS: BP 119/70; PULSE 56; RESP 18; O2SAT 97
[2017-05-16] MEDS ORDERED: LORazepam 1 MG TAB PO PRN (08:45)
[2017-05-16] MEDS ORDERED: LORazepam 0.5 MG TAB PO PRN (08:45)
[2017-05-16] MEDS ORDERED: LORazepam 2 MG/ML VIAL IM PRN ×2 (08:45)
[2017-05-16] MEDS ORDERED: MAGNESIUM HYDROXIDE SUSP 30 ML CUP PO PRN (08:45)
[2017-05-16] MEDS ORDERED: ALUMINUM/MAGNESIUM/SIMETH 30 ML CUP PO PRN (08:45)
[2017-05-16] MEDS ORDERED: ACETAMINOPHEN 325 MG TAB PO PRN (08:45)
[2017-05-16] MEDS: ZIPRASIDONE HCL 80 MG CAP PO SCH ×2 (09:00→20:45)
[2017-05-16] MEDS: ASPIRIN EC 81 MG TABEC PO SCH (09:00)
[2017-05-16] MEDS: clonazePAM 0.5 MG TAB PO SCH ×2 (09:00→20:45)
[2017-05-16] MEDS: NICOTINE 21 MG/24 HR PATCH T-DERMAL SCH (09:00)
--- NOTE | 2017-05-16 09:02 | HHI.HP ---
Provisional Diagnosis Admission Date [place] I. Schizoaffective disorder, depressive type [place] II. Deferred [place] III. Hypertension, hypothyroidism Certification of Person's Competence To Provide Express and Informed Consent I have personally examined Sagar Maddox , a person being served at [facility] on, May 16, 2017 08:45. Express and informed consent means consent voluntarily given in writing, by a competent person, after sufficient explanation and disclosure of the subject matter involved to enable the person to make a knowing and willful decision without any element of force, fraud, deceit, duress, or other form of constraint or coercion. This person is 18 years of age or older, is not now known to be incompetent to consent to treatment with a guardian advocate, and does not have a health care surrogate or proxy currently making medical treatment decisions. I have found this person to be one of the following: [X] Competent to provide express and informed consent, as defined above, for voluntary admission to this facility and is competent to provide express and informed consent for treatment. He/she has the consistent capacity to make well reasoned, willful, and knowing decisions concerning his or her medical or mental health treatment. The person fully and consistently understands the purpose of the admission for examination/placement and is fully capable of personally exercising all rights assured [place] Incompetent to provide express and informed consent to voluntary admission, and this is incompetent to provide express and informed consent to treatment. The person must be transferred to involuntary status and a petition for a guardian advocate filed with the Circuit Court. [] Refusing to provide express and informed consent to voluntary admission but is competent to provide express and informed consent for treatment. The person must be discharged or transferred to involuntary status. Form shall be completed within 24 hours of a person's arrival at the receiving facility and filed in the clinical record of each person: 1. Admitted on a voluntary basis 2. Permitted to provide express and informed consent to his/her own treatment 3. Allowed to transfer from involuntary to voluntary status 4. Prior to permitting a person to consent to his or her own treatment after having been previously found incompetent to consent to treatment. History of Present Illness Capacity: Has Capacity HPI The patient is a 56-year-old man, domiciled with his mother, unemployed, retired, , , with psychiatric history of schizoaffective disorder, previous psychiatric hospitalizations, last hospitalization here at [facility], he was released about 2 weeks ago, suicide attempts, establish outpatient care with Dr. Randle, he is on Geodon 80 mg twice a day, lithium 1200 mg Trazodone 300 mf hs, medical history of hypertension, hypothyroidism, who presents to the emergency department under Dyer act initiated by law enforcement because patient was found allegedly walking to a bridge to jump. Today a psychiatric evaluation patient is on his bed, he is upset, very irritable and oppositional. Patient says that he is upset because his mother doesn't want him back to his house, "now I am homeless, I don't know what to do, my plan is to jump off a bridge". He reports depressive symptoms, sadness, anxiety, persistent suicidal ideation with a plan of jumping off a bridge or hanging himself. Patient is able to contract for safety in the unit. Patient is oriented 3, no attention deficit, no fluctuation of consciousness present. Patient denies the use of drugs or illicit drugs. He reports compliant with his medications and psychiatric follow-up. Patient is a little tremulous, he is stays that this is how his a baseline, but lithium level will be ordered. Review of Systems Constitutional: DENIES: Diaphoretic episodes, Fatigue, Fever, Weight gain, Weight loss, Chills, Dizziness, Change in appetite, Night Sweats Endocrine: DENIES: Heat/cold intolerance, Polydipsia, Polyuria, Polyphagia Eyes: DENIES: Blurred vision, Diplopia, Eye inflammation, Eye pain, Vision loss , Photosensitivity, Double Vision Respiratory: DENIES: Apneas, Cough, Snoring, Wheezing, Hemoptysis, Sputum production, Shortness of breath Cardiovascular: DENIES: Chest pain, Palpitations, Syncope, Dyspnea on Exertion , PND, Lower Extremity Edema, Orthopnea, Claudication Gastrointestinal: DENIES: Abdominal pain, Black stools, Bloody stools, Constipation, Diarrhea, Nausea, Vomiting, Difficulty Swallowing, Anorexia Musculoskeletal: DENIES: Joint pain, Muscle aches, Stiffness, Joint Swelling, Back pain, Neck pain Integumentary: DENIES: Abnormal pigmentation, Nail changes, Pruritus, Rash Hematologic/lymphatic: DENIES: Bruising, Lymphadenopathy Immunologic/allergic: DENIES: Eczema, Urticaria Neurologic: COMPLAINS OF: Tremor, DENIES: Abnormal gait, Headache, Localized weakness, Paresthesias, Seizures, Speech Problems, Poor Balance Psychiatric: DENIES: Anxiety, Confusion, Mood changes, Depression, Hallucinations, Agitation, Suicidal Ideation, Homicidal Ideation, Delusions Past Psych History Violence risk - self (6 mos) Increased risk to self Substance Abuse History Drugs/Alcohol past 12 months Patient denies the use of drugs and alcohol Past Family Social History Coded Allergies: No Known Allergies (Unverified , 05/10/17) Active Scripts Ziprasidone (Geodon)80 Mg [id number] Mg PO 2 po bid #120 CAP Ref 0 Prov:Jeff Tyson MD 04/30/17 Clonazepam (Klonopin)0.5 Mg Tab0.5 Mg PO BID #60 TAB Ref 0 Prov:Jeff Tyson MD 04/30/[address] (Adult Aspirin EC Low Strength)81 Mg [id number] Mg PO DAILY #30 TAB Ref 0 Prov:Jeff Tyson MD 04/30/17 Reported Medications [place] Carbonate 300 Mg [id number] Mg PO HS Ref 0 05/11/17 Trazodone 300 Mg [id number] Mg PO HS #30 TAB Ref 0 03/14/17 Hydrocortisone 5 Mg Tab5 Mg PO BID #60 TAB Ref 0 Take with food to decrease GI upset 02/22/17 Ziprasidone (Geodon)80 Mg Cap80 Mg PO BID #60 CAP Ref 0 09/30/16 Discontinued Reported Medications Clonazepam 0.5 Mg Tab0.5 Mg PO HS #60 TAB Ref 0 03/14/17 Discontinued Scripts Trazodone 300 Mg [id number] Mg PO HS #30 TAB Ref 0 Prov:Jeff Tyson MD 04/30/17 Hydrocortisone (Cortef)5 Mg Tab5 Mg PO BID #60 TAB Ref 0 Take with food to decrease GI upset Prov:Jeff Tyson MD 04/30/17 Current Medications Medications (Trade) Dose Ordered Sig/Cris Route Start Time Stop Time Status Last Admin (Ecotrin Ec) 81 mg DAILY PO 05/16/17 09:00 UNV (KlonoPIN) 0.5 mg BID PO 05/16/17 09:00 UNV ([place] Carbonate) 300 mg HS PO 05/16/17 21:00 UNV (Desyrel) 300 mg HS PO 05/16/17 21:00 UNV (Geodon) 80 mg BID PO 05/16/17 09:00 UNV Family History No family psychiatric history Social History Patient was born and raised in [facility], he lives in [place] his mother , his divorce, and has 2 kids, retired, he is a , his highest level of education is 3th grade. Patient's Strengths (min. 2) Outpatient psychiatric care Physical Exam Patient with mild bilateral hand tremor, hypoactive, with marked psychomotor retardation, no skin abnormalities, no pupillaries changes. Vital Signs Vital Signs Date Time Temp Pulse Resp B/P Pulse Ox O2 Delivery O2 Flow Rate FiO2 05/16/17 07:04 56 18 119/70 97 05/15/17 20:09 99.1 Lab Results Labs Laboratory Tests Test 05/15/17 20:40 White Blood Count 13.3 TH/MM3 Red Blood Count 5.09 MIL/MM3 Hemoglobin 14.9 GM/DL Hematocrit 43.5 % Mean Corpuscular Volume 85.6 FL Mean Corpuscular Hemoglobin 29.2 PG Mean Corpuscular Hemoglobin 34.2 % Concent Red Cell Distribution Width 13.0 % Platelet Count 318 TH/MM3 Mean Platelet Volume 8.1 FL Neutrophils (%) (Auto) 72.4 % Lymphocytes (%) (Auto) 19.0 % Monocytes (%) (Auto) 6.3 % Eosinophils (%) (Auto) 1.7 % Basophils (%) (Auto) 0.6 % Neutrophils # (Auto) 9.6 TH/MM3 Lymphocytes # (Auto) 2.5 TH/MM3 Monocytes # (Auto) 0.8 TH/MM3 Eosinophils # (Auto) 0.2 TH/MM3 Basophils # (Auto) 0.1 TH/MM3 CBC Comment DIFF FINAL Differential Comment Sodium Level 138 MEQ/L Potassium Level 3.8 MEQ/L Chloride Level 104 MEQ/L Carbon Dioxide Level 25.0 MEQ/L Anion Gap 9 MEQ/L Blood Urea Nitrogen 24 MG/DL Creatinine 1.84 MG/DL Estimat Glomerular Filtration 38 ML/MIN Rate Random Glucose 85 MG/DL Calcium Level 10.8 MG/DL Total Bilirubin 0.6 MG/DL Aspartate Amino Transf 21 U/L (AST/SGOT) Alanine Aminotransferase 17 U/L (ALT/SGPT) Alkaline Phosphatase 49 U/L Total Protein 7.2 GM/DL Albumin 3.9 GM/DL Mental Status Examination Appearance man, poor hygiene, disheveled, superficially cooperative, Oppositional Speech: Hesitant, Slow Orientation: x3 Memory: Unremarkable Thought Process: Logical, Goal Directed, Linear Thought Content: Unremarkable Language Is spontaneous and fluent Fund of Knowledge Adequate for level of education Hallucination Type: None Attention and Concentration: Good Suicidal Ideation: Yes Previous Suicide Attempts: Yes Homicidal Ideation: No Previous Homicide Attempts: No Judgment: WNL, Poor Affect: Sad Mood: Angry Motor Activity: Normal gait Assessment & Plan Problem List: (1) Schizoaffective disorder Assessment & Plan: The patient is a 56-year-old man with psychiatric history of schizoaffective disorder, previous psychiatric hospitalizations, last hospitalization here at [facility], he was released about 2 weeks ago, multiple suicide attempts, established outpatient care with Dr. Randle , he is on Geodon 80 mg twice a day, lithium 1200 mg Trazodone 300 mf hs, medical history of hypertension, hypothyroidism, who presents to the emergency department under Dyer act initiated by law enforcement because patient was found allegedly walking to a bridge to jump. On psychiatric evaluation patient reports depression and suicidal ideation with with plan of jumping off a bridge. Patient reports persistent suicidal ideation, anhedonia, hopelessness, helplessness, decreased level of functioning, difficult self administrating medications. Patient has an increased risk of danger to self. Patient is agreeing to be admitted in voluntary basis. Please, transfer patient to 2500 unit. Extensive support, motivation and psychoeducation provided. Will restart Geodon 80 mg twice a day and trazodone 300 hs, lithium 300 mg twice a day. skip pit worker intervention for psychosocial assessment, collateral information, individual and group therapy. ICD Code: F25.9 Assessment & Plan Estimated LOS: days Problem Qualifiers (1) Schizoaffective disorder: Qualified Code: F25.1 - Schizoaffective disorder, depressive type Braden Shah MD May 16, 2017 09:02
[2017-05-16 11:04] VITALS: BP 153/87; PULSE 66; RESP 18; O2SAT 96
[2017-05-16 18:47] VITALS: BP 155/85; PULSE 73; RESP 18; TEMP 97.9; O2SAT 98
[2017-05-16] MEDS ORDERED: LITHIUM CARBONATE 300 MG CAP PO SCH (21:00)
[2017-05-16] MEDS ORDERED: traZODone HCL 100 MG TAB PO SCH (21:00)
[2017-05-17 05:40] VITALS: BP 126/64; PULSE 62; RESP 18; TEMP 98.1
[2017-05-17] MEDS: ASPIRIN EC 81 MG TABEC PO SCH (08:56)
[2017-05-17] MEDS: ZIPRASIDONE HCL 80 MG CAP PO SCH (08:57)
[2017-05-17] MEDS: clonazePAM 0.5 MG TAB PO SCH (08:57)
[2017-05-17] MEDS: NICOTINE 21 MG/24 HR PATCH T-DERMAL SCH (08:57)
[2017-05-17] MEDS ORDERED: PNEUMOCOCCAL POLYVALENT INJ 25 MCG/0.5 ML SYR IM ONE (09:00)
[2017-05-17] MEDS ORDERED: LITH300C2 PO (09:38)
[2017-05-17] MEDS ORDERED: GEOD80CA PO (09:38)
--- NOTE | 2017-05-17 09:42 | HHI.DS ---
Psychiatry Discharge Summary Inpatient Psychiatric care?: Yes Advance Directive: No Reason Not Provided: refused Mental Health AdvanceDirective: No Health Care Proxy: No Admission Admission Date May 16, 2017 at 08:44 Admission Diagnosis: (1) Schizoaffective disorder ICD Code: F25.9 Brief History The patient is a 56-year-old man, domiciled with his mother, unemployed, retired, , , with psychiatric history of schizoaffective disorder, previous psychiatric hospitalizations, last hospitalization here at [facility], he was released about 2 weeks ago, suicide attempts, establish outpatient care with Dr. Randle, he is on Geodon 80 mg twice a day, lithium 1200 mg Trazodone 300 mf hs, medical history of hypertension, hypothyroidism, who presents to the emergency department under [place] act initiated by law enforcement because patient was found allegedly walking to a bridge to jump. Today a psychiatric evaluation patient is on his bed, he is upset, very irritable and oppositional. Patient says that he is upset because his mother doesn't want him back to his house, "now I am homeless, I don't know what to do, my plan is to jump off a bridge". He reports depressive symptoms, sadness, anxiety, persistent suicidal ideation with a plan of jumping off a bridge or hanging himself. Patient is able to contract for safety in the unit. Patient is oriented 3, no attention deficit, no fluctuation of consciousness present. Patient denies the use of drugs or illicit drugs. He reports compliant with his medications and psychiatric follow-up. Patient is a little tremulous, he is stays that this is how his a baseline, but lithium level will be ordered. Tobacco Use In Past 30 Days: No Tobacco Past 30 Days Alcohol Use: Never Hospital Course He was admitted yesterday as can be noted in the documentation from H&P. Once the patient arrived to the psychiatric unit he immediately signed a letter of release. Patient has an extensive history of psychiatric admissions, poor compliant with medications, also use in the hospital for his account purposes. This time in discharge and the patient because in my opinion he does not benefit of psychiatric admissions. He can continue his psychiatric care as an outpatient, will write a prescription psychotropics. At the moment of discharge the patient reports good mood, denies suicidal ideation, denies homicidal ideation, denies visual and auditory hallucinations. Patient clarifies that he is been chronically suicidal since the age of 86 years old, but he had never acted out his thoughts. Results Blood Pressure 126 / 64 Vital Signs Date Time Temp Pulse Resp B/P Pulse Ox O2 Delivery O2 Flow Rate FiO2 05/17/17 05:40 98.1 62 18 126/64 05/16/17 18:47 98 05/16/17 11:04 Room Air Laboratory Tests Test 05/15/17 20:40 White Blood Count 13.3 TH/MM3 (4.0-11.0) Neutrophils (%) (Auto) 72.4 % (16.0-70.0) Neutrophils # (Auto) 9.6 TH/MM3 (1.8-7.7) Blood Urea Nitrogen 24 MG/DL (7-18) Creatinine 1.84 MG/DL (0.60-1.30) Estimat Glomerular Filtration 38 ML/MIN (>89) Rate Calcium Level 10.8 MG/DL (8.5-10.1) Laboratory Results Test 05/16/17 10:35 [place] Level 0.8 MEQ/L (0.5-1.5) Summary of Procedures No procedures done Pending results at discharge: No Medications # of Antipsychotic meds at D/C: 1 Approp Antipsych med options 1 - Minimum of three failed multiple trials of monotherapy. 2 - Documented plan to taper to monotherapy due to previous use of multiple meds OR cross-taper in progress at D/C. 3 - Documentation of augmentation of Clozapine. 4 - Justification other than those listed in allowable values 1-3, document here : Discharge Discharge Date: May 17, 2017 Discharge Diagnosis: (1) Schizoaffective disorder Diagnosis: Principal ICD Code: F25.9 Pt Condition on Discharge: Stable Discharge Disposition: ACLF/AMNA Discharge Instructions Diet Instructions: Heart Healthy Diet Activities you can perform: Regular-No Restrictions, Weight Bearing as Keith Scheduled Appointment: Discharge Time > 30 minutes Discharge/Advance Care Plan Health Problems: (1) Schizoaffective disorder Goals to promote your health * To prevent worsening of your condition and complications * To maintain your health at the optimal level Directions to meet your goals Take your medications as prescribed Follow your dietary instruction Follow activity as directed Keep your appointments as scheduled Take your immunizations and boosters as scheduled If your symptoms worsen call your PCP, if no PCP go to Urgent Care Center or Emergency Room For 26/04 questions related to your inpatient stay or results of tests pending at discharge, please contact Dr. Braden Shah at Smoking is Dangerous to Your Health. Avoid second hand smoking Problem Qualifiers (1) Schizoaffective disorder: Qualified Code: F25.1 - Schizoaffective disorder, depressive type Braden Shah MD May 17, 2017 09:42
[2017-05-17] MEDS ORDERED: INFLUENZA VIRUS VACCINE (QUADRIVALENT) 0.5 ML SYR IM ONE (10:00)
[2017-05-17 12:36] LABS: ANION GAP 9 MEQ/L (5-15); BICARBONATE 29.5 MEQ/L (21.0-32.0); BLOOD UREA NITROGEN 17 MG/DL (7-18); CHLORIDE 103 MEQ/L (98-107); GLOMERULAR FILTRATION RATE 43 ML/MIN (>89); POTASSIUM 3.4 MEQ/L (3.5-5.1); SODIUM (NA) 141 MEQ/L (136-145)
[2017-05-17 12:40] LABS: HDL CHOLESTEROL 57.9 MG/DL (40.0-60.0); LDL CHOLESTEROL 110 MG/DL (0-99)
[2017-05-17 16:49] LABS: HEMOGLOBIN A1a 0.9 %; HEMOGLOBIN A1b 1.6 %; HEMOGLOBIN Ao 86.2 %; HEMOGLOBIN LA1C 2.1 %; HEMOGLOBIN P3 3.8 %
== END 2017-05-17 12:35 | DRG 885 ==
LOC: NEPD 19:56 → NEDA 05-16 08:44 → H250 05-16 11:15
PROVIDERS: ADMIT Psychiatry & Neurology Psychiatry; ATTEND Psychiatry & Neurology Psychiatry
DX: F25.1 Schizoaffective disorder, depressive type (principal); R45.851 Suicidal ideations; Z91.14 Patient's other noncompliance with medication regimen; I10 Essential (primary) hypertension; E03.9 Hypothyroidism, unspecified; R25.1 Tremor, unspecified; I25.2 Old myocardial infarction; Z91.5 Personal history of self-harm; Z23 Encounter for immunization; Z59.0 Homelessness
CPT/HCPCS: 80048; 80053; 80061; 80178; 80307; 83036; 85025; 96372; 96374; 96376; J1630; J2060

== ENCOUNTER 2017-10-23 22:45 | Inpatient (IN) | payer MEDICARE, OTHER ==
[2017-10-23] MEDS: LORazepam 1 MG TAB PO (23:13)
[2017-10-23] MEDS ORDERED: LORazepam 2 MG/ML VIAL IM (23:15)
[2017-10-23] MEDS ORDERED: ALUMINUM/MAGNESIUM/SIMETH 30 ML CUP PO (23:15)
[2017-10-23] MEDS ORDERED: MAGNESIUM HYDROXIDE SUSP 30 ML CUP PO (23:15)
[2017-10-24 09:06] LABS: ANION GAP 8 MEQ/L (5-15); BICARBONATE 24.7 MEQ/L (21.0-32.0); BLOOD UREA NITROGEN 28 MG/DL (7-18); CHLORIDE 109 MEQ/L (98-107); CREATININE 1.12 MG/DL (0.60-1.30); GLOMERULAR FILTRATION RATE 67 ML/MIN (>89); GLUCOSE,RANDOM 88 MG/DL (74-106); POTASSIUM 3.3 MEQ/L (3.5-5.1); SODIUM (NA) 142 MEQ/L (136-145)
[2017-10-24 09:07] LABS: CHOLESTEROL 137 MG/DL (120-200)
[2017-10-24 09:10] LABS: CHOLESTEROL/ HDL RATIO 3.35 RATIO; HDL CHOLESTEROL 40.8 MG/DL (40.0-60.0); LDL CHOLESTEROL 62 MG/DL (0-99); TRIGLYCERIDES 173 MG/DL (42-150)
[2017-10-24 12:38] LABS: HEMOGLOBIN A1C 5.2 % (4.3-6.0); HEMOGLOBIN A1b 1.9 %; HEMOGLOBIN Ao 85.5 %; HEMOGLOBIN LA1C 1.9 %
[2017-10-24] MEDS: ZIPRASIDONE HCL 80 MG CAP PO ×2 (13:31→21:08)
[2017-10-24] MEDS: LITHIUM CARBONATE 300 MG TAB PO ×2 (13:31→21:08)
[2017-10-24] MEDS: POTASSIUM CHLORIDE 20 MEQ CONTROLLED RELEASE TAB PO (14:45)
[2017-10-24] MEDS: LORazepam 1 MG TAB PO (21:08)
[2017-10-24] MEDS: ACETAMINOPHEN 325 MG TAB PO (22:05)
[2017-10-24 22:12] LABS: LITHIUM 0.3 MEQ/L (0.5-1.5)
[2017-10-24 22:17] LABS: POTASSIUM 3.6 MEQ/L (3.5-5.1)
[2017-10-24 22:18] LABS: MAGNESIUM 2.2 MG/DL (1.5-2.5)
[2017-10-25] MEDS: LITHIUM CARBONATE 300 MG TAB PO ×2 (08:02→20:26)
[2017-10-25] MEDS: ZIPRASIDONE HCL 80 MG CAP PO ×2 (08:02→20:26)
[2017-10-25] MEDS: LORazepam 1 MG TAB PO (19:56)
[2017-10-26] MEDS: ACETAMINOPHEN 325 MG TAB PO ×3 (00:25→22:20)
[2017-10-26] MEDS: LORazepam 1 MG TAB PO ×2 (08:45→15:48)
[2017-10-26] MEDS: LITHIUM CARBONATE 300 MG TAB PO ×2 (09:00→21:00)
[2017-10-26] MEDS: ATENOLOL 50 MG TAB PO ×2 (09:00→21:00)
[2017-10-26] MEDS: ZIPRASIDONE HCL 80 MG CAP PO ×2 (09:00→20:59)
[2017-10-26] MEDS: predniSONE 20 MG TAB PO (15:15)
[2017-10-26] MEDS ORDERED: PILL SPLITTER OTHER (15:30)
[2017-10-26] MEDS: diphenhydrAMINE HCL 25 MG CAP PO (15:48)
[2017-10-26] MEDS: FAMOTIDINE 20 MG TAB PO (20:59)
[2017-10-26] MEDS: CALAMINE LOTION 180 APPLIC/180 ML BTL TOPICAL (21:00)
[2017-10-26] MEDS: traZODone HCL 50 MG TAB PO (21:01)
[2017-10-27] MEDS: ACETAMINOPHEN 325 MG TAB PO (02:28)
[2017-10-27] MEDS: diphenhydrAMINE HCL 25 MG CAP PO (02:28)
[2017-10-27] MEDS: LITHIUM CARBONATE 300 MG TAB PO (09:00)
[2017-10-27] MEDS: FAMOTIDINE 20 MG TAB PO (09:18)
[2017-10-27] MEDS: ZIPRASIDONE HCL 80 MG CAP PO (09:19)
[2017-10-27] MEDS: ATENOLOL 50 MG TAB PO (09:19)
[2017-10-27] MEDS: predniSONE 20 MG TAB PO (09:31)
[2017-10-27 12:46] LABS: LITHIUM 0.5 MEQ/L (0.5-1.5)
[2017-10-29] MEDS ORDERED: predniSONE 20 MG TAB PO (15:00)
[2017-11-01] MEDS ORDERED: predniSONE 20 MG TAB PO (15:00)
[2017-11-04] MEDS ORDERED: predniSONE 10 MG TAB PO (15:00)
== END 2017-10-27 13:55 | DRG 885 ==
LOC: H270 22:45
DX: F25.9 Schizoaffective disorder, unspecified (principal); I10 Essential (primary) hypertension; E03.9 Hypothyroidism, unspecified; I25.10 Atherosclerotic heart disease of native coronary artery without angina pectoris; L27.0 Generalized skin eruption due to drugs and medicaments taken internally; R45.4 Irritability and anger; G47.9 Sleep disorder, unspecified; Z87.01 Personal history of pneumonia (recurrent)
CPT/HCPCS: 80048; 80061; 80178; 83036; 83735; 84132

== ENCOUNTER 2018-01-05 21:45 | Inpatient (IN) | payer MEDICARE, OTHER ==
[~2018-01-05] VITALS: Ht 170.2 cm; Wt 64.1 kg
[~2018-01-05 21:45] MED LIST changes: -ASPI-99 PO; +ASPI1TAB56 PO; +ATEN50TA PO; -CLON.5 PO; +FAMO20TA2 PO; -HYDR5TAB64 PO; -LITH300C2 PO; +LITH300T3 PO; +PRED10 PO; +PRED20 PO; -TRAZ300T2 PO; +TRAZ50TA12 PO
[2018-01-05 22:16] VITALS: BP 148/95; PULSE 96; RESP 30; TEMP 100.2; O2SAT 98
--- NOTE | 2018-01-05 22:28 | PD ---
HPI Chief Complaint: Psychiatric Symptoms Time Seen by Provider: 22:26 Travel History International Travel<30 days: No Contact w/Intl Traveler<30days: No Traveled to known affect area: No History of Present Illness HPI 57-year-old male history of bipolar schizophrenia presents emergency department under [place] act for psychiatric evaluation. Patient was driving the wrong way on a road. When the police stopped him, he seemed to not make sense and he was tremulous. Patient has tremors chronically. He states that he has been unable to take his medicine this evening and he usually takes it later. He denies suicidal homicidal ideations. He denies any acute medical needs at this time. PFSH Past Medical History Asthma: No Blood Disorders: No Bipolar Disorder: Yes Anxiety: No Depression: Yes (psych history, and feels unhappy that he is ill) Heart Rhythm Problems: No Cancer: No Cardiac Catheterization: Yes Cardiovascular Problems: Yes High Cholesterol: No Chemotherapy: No Chest Pain: No Congestive Heart Failure: No COPD: No Diabetes: No Diminished Hearing: No Endocrine: Yes (hx pituitary surgery) Genitourinary: No Headaches: No Hypertension: Yes Immune Disorder: No Musculoskeletal: No Neurologic: Yes (hx brain surgery) Psychiatric: Yes (Hx of treatment for Schizophrenia per pt) Reproductive: No Respiratory: Yes (recent tx for RLL pneumonia ) Immunizations Current: Yes Myocardial Infarction: Yes Radiation Therapy: No Schizophrenia: Yes Sleep Apnea: No Thyroid Disease: No Past Surgical History Abdominal Surgery: No AICD: No Arteriovenous Shunt: No Cardiac Surgery: Yes (2 stents) Ear Surgery: No Endocrine Surgery: No Eye Surgery: No Genitourinary Surgery: No Gynecologic Surgery: No Insulin Pump: No Joint Replacement: No 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) Oral Surgery: No Pacemaker: No Thoracic Surgery: No Other Surgery: Yes Social History Alcohol Use: No Tobacco Use: No Substance Use: No Allergies-Medications (Allergen,Severity, Reaction): Coded Allergies: No Known Allergies (Unverified , 05/10/17) Reported Meds & Prescriptions Reported Meds & Active Scripts Active [place] Carbonate 300 Mg Tab 300 Mg PO Q12HR 30 Days Trazodone (Trazodone HCl) 50 Mg Tab 50 Mg PO HS 30 Days Atenolol 50 Mg Tab 50 Mg PO BID 30 Days Geodon (Ziprasidone) 80 Mg Cap 80 Mg PO BID 30 Days Adult Aspirin EC Low Strength (Aspirin) 81 Mg Tabec 81 Mg PO DAILY Review of Systems Except as stated in HPI: all other systems reviewed are Neg Physical Exam Narrative GENERAL: 57-year-old male, well-nourished, with bizarre affect, but in no acute distress. Patient is tremulous. SKIN: Focused skin assessment warm/dry. HEAD: Atraumatic. Normocephalic. EYES: Pupils equal and round. No scleral icterus. No injection or drainage. ENT: No nasal bleeding or discharge. Mucous membranes pink and moist. NECK: Trachea midline. No JVD. CARDIOVASCULAR: Elevated rate and rhythm. No murmur appreciated. RESPIRATORY: No accessory muscle use. Clear to auscultation. Breath sounds equal bilaterally. GASTROINTESTINAL: Abdomen soft, non-tender, nondistended. Hepatic and splenic margins not palpable. MUSCULOSKELETAL: No obvious deformities. No clubbing. No cyanosis. No edema. NEUROLOGICAL: Awake and alert. No obvious cranial nerve deficits. Motor grossly within normal limits. Normal but slightly difficult to understand speech. Data Data Last Documented VS Vital Signs Date Time Temp Pulse Resp B/P (MAP) Pulse Ox O2 Delivery O2 Flow Rate FiO2 01/05/18 23:03 98.9 92 20 99 Room Air 01/05/18 22:16 148/95 (112) Orders Orders Complete Blood Count With Diff (01/05/18 22:26) Thyroid Stimulating Hormone (01/05/18 22:26) Basic Metabolic Panel (Bmp) (01/05/18 22:26) Psych Screen (01/05/18 22:26) Drug Screen, Random Urine (01/05/18 22:26) Alcohol (Ethanol) (01/05/18 22:26) Iv Access Insert/Monitor (01/05/18 23:48) Sodium Chlor 0.9% 1000 Ml Inj (Ns 1000 M (01/06/18 00:00) Lorazepam Inj (Ativan Inj) (01/06/18 00:00) [place] (Li) (01/05/18 23:48) Lorazepam Inj (Ativan Inj) (01/06/18 02:45) Labs Laboratory Tests Test 01/05/18 22:50 01/05/18 23:55 Blood Urea Nitrogen 17 MG/DL Creatinine 2.14 MG/DL Random Glucose 108 MG/DL Calcium Level 10.2 MG/DL Sodium Level 137 MEQ/L Potassium Level 4.1 MEQ/L Chloride Level 105 MEQ/L Carbon Dioxide Level 20.4 MEQ/L Anion Gap 12 MEQ/L Estimat Glomerular Filtration Rate 32 ML/MIN Thyroid Stimulating Hormone 3rd Gen 0.977 uIU/ML Ethyl Alcohol Level LESS THAN 3 MG/DL [place] Level 0.8 MEQ/L MDM Medical Decision Making Medical Screen Exam Complete: Yes Emergency Medical Condition: Yes Medical Record Reviewed: Yes Differential Diagnosis Mood disorder versus personality disorder versus adjustment reaction disorder versus medication side effect Narrative Course 57-year-old male presents to the emergency department under Dyer act for psychiatric evaluation. Patient appears without distress although he is agitated. His vital signs are stable. He is tremulous. [place] level is therapeutic. Lab work is without acute concern except for patient has a noted increase in his creatinine and decrease in his GFR. Patient is given IV fluids for this. He will need to get this checked out patient. Patient has been given Ativan to help him calm down. Laboratory Tests Test 01/05/18 22:50 01/05/18 23:55 Blood Urea Nitrogen 17 MG/DL Creatinine 2.14 MG/DL Random Glucose 108 MG/DL Calcium Level 10.2 MG/DL Sodium Level 137 MEQ/L Potassium Level 4.1 MEQ/L Chloride Level 105 MEQ/L Carbon Dioxide Level 20.4 MEQ/L Anion Gap 12 MEQ/L Estimat Glomerular Filtration Rate 32 ML/MIN Thyroid Stimulating Hormone 3rd Gen 0.977 uIU/ML Ethyl Alcohol Level LESS THAN 3 MG/DL [place] Level 0.8 MEQ/L CBC has not yet resulted. A re-collect has been ordered. Can panel is within normal limits except for function as discussed above. Patient is medically cleared at this time to undergo psychiatric screening for further evaluation and disposition. Mental health screening discussed with the patient. Psychiatric screen ordered. Diagnosis Primary Impression: Schizoaffective disorder Qualified Codes: F25.9 - Schizoaffective disorder, unspecified Additional Impression: CKD (chronic kidney disease) Qualified Codes: N18.9 - Chronic kidney disease, unspecified Condition: Stable WinnMarianne montelongo CLARISA Jan 05, 2018 22:28
[2018-01-05 23:03] VITALS: PULSE 92; RESP 20; TEMP 98.9; O2SAT 99
[2018-01-05 23:40] LABS: BICARBONATE 20.4 MEQ/L (21.0-32.0); BLOOD UREA NITROGEN 17 MG/DL (7-18); CALCIUM 10.2 MG/DL (8.5-10.1); CHLORIDE 105 MEQ/L (98-107); CREATININE 2.14 MG/DL (0.60-1.30); GLOMERULAR FILTRATION RATE 32 ML/MIN (>89); GLUCOSE,RANDOM 108 MG/DL (74-106); SODIUM (NA) 137 MEQ/L (136-145)
[2018-01-06] MEDS ORDERED: SODIUM CHLOR 0.9% 1000 ML INJ 1,000 ML IV ONE
[2018-01-06] MEDS ORDERED: LORazepam 2 MG/ML VIAL IV PUSH ONE ×2 (02:45)
[2018-01-06 04:53] LABS: HEMATOCRIT 35.6 % (39.0-51.0); HEMOGLOBIN 12.3 GM/DL (13.0-17.0); MEAN CELL VOLUME 84.8 FL (80.0-100.0); MEAN CORPUSCULAR HEMOGLOBIN 29.4 PG (27.0-34.0); MEAN CORPUSCULAR HGB CONC 34.6 % (32.0-36.0); MEAN PLATELET VOLUME 6.9 FL (7.0-11.0); PLATELET COUNT 271 TH/MM3 (150-450); RED BLOOD COUNT 4.19 MIL/MM3 (4.50-5.90); RED CELL DISTRIBUTION WIDTH 14.9 % (11.6-17.2); WHITE BLOOD COUNT 9.6 TH/MM3 (4.0-11.0)
[2018-01-06 04:54] LABS: AUTOMATED NEUTROPHIL # 6.3 TH/MM3 (1.8-7.7); BASOPHIL # 0.1 TH/MM3 (0-0.2); BASOPHIL % 0.9 % (0.0-2.0); EOSINOPHIL # 0.4 TH/MM3 (0-0.4); EOSINOPHIL % 3.8 % (0.0-4.0); LYMPH % 22.3 % (9.0-44.0); LYMPHOCYTE # 2.1 TH/MM3 (1.0-4.8); MONO % 7.6 % (0.0-8.0); MONOCYTE # 0.7 TH/MM3 (0-0.9); NEUT % 65.4 % (16.0-70.0)
[2018-01-06 12:51] VITALS: BP 130/90; PULSE 78; RESP 16; TEMP 98.6; O2SAT 100
[2018-01-06] MEDS ORDERED: ZIPRASIDONE MESYLATE 20 MG VIAL IM ONE (14:30)
[2018-01-06] MEDS ORDERED: diphenhydrAMINE HCL 50 MG/ML VIAL IM ONE (14:30)
[2018-01-06 16:30] VITALS: BP 160/90; PULSE 87; RESP 17; TEMP 98.7; O2SAT 97
[2018-01-06] MEDS ORDERED: ALUMINUM/MAGNESIUM/SIMETH 30 ML CUP PO PRN (16:30)
[2018-01-06] MEDS ORDERED: MAGNESIUM HYDROXIDE SUSP 30 ML CUP PO PRN (16:30)
[2018-01-06] MEDS ORDERED: LORazepam 2 MG/ML VIAL IM PRN (16:30)
[2018-01-06] MEDS ORDERED: LORazepam 1 MG TAB PO PRN (16:30)
[2018-01-06] MEDS ORDERED: traZODone HCL 50 MG TAB PO SCH (21:00)
[2018-01-06] MEDS ORDERED: LITHIUM CARBONATE 300 MG TAB PO SCH (21:00)
[2018-01-06] MEDS ORDERED: ZIPRASIDONE HCL 80 MG CAP PO SCH (21:00)
[2018-01-06] MEDS: REMOVE OLD NICOTINE PATCH T-DERMAL SCH (21:00)
[2018-01-06] MEDS: ATENOLOL 50 MG TAB PO SCH (21:25)
[2018-01-06] MEDS: ACETAMINOPHEN 325 MG TAB PO PRN (21:31)
[2018-01-07 05:59] VITALS: BP 115/62; PULSE 60; RESP 16; TEMP 97.9; O2SAT 95
[2018-01-07] MEDS ORDERED: ASPIRIN 81 MG CHEW TAB PO SCH (09:00)
[2018-01-07] MEDS: ATENOLOL 50 MG TAB PO SCH ×2 (09:00→21:23)
[2018-01-07] MEDS: NICOTINE 21 MG/24 HR PATCH T-DERMAL SCH (09:00)
[2018-01-07 10:59] LABS: BICARBONATE 23.5 MEQ/L (21.0-32.0); BLOOD UREA NITROGEN 15 MG/DL (7-18); CALCIUM 8.9 MG/DL (8.5-10.1); CHLORIDE 111 MEQ/L (98-107); CHOLESTEROL 190 MG/DL (120-200); CREATININE 1.61 MG/DL (0.60-1.30); GLOMERULAR FILTRATION RATE 44 ML/MIN (>89); GLUCOSE,RANDOM 94 MG/DL (74-106); SODIUM (NA) 143 MEQ/L (136-145)
[2018-01-07 11:06] LABS: CHOLESTEROL/ HDL RATIO 4.65 RATIO; HDL CHOLESTEROL 40.8 MG/DL (40.0-60.0); LDL CHOLESTEROL 114 MG/DL (0-99); TRIGLYCERIDES 177 MG/DL (42-150)
--- NOTE | 2018-01-07 15:29 | HHI.HP ---
Provisional Diagnosis Admission Date Jan 06, 2018 at 16:02 [place] I. Schizoaffective disorder bipolar type Certification of Person's Competence To Provide Express and Informed Consent I have personally examined Sagar Maddox , a person being served at [facility] on, Jan 07, 2018 15:19. Express and informed consent means consent voluntarily given in writing, by a competent person, after sufficient explanation and disclosure of the subject matter involved to enable the person to make a knowing and willful decision without any element of force, fraud, deceit, duress, or other form of constraint or coercion. This person is 18 years of age or older, is not now known to be incompetent to consent to treatment with a guardian advocate, and does not have a health care surrogate or proxy currently making medical treatment decisions. I have found this person to be one of the following: [] Competent to provide express and informed consent, as defined above, for voluntary admission to this facility and is competent to provide express and informed consent for treatment. He/she has the consistent capacity to make well reasoned, willful, and knowing decisions concerning his or her medical or mental health treatment. The person fully and consistently understands the purpose of the admission for examination/placement and is fully capable of personally exercising all rights assured under [place] Incompetent to provide express and informed consent to voluntary admission , and this is incompetent to provide express and informed consent to treatment. The person must be transferred to involuntary status and a petition for a guardian advocate filed with the Circuit Court. [] Refusing to provide express and informed consent to voluntary admission but is competent to provide express and informed consent for treatment. The person must be discharged or transferred to involuntary status. Form shall be completed within 24 hours of a person's arrival at the receiving facility and filed in the clinical record of each person: 1. Admitted on a voluntary basis 2. Permitted to provide express and informed consent to his/her own treatment 3. Allowed to transfer from involuntary to voluntary status 4. Prior to permitting a person to consent to his or her own treatment after having been previously found incompetent to consent to treatment. History of Present Illness Capacity: Lacks Capacity HPI Patient is a 57-year-old white male well known to us from prior contacts comes here under [place] act by the [place] [employer] dated 01/05/18 at 8: 34 PM that segment reviewed it is essentially stating that there were multiple callers that advised . she was traveling southbound in the northbound legs of [facility] he was shaking very badly the advisedly wanted to go to [place] and needed directions because he was going the wrong way he stated he lived at the address sinus license however that had a [place] address she is single advised he is bipolar and schizophrenic and takes medication nightly advised multiple times he wanted to go to [place] but Saying his license address [place] is where he lives patient seen screened in the ED urine toxicology positive for benzodiazepines. 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 He also has some occasional fine tremors in both hands is perseverative and repetitive with his statements he screamed out that he suicidal he does deny voices but he appears to be responding significantly to internal stimuli. He states his compliant with his medication but is unable to identify his clinician or the clinician works. He denies alcohol or drug use with this. At this time patient does meet criteria for inpatient psychiatric hospitalization under the Dyer act I'll do first opinion request second opinion I also feel he has no capacity I'll ask for healthcare surrogate and guardian advocate. We will restart him on his medications the med reconciliation lithium level drawn on admission at 2355 yesterday is 0.8. Review of Systems ROS Limitations: Altered Mental Status, Uncooperative Past Psych History Psychological trauma history Unknown at this time due to patient's mental state Violence risk - others (6 mos) Perhaps inadvertent by his erratic driving Violence risk - self (6 mos) Perhaps inadvertent due to his erratic driving Substance Abuse History Drugs/Alcohol past 12 months Denies Past Family Social History Coded Allergies: No Known Allergies (Unverified , 05/10/17) Active Scripts [employer] Carbonate ([employer] Carbonate) 300 Mg Tab, 300 MG PO Q12HR for health for 30 Days, #60 TAB Prov:Deuce Connelly MD 10/27/17 Trazodone (Trazodone) 50 Mg Tab, 50 MG PO HS for health for 30 Days, #30 TAB Prov:Deuce Connelly MD 10/27/17 Atenolol (Atenolol) 50 Mg Tab, 50 MG PO BID for Blood Pressure Management for 30 Days, #60 TAB 0 Refills Prov:Deuce Connelly MD 10/27/17 Ziprasidone (Geodon) 80 Mg Cap, 80 MG PO BID for health for 30 Days, #60 CAP Prov:Deuce Connelly MD 10/27/[address] (Adult Aspirin EC Low Strength) 81 Mg Tabec, 81 MG PO DAILY for health, #30 TAB 0 Refills Prov:Jeff Tyson MD 04/30/17 Discontinued Reported Medications Prednisone (Prednisone) 10 Mg Tab, 10 MG PO DAILY for 3 Days, #3 TAB 0 Refills 10/26/17 Discontinued Scripts Prednisone (Prednisone) 10 Mg Tab, 10 MG PO DAILY for health for 3 Days, #3 TAB Prov:Deuce Connelly MD 10/27/17 Prednisone (Prednisone) 20 Mg Tab, 20 MG PO DAILY for health for 3 Days, #3 TAB Prov:Deuce Connelly MD 10/27/17 Prednisone (Prednisone) 20 Mg Tab, 30 MG PO DAILY for health for 3 Days, #5 TAB Prov:Deuce Connelly MD 10/27/17 Prednisone (Prednisone) 20 Mg Tab, 40 MG PO DAILY for health for 1 Day, #2 TAB Prov:Deuce Connelly MD 10/27/17 Famotidine (Famotidine) 20 Mg Tab, 10 MG PO BID for health for 30 Days, #30 TAB Prov:Deuce Connelly MD 10/27/17 Current Medications Medications (Trade) Dose Ordered Sig/Cris Route Start Time Stop Time Status Last Admin (Ativan) 1 mg Q6H PRN PO 01/06/18 16:30 Future Hold (Ativan Inj) 1 mg Q6H PRN IM 01/06/18 16:30 Future Hold (Tylenol) 650 mg Q4H PRN PO 01/06/18 16:30 01/06/18 21:31 (Milk Of Magnesia Liq) 30 ml DAILY PRN PO 01/06/18 16:30 (Mag-Al Plus Susp Liq) 30 ml Q6H PRN PO 01/06/18 16:30 (Habitrol 21 Mg Patch.24 Hr) 1 patch DAILY T-DERMAL 01/07/18 09:00 Miscellaneous Information 1 HS T-DERMAL 01/06/18 21:00 (Aspirin Chew) 81 mg DAILY PO 01/07/18 09:00 01/07/18 07:51 (Tenormin) 50 mg BID PO 01/06/18 21:00 01/07/18 09:00 (Lithotabs) 300 mg BID PO 01/06/18 21:00 Future Hold (Desyrel) 50 mg HS PO 01/06/18 21:00 Future Hold (Geodon) 80 mg BID PO 01/06/18 21:00 Future Hold Family Psych History Unknown at this time Social History Patient lives in halfway Patient's Strengths (min. 2) Patient verbal labile axis health care Physical Exam Patient medically cleared in ED at the present time patient laying fairly calmly on his bed though he is loud and boisterous and disorganized Vital Signs Vital Signs Date Time Temp Pulse Resp B/P (MAP) Pulse Ox O2 Delivery O2 Flow Rate FiO2 01/07/18 05:59 97.9 60 16 115/62 (79) 95 01/05/18 23:03 Room Air Lab Results Test 01/07/18 09:30 Blood Urea Nitrogen 15 MG/DL Creatinine 1.61 MG/DL Random Glucose 94 MG/DL Calcium Level 8.9 MG/DL Sodium Level 143 MEQ/L Potassium Level 3.5 MEQ/L Chloride Level 111 MEQ/L Carbon Dioxide Level 23.5 MEQ/L Anion Gap 9 MEQ/L Estimat Glomerular Filtration Rate 44 ML/MIN Triglycerides Level 177 MG/DL Cholesterol Level 190 MG/DL LDL Cholesterol 114 MG/DL HDL Cholesterol 40.8 MG/DL Cholesterol/HDL Ratio 4.65 RATIO Mental Status Examination Appearance: Disheveled Consciousness: Alert Orientation: Person, Place, Date/Time Motor Activity: Abnormal gait (patient states he has sciatica) Speech: Pressured, Rapid Language: Adequate Fund of Knowledge: Inadequate Attention and Concentration: Easily Distracted Memory: Impaired Mood: Angry, Anxious, Irritable Affect: Other (increased range and intensity) Thought Process & Associations: Disorganized Thought Content: Bizarre thinking Hallucination Type: Auditory Delusion Type: Paranoid Suicidal Ideation: Yes Suicidal Plan: No Suicidal Intention: Yes (vagueResponding to internal stimuli) Homicidal Ideation: No Homicidal Plan: No Homicidal Intention: No Insight: Poor Judgment: Poor Assessment & Plan Problem List: (1) Schizoaffective disorder ICD Codes: F25.9 - Schizoaffective disorder, unspecified Status: Acute Assessment & Plan Estimated LOS: days issue is criteria for involuntary psychiatric hospitalization I'll do first opinion request second opinion. I feel he has no capacity thus I'll ask for healthcare surrogate and guardian advocate. We'll continue medication per the med reconciliation. Hopeless be fairly short stay with return to his halfway Discharge Planning To be determined possible return to halfway Request HC Surrog/Guard Advoc?: Yes Problem Qualifiers (1) Schizoaffective disorder: Qualified Codes: F25.0 - Schizoaffective disorder, bipolar type Jeff Tyson MD Jan 07, 2018 15:29
--- NOTE | 2018-01-07 15:59 | PD.CONS ---
HPI Service [facility] Hospitalists Consult Requested By Dr. Tyson Reason for Consult Medical management Primary Care Physician No Primary Care Physician Diagnoses: History of Present Illness The patient is a 57-year-old male currently admitted to inpatient psychiatry for management of schizoaffective disorder. Hospitalist consult was requested for medical management. The patient has multiple complaints, however they are all psychiatric and social complaints. He is fixated on his car, which apparently has been impounded. He denies any physical complaints at this time. Review of Systems ROS Limitations: Psychotic Constitutional: DENIES: Fever, Chills, Night Sweats Eyes: DENIES: Blurred vision, Vision loss Ears, nose, mouth, throat: DENIES: Hearing loss Respiratory: DENIES: Cough, Wheezing, Sputum production, Shortness of breath Cardiovascular: DENIES: Chest pain, Palpitations, Dyspnea on Exertion, Lower Extremity Edema Gastrointestinal: DENIES: Abdominal pain, Constipation, Diarrhea, Nausea, Vomiting Genitourinary: DENIES: Urinary frequency, Urinary incontinence, Urgency, Hematuria, Dysuria, Nocturia Musculoskeletal: DENIES: Joint pain, Muscle aches Integumentary: DENIES: Pruritus, Rash Hematologic/lymphatic: DENIES: Bruising Neurologic: DENIES: Headache Past Family Social History Allergies: Coded Allergies: No Known Allergies (Unverified , 05/10/17) Past Medical History Hypertension Coronary artery disease Past Surgical History Pituitary resection Cardiac stent 2 Reported Medications [place] Carbonate 300 Mg Tab 300 Mg PO Q12HR 30 Days Trazodone (Trazodone HCl) 50 Mg Tab 50 Mg PO HS 30 Days Atenolol 50 Mg Tab 50 Mg PO BID 30 Days Geodon (Ziprasidone) 80 Mg Cap 80 Mg PO BID 30 Days Adult Aspirin EC Low Strength (Aspirin) 81 Mg Tabec 81 Mg PO DAILY Family History Cancer Social History Denies alcohol, tobacco, or illicit drug use. Physical Exam Vital Signs Vital Signs Date Time Temp Pulse Resp B/P (MAP) Pulse Ox O2 Delivery O2 Flow Rate FiO2 01/07/18 05:59 97.9 60 16 115/62 (79) 95 01/06/18 16:30 98.7 87 17 160/90 (113) 97 Physical Exam GENERAL: Well-nourished, well-developed male in no acute distress. HEENT: Normocephalic, atraumatic. Pupils are dilated. Extraocular movements intact. No scleral icterus. No injection or drainage. Oropharynx is clear. Mucous membranes are moist. CARDIOVASCULAR: Regular rate and rhythm without murmurs, gallops, or rubs. RESPIRATORY: Clear to auscultation. No wheezes, rales, or rhonchi. Breathing is non-labored. GASTROINTESTINAL: Abdomen soft, non-tender, nondistended. EXTREMITIES: No lower extremity edema. No calf tenderness. PSYCH: Alert, oriented. Pressured speech, anxious. Laboratory Laboratory Tests Test 01/07/18 09:30 Blood Urea Nitrogen 15 Creatinine 1.61 Random Glucose 94 Calcium Level 8.9 Sodium Level 143 Potassium Level 3.5 Chloride Level 111 Carbon Dioxide Level 23.5 Anion Gap 9 Estimat Glomerular Filtration Rate 44 Triglycerides Level 177 Cholesterol Level 190 LDL Cholesterol 114 HDL Cholesterol 40.8 Cholesterol/HDL Ratio 4.65 Result Diagram: 01/06/18 0440 01/07/18 0930 Assessment and Plan Assessment and Plan 1. Schizoaffective disorder: Management per psychiatry. 2. Hypertension: Continue atenolol. 3. Coronary artery disease: Continue aspirin. Currently asymptomatic. 4. Acute kidney injury: Creatinine improving. Encourage oral hydration. Recheck labs in the morning. Dl Dominguez MD Jan 07, 2018 15:59
[2018-01-07 16:57] LABS: HEMOGLOBIN A1C 4.4 % (4.3-6.0)
[2018-01-07 17:42] VITALS: BP 126/80; PULSE 74; RESP 19; TEMP 98.3; O2SAT 95
[2018-01-07] MEDS: ZIPRASIDONE HCL 80 MG CAP PO SCH (21:00)
[2018-01-07] MEDS: LITHIUM CARBONATE 300 MG TAB PO SCH (21:00)
[2018-01-07] MEDS: traZODone HCL 50 MG TAB PO SCH (21:00)
[2018-01-07] MEDS: REMOVE OLD NICOTINE PATCH T-DERMAL SCH (21:00)
[2018-01-08 06:41] VITALS: BP 141/81; PULSE 57; RESP 57; TEMP 97.8; O2SAT 18
[2018-01-08] MEDS: ATENOLOL 50 MG TAB PO SCH ×2 (08:23→20:46)
[2018-01-08] MEDS: ASPIRIN EC 81 MG TABEC PO SCH (08:23)
[2018-01-08] MEDS: NICOTINE 21 MG/24 HR PATCH T-DERMAL SCH (09:00)
[2018-01-08] MEDS: LITHIUM CARBONATE 300 MG TAB PO SCH ×2 (09:00→20:46)
[2018-01-08] MEDS: ZIPRASIDONE HCL 80 MG CAP PO SCH ×2 (09:00→20:46)
[2018-01-08 09:20] LABS: BICARBONATE 23.4 MEQ/L (21.0-32.0); CREATININE 1.64 MG/DL (0.60-1.30)
--- NOTE | 2018-01-08 12:29 | PD.PSY.CON ---
Provisional Diagnosis Admission Date Jan 06, 2018 at 16:02 [place]. Schizoaffective disorder bipolar type History of Present Illness Service Psychiatry Consult Requested By Dr. Tyson Reason for Consult Second opinion Primary Care Physician No Primary Care Physician HPI Patient is a 57-year-old white male well known to us from prior contacts comes here under Dyer act by the [employer] dated 01/05/18 at 8: 34 PM that segment reviewed it is essentially stating that there were multiple callers that advised Mr. she was traveling southbound in the northbound legs of [facility] he was shaking very badly the advisedly wanted to go to [place] and needed directions because he was going the wrong way he stated he lived at the address sinus license however that had a [place] address she is single advised he is bipolar and schizophrenic and takes medication nightly advised multiple times he wanted to go to [place] but Saying his license address [place] is where he lives patient seen screened in the ED urine toxicology positive for benzodiazepines. 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 He also has some occasional fine tremors in both hands is perseverative and repetitive with his statements he screamed out that he suicidal he does deny voices but he appears to be responding significantly to internal stimuli. He states his compliant with his medication but is unable to identify his clinician or the clinician works. He denies alcohol or drug use with this. At this time patient does meet criteria for inpatient psychiatric hospitalization under the Dyer act I'll do first opinion request second opinion I also feel he has no capacity I'll ask for healthcare surrogate and guardian advocate. We will restart him on his medications the med reconciliation lithium level drawn on admission at 2355 yesterday is 0.8. 01/08/18 -second opinion Patient is a 57-year-old man who carries a diagnosis of schizophrenia , previous psychiatric admissions, who was brought under Dyer act due to concerns of patient driving erratically on the highway and noted be disorganized and confused which patient was admitted to the patient psychiatry for further evaluation and management. Patient was found lying hospital bed B, cooperative but irritable and refusing to continue interview toward the end. Patient states that he is feeling "like sh*t", stating that he was brought in by police after driving down the highway he stated he was getting lost and was swerving on the road as he mentions was trying to reach his GPS. Patient states he is confused all the time, reports being followed up with Dr. Harris outpatient psychiatrist. Patient states previous diagnosis of bipolar disorder and schizophrenia, denies any auditory hallucinations but states having had them in the past last time being "I do not know". Patient continues to endorse suicide ideations, when asked thoughts of hurting himself patient reports "l'd love to". Past Family Social History Coded Allergies: No Known Allergies (Unverified , 05/10/17) Active Scripts Seguin Carbonate (Seguin Carbonate) 300 Mg Tab, 300 MG PO Q12HR for health for 30 Days, #60 TAB Prov:Deuce Connelly MD 10/27/17 Trazodone (Trazodone) 50 Mg Tab, 50 MG PO HS for health for 30 Days, #30 TAB Prov:Deuce Connelly MD 10/27/17 Atenolol (Atenolol) 50 Mg Tab, 50 MG PO BID for Blood Pressure Management for 30 Days, #60 TAB 0 Refills Prov:Deuce Connelly MD 10/27/17 Ziprasidone (Geodon) 80 Mg Cap, 80 MG PO BID for health for 30 Days, #60 CAP Prov:Deuce Connelly MD 10/27/[address] (Adult Aspirin EC Low Strength) 81 Mg Tabec, 81 MG PO DAILY for health, #30 TAB 0 Refills Prov:Jeff Tyson MD 04/30/17 Discontinued Reported Medications Prednisone (Prednisone) 10 Mg Tab, 10 MG PO DAILY for 3 Days, #3 TAB 0 Refills 10/26/17 Discontinued Scripts Prednisone (Prednisone) 10 Mg Tab, 10 MG PO DAILY for health for 3 Days, #3 TAB Prov:Deuce Connelly MD 10/27/17 Prednisone (Prednisone) 20 Mg Tab, 20 MG PO DAILY for health for 3 Days, #3 TAB Prov:Deuce Connelly MD 10/27/17 Prednisone (Prednisone) 20 Mg Tab, 30 MG PO DAILY for health for 3 Days, #5 TAB Prov:Deuce Connelly MD 10/27/17 Prednisone (Prednisone) 20 Mg Tab, 40 MG PO DAILY for health for 1 Day, #2 TAB Prov:Deuce Connelly MD 10/27/17 Famotidine (Famotidine) 20 Mg Tab, 10 MG PO BID for health for 30 Days, #30 TAB Prov:Deuce Connelly MD 10/27/17 Current Medications Medications (Trade) Dose Ordered Sig/Cris Route Start Time Stop Time Status Last Admin (Ativan) 1 mg Q6H PRN PO 01/06/18 16:30 Future Hold (Ativan Inj) 1 mg Q6H PRN IM 01/06/18 16:30 Future Hold (Tylenol) 650 mg Q4H PRN PO 01/06/18 16:30 01/06/18 21:31 (Milk Of Magnesia Liq) 30 ml DAILY PRN PO 01/06/18 16:30 (Mag-Al Plus Susp Liq) 30 ml Q6H PRN PO 01/06/18 16:30 (Habitrol 21 Mg Patch.24 Hr) 1 patch DAILY T-DERMAL 01/07/18 09:00 Miscellaneous Information 1 HS T-DERMAL 01/06/18 21:00 (Benadryl) 50 mg HS PRN PO 01/07/18 15:15 (Atarax) 50 mg Q6H PRN PO 01/07/18 15:15 (Ecotrin Ec) 81 mg DAILY PO 01/08/18 09:00 01/08/18 08:23 (Tenormin) 50 mg BID PO 01/07/18 21:00 01/08/18 08:23 (Lithotabs) 300 mg Q12HR PO 01/07/18 21:00 (Desyrel) 50 mg HS PO 01/07/18 21:00 (Geodon) 80 mg BID PO 01/07/18 21:00 Patient's Strengths (min. 2) Patient verbal labile axis health care Physical Exam Vital Signs Vital Signs Date Time Temp Pulse Resp B/P (MAP) Pulse Ox O2 Delivery O2 Flow Rate FiO2 01/08/18 06:41 97.8 57 57 141/81 (101) 18 01/05/18 23:03 Room Air Lab Results Test 01/08/18 08:02 Blood Urea Nitrogen 16 MG/DL Creatinine 1.64 MG/DL Random Glucose 97 MG/DL Calcium Level 9.0 MG/DL Sodium Level 141 MEQ/L Potassium Level 3.4 MEQ/L Chloride Level 110 MEQ/L Carbon Dioxide Level 23.4 MEQ/L Anion Gap 8 MEQ/L Estimat Glomerular Filtration Rate 43 ML/MIN Mental Status Examination Appearance: Dirty, Disheveled Consciousness: Alert Orientation: Person, Place, Date/Time Motor Activity: Abnormal gait (patient states he has sciatica) Speech: Pressured, Rapid Language: Adequate Fund of Knowledge: Inadequate Attention and Concentration: Easily Distracted Memory: Impaired Mood: Angry, Anxious, Irritable Affect: Other (increased range and intensity) Thought Process & Associations: Disorganized Thought Content: Bizarre thinking Hallucination Type: Auditory Delusion Type: Paranoid Suicidal Ideation: Yes Suicidal Plan: No Suicidal Intention: Yes (vagueResponding to internal stimuli) Homicidal Ideation: No Homicidal Plan: No Homicidal Intention: No Insight: Poor Judgment: Poor Assessment & Plan Problem List: (1) Schizoaffective disorder ICD Codes: F25.9 - Schizoaffective disorder, unspecified Status: Acute Assessment & Plan I have seen and examined patient, documentation reviewed and I agree and concur with Dr. Tyson's assessment and plan. I have completed the second opinion. Consult appreciated. Request HC Surrog/Guard Advoc?: Yes Problem Qualifiers (1) Schizoaffective disorder: Qualified Codes: F25.0 - Schizoaffective disorder, bipolar type Deuce Connelly MD Jan 08, 2018 12:29
[2018-01-08] MEDS: hydrOXYzine HCL 50 MG TAB PO PRN (14:02)
--- NOTE | 2018-01-08 15:57 | HHI.PR ---
Subjective Remarks Follow-up hypertension, acute kidney injury. The patient states that he feels "terrible". He denies any physical complaints. States that he is very upset about his car. Objective Vitals Vital Signs Date Time Temp Pulse Resp B/P (MAP) Pulse Ox O2 Delivery O2 Flow Rate FiO2 01/08/18 06:41 97.8 57 57 141/81 (101) 18 01/07/18 17:42 98.3 74 19 126/80 (95) 95 Result Diagram: 01/06/18 0440 01/08/18 0802 Objective Remarks General: Disheveled male in no acute distress. Heart: Regular rate and rhythm. No murmur. Lungs: Clear to auscultation bilaterally. No wheezes, rales, or rhonchi. Breathing is nonlabored. Abdomen: Soft, nontender, nondistended. Extremities: No lower extremity edema. Psych: Alert and oriented. Procedures None Urinary Catheter: No Vascular Central Line Catheter: No A/P Assessment and Plan 1. Schizoaffective disorder: Management per psychiatry. 2. Hypertension: Continue atenolol. 3. Coronary artery disease: Continue aspirin. Currently asymptomatic. 4. Acute kidney injury: Creatinine is stable. Encourage oral hydration. Recheck labs in the morning. 5. Mild hypokalemia: Supplement potassium. Recheck labs in the morning. Dl Dominguez MD Jan 08, 2018 15:57
[2018-01-08] MEDS ORDERED: POTASSIUM CHLORIDE 10 MEQ CAP PO ONE (16:00)
[2018-01-08 16:52] VITALS: BP 116/57; PULSE 63; RESP 17; TEMP 99.2; O2SAT 98
[2018-01-08] MEDS: ACETAMINOPHEN 325 MG TAB PO PRN (20:50)
[2018-01-08] MEDS: traZODone HCL 50 MG TAB PO SCH (21:00)
[2018-01-08] MEDS: REMOVE OLD NICOTINE PATCH T-DERMAL SCH (21:00)
[2018-01-09 06:38] VITALS: BP 114/59; PULSE 47; RESP 17; TEMP 97.8; O2SAT 100
[2018-01-09] MEDS: ACETAMINOPHEN 325 MG TAB PO PRN (07:49)
[2018-01-09 08:59] LABS: BICARBONATE 23.9 MEQ/L (21.0-32.0); CALCIUM 9.8 MG/DL (8.5-10.1); CREATININE 1.56 MG/DL (0.60-1.30); MAGNESIUM 2.3 MG/DL (1.5-2.5)
[2018-01-09] MEDS: ASPIRIN EC 81 MG TABEC PO SCH (09:00)
[2018-01-09] MEDS: ATENOLOL 50 MG TAB PO SCH ×2 (09:00→20:04)
[2018-01-09] MEDS: NICOTINE 21 MG/24 HR PATCH T-DERMAL SCH (09:00)
--- NOTE | 2018-01-09 09:17 | HHI.PYPN ---
Subjective Remarks Reviewed electronic medical record and discussed case with staff. Follow-up was performed in patient's room. Patient found lying in bed. Patient states that he is "sad because as of today I am homeless". When asked to elaborate patient states that he has been living in a [facility] and will not be able to return due to being here. Patient is alert and oriented 4. It took a couple of attempts at the answers but he arrived at the right answer without any prompting or hints. Patient advises that he has executive function disorder and that this is baseline for him. The nurse reported that he requested to be given his psychotropic medications. Seeing as these were the same medications that he was on his admission in October, and patient reports compliance with them outside of the hospital, I will give him capacity to sign for his medications and order them. Mental Status Examination Appearance: Dirty, Disheveled Consciousness: Alert Orientation: Person, Place, Date/Time Motor Activity: Abnormal gait (patient states he has sciatica) Speech: Pressured, Rapid Language: Adequate Fund of Knowledge: Adequate Attention and Concentration: Easily Distracted Memory: Impaired Mood: Anxious (Slightly) Affect: Anxious Thought Process & Associations: Linear Thought Content: Appropriate Hallucination Type: None Delusion Type: Paranoid Suicidal Ideation: No (Denies) Suicidal Plan: No Suicidal Intention: No Homicidal Ideation: No Homicidal Plan: No Homicidal Intention: No Insight: Fair Judgment: Impulsive Results Labs Test 01/09/18 07:04 Blood Urea Nitrogen 14 MG/DL Creatinine 1.56 MG/DL Random Glucose 127 MG/DL Calcium Level 9.8 MG/DL Magnesium Level 2.3 MG/DL Sodium Level 143 MEQ/L Potassium Level 3.9 MEQ/L Chloride Level 110 MEQ/L Carbon Dioxide Level 23.9 MEQ/L Anion Gap 9 MEQ/L Estimat Glomerular Filtration Rate 46 ML/MIN Vitals/IOs Vital Signs Date Time Temp Pulse Resp B/P (MAP) Pulse Ox O2 Delivery O2 Flow Rate FiO2 01/09/18 06:38 97.8 47 17 114/59 (77) 100 01/05/18 23:03 Room Air Assessment & Plan Problem List: (1) Schizoaffective disorder ICD Codes: F25.9 - Schizoaffective disorder, unspecified Status: Acute Assessment & Plan Estimated LOS: Will reestablish patient on his medications. Condition is slightly improved. Justification for Cont. Inpt. Moving this patient to a lower level of care would result in decompensation. Request HC Surrog/Guard Advoc?: Yes Problem Qualifiers (1) Schizoaffective disorder: Qualified Codes: F25.0 - Schizoaffective disorder, bipolar type Andria Canseco Jan 09, 2018 09:17
[2018-01-09 10:04] VITALS: BP 127/60; PULSE 62; RESP 18
[2018-01-09] MEDS: ZIPRASIDONE HCL 80 MG CAP PO SCH ×2 (10:12→20:04)
[2018-01-09] MEDS: LITHIUM CARBONATE 300 MG TAB PO SCH ×2 (10:12→20:04)
--- NOTE | 2018-01-09 15:00 | HHI.PR ---
Subjective Remarks Follow up acute kidney injury, hypertension. Patient's only complaint is "sciatica pain". No events reported by nursing. Objective Vitals Vital Signs Date Time Temp Pulse Resp B/P (MAP) Pulse Ox O2 Delivery O2 Flow Rate FiO2 01/09/18 10:04 62 18 127/60 (82) 01/09/18 06:38 97.8 47 17 114/59 (77) 100 01/08/18 16:52 99.2 63 17 116/57 (76) 98 Result Diagram: 01/06/18 0440 01/09/18 0704 Objective Remarks General: Disheveled male in no acute distress. Heart: Regular rate and rhythm. No murmur. Lungs: Clear to auscultation bilaterally. No wheezes, rales, or rhonchi. Breathing is nonlabored. Abdomen: Soft, nontender, nondistended. Extremities: No lower extremity edema. Psych: Alert and oriented. Procedures None Urinary Catheter: No Vascular Central Line Catheter: No A/P Assessment and Plan 1. Schizoaffective disorder: Management per psychiatry. 2. Hypertension: Continue atenolol. 3. Coronary artery disease: Continue aspirin. Currently asymptomatic. 4. Acute kidney injury: Creatinine is improving. Encourage oral hydration. Gatorade added to meals. Recheck labs in the morning. 5. Mild hypokalemia: Improved. Dl Dominguez MD Jan 09, 2018 15:00
[2018-01-09 17:21] VITALS: BP 119/66; PULSE 58; RESP 16; TEMP 97.9; O2SAT 99
[2018-01-09] MEDS: traZODone HCL 50 MG TAB PO SCH (20:04)
[2018-01-09] MEDS: REMOVE OLD NICOTINE PATCH T-DERMAL SCH (21:00)
[2018-01-09] MEDS: hydrOXYzine HCL 50 MG TAB PO PRN (21:32)
[2018-01-10] MEDS: LITHIUM CARBONATE 300 MG TAB PO SCH ×2 (08:55→20:30)
[2018-01-10] MEDS: ASPIRIN EC 81 MG TABEC PO SCH (08:55)
[2018-01-10] MEDS: ZIPRASIDONE HCL 80 MG CAP PO SCH ×2 (08:55→20:30)
[2018-01-10] MEDS: ATENOLOL 50 MG TAB PO SCH ×2 (08:55→20:30)
[2018-01-10] MEDS: NICOTINE 21 MG/24 HR PATCH T-DERMAL SCH (08:56)
[2018-01-10 09:34] LABS: BICARBONATE 27.7 MEQ/L (21.0-32.0); CALCIUM 8.7 MG/DL (8.5-10.1); CREATININE 0.79 MG/DL (0.60-1.30)
--- NOTE | 2018-01-10 13:36 | HHI.PR ---
Subjective Remarks Follow-up visit for BOB and HTN. Patient is seen and examined in his room resting in bed, appears to be in no acute distress. Denies any fevers, chills, nausea, vomiting, diarrhea, SOB, cough, chest pain or discomfort at this moment. Objective Vitals Vital Signs Date Time Temp Pulse Resp B/P (MAP) Pulse Ox O2 Delivery O2 Flow Rate FiO2 01/09/18 17:21 97.9 58 16 119/66 (83) 99 Result Diagram: 01/06/18 0440 01/10/18 0811 Objective Remarks GENERAL: Well-nourished, well-developed male in no acute distress. HEENT: Normocephalic, atraumatic. No injection or drainage. Mucous membranes are moist. CARDIOVASCULAR: Regular rate and rhythm without murmurs, gallops, or rubs. RESPIRATORY: Clear to auscultation. No wheezes, rales, or rhonchi. Breathing is non-labored. GASTROINTESTINAL: Abdomen soft, non-tender, nondistended. EXTREMITIES: No lower extremity edema. No calf tenderness. NEUROLOGICAL: Alert, oriented. Moves all extremities spontaneously, following commands. Speech is clear, no facial droop. Procedures None A/P Assessment and Plan 57-year-old male with past medical history significant for HTN, and CAD admitted to inpatient psychiatry due to schizoaffective disorder. [facility] consulted to assist with medical management. Schizoaffective disorder - Management per psychiatry BOB -BMP from today reviewed, sodium 134, glucose 130. -Creatinine 0.79, BUN 11, GFR 100, improved -Patient encouraged to continue oral hydration. - Monitor BMP periodically HTN, controlled CAD -Continue low-dose aspirin, atenolol 50 mg twice daily. -Blood pressure and heart rate well controlled. DVT prophylaxis-ambulation Discussed with nurse, [facility] will sign off, please reconsult if needed. Saul Boyle Jan 10, 2018 13:36
[2018-01-10] MEDS: ACETAMINOPHEN 325 MG TAB PO PRN ×2 (13:41→20:34)
--- NOTE | 2018-01-10 13:55 | HHI.PYPN ---
Subjective Remarks Patient seen in his room with nurse Hodan, chart review, patient compliant medications, patient discussed with nurse. Patient seen in his room laying flat in the bed with covers up to his chin dating he is quite confused disoriented he knows his in [place] that is in a hospital but not our name , he knows 2017 and it is January. Though he states he initially did not remember the retirement that he was in the later responded appropriately. There is question as to his cognitive ability and memory. And perhaps is also some degree of manipulation with this. For now will continue treatment no change Review of Systems Except as stated in HPI: all other systems reviewed are Neg Mental Status Examination Appearance: Dirty, Disheveled Consciousness: Alert Orientation: Person, Place, Date/Time Motor Activity: Abnormal gait (patient states he has sciatica) Speech: Pressured, Rapid Language: Adequate Fund of Knowledge: Adequate Attention and Concentration: Easily Distracted Memory: Impaired Mood: Anxious (Slightly) Affect: Anxious Thought Process & Associations: Linear Thought Content: Appropriate Hallucination Type: None Delusion Type: Paranoid Suicidal Ideation: No (Denies) Suicidal Plan: No Suicidal Intention: No Homicidal Ideation: No Homicidal Plan: No Homicidal Intention: No Insight: Fair Judgment: Impulsive Results Labs Test 01/10/18 08:11 Blood Urea Nitrogen 11 MG/DL Creatinine 0.79 MG/DL Random Glucose 130 MG/DL Calcium Level 8.7 MG/DL Sodium Level 134 MEQ/L Potassium Level 4.0 MEQ/L Chloride Level 100 MEQ/L Carbon Dioxide Level 27.7 MEQ/L Anion Gap 6 MEQ/L Estimat Glomerular Filtration Rate 100 ML/MIN Vitals/IOs Vital Signs Date Time Temp Pulse Resp B/P (MAP) Pulse Ox O2 Delivery O2 Flow Rate FiO2 01/09/18 17:21 97.9 58 16 119/66 (83) 99 Assessment & Plan Problem List: (1) Schizoaffective disorder ICD Codes: F25.9 - Schizoaffective disorder, unspecified Status: Acute Assessment & Plan Estimated LOS: days patient today is somewhat subdued in his mood is range in affect. Showing some more confusion and disorientation. I wonder if there is of manipulation to this also. For now continue treatment no change Justification for Cont. Inpt. At this time patient will decompensate a placed a lower level of care Discharge Planning To be determined Request HC Surrog/Guard Advoc?: Yes Problem Qualifiers (1) Schizoaffective disorder: Qualified Codes: F25.0 - Schizoaffective disorder, bipolar type Jeff Tyson MD Jan 10, 2018 13:55
[2018-01-10 17:14] VITALS: BP 116/66; PULSE 76; RESP 18; TEMP 97.8; O2SAT 96
[2018-01-10] MEDS: traZODone HCL 50 MG TAB PO SCH (20:30)
[2018-01-10] MEDS: REMOVE OLD NICOTINE PATCH T-DERMAL SCH (20:30)
[2018-01-11 06:18] VITALS: BP 104/64; PULSE 50; RESP 17; TEMP 97.8
[2018-01-11] MEDS: NICOTINE 21 MG/24 HR PATCH T-DERMAL SCH (09:00)
[2018-01-11] MEDS: ZIPRASIDONE HCL 80 MG CAP PO SCH ×2 (09:29→20:08)
[2018-01-11] MEDS: LITHIUM CARBONATE 300 MG TAB PO SCH ×2 (09:29→20:06)
[2018-01-11] MEDS: ATENOLOL 50 MG TAB PO SCH ×3 (09:29→20:58)
[2018-01-11] MEDS: ACETAMINOPHEN 325 MG TAB PO PRN (09:29)
[2018-01-11] MEDS: ASPIRIN EC 81 MG TABEC PO SCH (09:29)
--- NOTE | 2018-01-11 11:58 | HHI.PYPN ---
Subjective Remarks Reviewed electronic medical record, labs, discuss case with staff. Patient's sodium noted to be low 134 glucose high 130. Follow-up was performed in patient 's room. Patient found lying in bed awakes to verbal stimuli. He reports that he is not feeling "too good". He states that he is pretty hopeless right now due to them having told his car away and him being out of money. He also has concerns about where he will live when he gets out. He states, "given the circumstances I have a right to feel suicidal". He denies feeling homicidal, having auditory or visual hallucinations. His mood is sad as is his affect. Mental Status Examination Appearance: Dirty, Disheveled Consciousness: Alert Orientation: Person, Place, Date/Time Motor Activity: Abnormal gait (patient states he has sciatica) Speech: Pressured, Rapid Language: Adequate Fund of Knowledge: Adequate Attention and Concentration: Easily Distracted Memory: Impaired Mood: Sad, Anxious (About his car, lack of funds, and living arrangements) Affect: Sad, Anxious Thought Process & Associations: Linear Thought Content: Appropriate Hallucination Type: None Delusion Type: Paranoid Suicidal Ideation: Yes (Endorses in the context of his overall situation. No plan.) Suicidal Plan: No Suicidal Intention: No Homicidal Ideation: No Homicidal Plan: No Homicidal Intention: No Insight: Fair Judgment: Impulsive Results Vitals/IOs Vital Signs Date Time Temp Pulse Resp B/P (MAP) Pulse Ox O2 Delivery O2 Flow Rate FiO2 01/11/18 06:18 97.8 50 17 104/64 (77) 01/10/18 17:14 96 Assessment & Plan Problem List: (1) Schizoaffective disorder ICD Codes: F25.9 - Schizoaffective disorder, unspecified Status: Acute Assessment & Plan Estimated LOS: Continue with treatment plan. Work on a discharge plan. Days Justification for Cont. Inpt. Review this patient to a lower level of care would likely result in decompensation. Safe discharge plan needs to be identified. Request HC Surrog/Guard Advoc?: Yes Problem Qualifiers (1) Schizoaffective disorder: Qualified Codes: F25.0 - Schizoaffective disorder, bipolar type Andria Canseco Jan 11, 2018 11:58
[2018-01-11 18:02] VITALS: BP 117/63; PULSE 57; RESP 17; TEMP 97.9; O2SAT 97
[2018-01-11] MEDS: traZODone HCL 50 MG TAB PO SCH (20:06)
[2018-01-11] MEDS: REMOVE OLD NICOTINE PATCH T-DERMAL SCH (20:08)
[2018-01-11 21:00] VITALS: BP 127/77; PULSE 54
[2018-01-12 05:52] VITALS: BP 107/55; PULSE 55; RESP 16; TEMP 97.3; O2SAT 95
[2018-01-12] MEDS: NICOTINE 21 MG/24 HR PATCH T-DERMAL SCH (09:00)
[2018-01-12] MEDS: ATENOLOL 50 MG TAB PO SCH ×2 (10:18→21:12)
[2018-01-12] MEDS: LITHIUM CARBONATE 300 MG TAB PO SCH ×2 (10:18→21:12)
[2018-01-12] MEDS: ZIPRASIDONE HCL 80 MG CAP PO SCH ×2 (10:18→21:12)
[2018-01-12] MEDS: ASPIRIN EC 81 MG TABEC PO SCH (10:18)
[2018-01-12] MEDS: ACETAMINOPHEN 325 MG TAB PO PRN (11:55)
--- NOTE | 2018-01-12 13:22 | HHI.PYPN ---
Subjective Remarks Patient seen in his room with floor staff, chart review, patient compliant medications, patient discussed with nurse. Patient laying quietly in his bed, he is more focused calm and cooperative. The degree of anxiety is diminished. He did recognize me. Did not he was in [facility], 2017 and January. Is still concerned about placement and his being homeless. This time I feel patient has capacity to sign for his admission thus I'll lift Dyer act will outpatient sign voluntary. Need to work with him on finding an appropriate placement perhaps an appropriate CUSTODIAL or [facility]ci Review of Systems Except as stated in HPI: all other systems reviewed are Neg Mental Status Examination Appearance: Dirty, Disheveled Consciousness: Alert Orientation: Person, Place, Date/Time Motor Activity: Abnormal gait (patient states he has sciatica) Speech: Pressured, Rapid Language: Adequate Fund of Knowledge: Adequate Attention and Concentration: Easily Distracted Memory: Impaired Mood: Sad, Anxious (About his car, lack of funds, and living arrangements) Affect: Sad, Anxious Thought Process & Associations: Linear Thought Content: Appropriate Hallucination Type: None Delusion Type: Paranoid Suicidal Ideation: Yes (Endorses in the context of his overall situation. No plan.) Suicidal Plan: No Suicidal Intention: No Homicidal Ideation: No Homicidal Plan: No Homicidal Intention: No Insight: Fair Judgment: Impulsive Results Vitals/IOs Vital Signs Date Time Temp Pulse Resp B/P (MAP) Pulse Ox O2 Delivery O2 Flow Rate FiO2 01/12/18 05:52 97.3 55 16 107/55 (72) 95 Assessment & Plan Problem List: (1) Schizoaffective disorder ICD Codes: F25.9 - Schizoaffective disorder, unspecified Status: Acute Assessment & Plan Estimated LOS: days patient is behavior has calm his affect range and intensity have calm. Is better oriented. For now will lift Dyer act will outpatient sign voluntary continue to work with medication continue to work with Luis issues Justification for Cont. Inpt. At this time patient decompensated placed at a lower level of care Discharge Planning To be determined Request HC Surrog/Guard Advoc?: Yes Problem Qualifiers (1) Schizoaffective disorder: Qualified Codes: F25.0 - Schizoaffective disorder, bipolar type Jeff Tyson MD Jan 12, 2018 13:22
[2018-01-12 17:39] VITALS: BP 114/63; PULSE 60; RESP 16; TEMP 96.9; O2SAT 97
[2018-01-12] MEDS: REMOVE OLD NICOTINE PATCH T-DERMAL SCH (21:00)
[2018-01-12] MEDS: traZODone HCL 50 MG TAB PO SCH (21:12)
[2018-01-12] MEDS: diphenhydrAMINE HCL 50 MG CAP PO PRN (21:18)
[2018-01-13 06:03] VITALS: BP 146/76; PULSE 58; RESP 16; TEMP 97.3; O2SAT 94
[2018-01-13] MEDS: NICOTINE 21 MG/24 HR PATCH T-DERMAL SCH (09:00)
[2018-01-13] MEDS: ATENOLOL 50 MG TAB PO SCH ×2 (09:00→21:22)
[2018-01-13] MEDS: LITHIUM CARBONATE 300 MG TAB PO SCH ×2 (09:02→21:23)
[2018-01-13] MEDS: ZIPRASIDONE HCL 80 MG CAP PO SCH ×2 (09:02→21:23)
[2018-01-13] MEDS: ASPIRIN EC 81 MG TABEC PO SCH (09:02)
--- NOTE | 2018-01-13 12:05 | HHI.PYPN ---
Subjective Remarks Patient seen in [place] with nurse Canas, chart reviewed, patient compliant medications, patient discussed with nurse. Patient somewhat calmer today. He denies suicidality "at this time" it appears this may be related to the fact that he is homeless and he is quite frightening of that prospect. It appears he might be willing to go to when [facility] but then he is concerned about his finances. He states he owns A lack that he owes more money on it than it is worth. For now continue treatment need further discuss placement issues and perhaps repetition to some type of financial advice Review of Systems Except as stated in HPI: all other systems reviewed are Neg Mental Status Examination Appearance: Dirty, Disheveled Consciousness: Alert Orientation: Person, Place, Date/Time Motor Activity: Abnormal gait (patient states he has sciatica) Speech: Pressured, Rapid Language: Adequate Fund of Knowledge: Adequate Attention and Concentration: Easily Distracted Memory: Impaired Mood: Sad, Anxious (About his car, lack of funds, and living arrangements) Affect: Sad, Anxious Thought Process & Associations: Linear Thought Content: Appropriate Hallucination Type: None Delusion Type: Paranoid Suicidal Ideation: Yes (Endorses in the context of his overall situation. No plan.) Suicidal Plan: No Suicidal Intention: No Homicidal Ideation: No Homicidal Plan: No Homicidal Intention: No Insight: Fair Judgment: Impulsive Results Vitals/IOs Vital Signs Date Time Temp Pulse Resp B/P (MAP) Pulse Ox O2 Delivery O2 Flow Rate FiO2 01/13/18 06:03 97.3 58 16 146/76 (99) 94 Assessment & Plan Problem List: (1) Schizoaffective disorder ICD Codes: F25.9 - Schizoaffective disorder, unspecified Status: Acute Assessment & Plan Estimated LOS: days patient somewhat calmer today does deny voices somewhat vague about suicidality, though it is also contingent upon his homelessness Justification for Cont. Inpt. At this time patient would decompensated placement lower level of care Discharge Planning To be determined Request HC Surrog/Guard Advoc?: Yes Problem Qualifiers (1) Schizoaffective disorder: Qualified Codes: F25.0 - Schizoaffective disorder, bipolar type Jeff Tyson MD Jan 13, 2018 12:05
[2018-01-13 18:09] VITALS: BP 107/65; PULSE 59; RESP 17; TEMP 98.7
[2018-01-13] MEDS: REMOVE OLD NICOTINE PATCH T-DERMAL SCH (21:00)
[2018-01-13] MEDS: traZODone HCL 50 MG TAB PO SCH (21:23)
[2018-01-14 06:09] VITALS: BP 98/59; PULSE 55; RESP 16; TEMP 97.2
[2018-01-14] MEDS: LITHIUM CARBONATE 300 MG TAB PO SCH ×2 (08:14→21:13)
[2018-01-14] MEDS: ASPIRIN EC 81 MG TABEC PO SCH (08:14)
[2018-01-14] MEDS: ZIPRASIDONE HCL 80 MG CAP PO SCH ×2 (08:14→21:13)
[2018-01-14] MEDS: ATENOLOL 50 MG TAB PO SCH ×2 (09:00→21:13)
[2018-01-14] MEDS: NICOTINE 21 MG/24 HR PATCH T-DERMAL SCH (09:00)
--- NOTE | 2018-01-14 15:08 | HHI.PYPN ---
Subjective Remarks Patient is seen today in his room with her stay him, chart reviewed, patient complaint medications, patient discussed with others. Patient continues somewhat calmer more appropriate. The other social anxiety and some fear and apprehension related to placement issues. He continues to be willing to go to an [facility] once on his phone for him. He denies voices or visions at the present time does deny suicidality at this time Review of Systems Except as stated in HPI: all other systems reviewed are Neg Mental Status Examination Appearance: Dirty, Disheveled Consciousness: Alert Orientation: Person, Place, Date/Time Motor Activity: Abnormal gait (patient states he has sciatica) Speech: Pressured, Rapid Language: Adequate Fund of Knowledge: Adequate Attention and Concentration: Easily Distracted Memory: Impaired Mood: Sad, Anxious (About his car, lack of funds, and living arrangements) Affect: Sad, Anxious Thought Process & Associations: Linear Thought Content: Appropriate Hallucination Type: None Delusion Type: Paranoid Suicidal Ideation: Yes (Endorses in the context of his overall situation. No plan.) Suicidal Plan: No Suicidal Intention: No Homicidal Ideation: No Homicidal Plan: No Homicidal Intention: No Insight: Fair Judgment: Impulsive Results Vitals/IOs Vital Signs Date Time Temp Pulse Resp B/P (MAP) Pulse Ox O2 Delivery O2 Flow Rate FiO2 01/14/18 06:09 97.2 55 16 98/59 (72) 01/13/18 06:03 94 Assessment & Plan Problem List: (1) Schizoaffective disorder ICD Codes: F25.9 - Schizoaffective disorder, unspecified Status: Acute Assessment & Plan Estimated LOS: days patient was somewhat calmer though remains anxious with some trepidation related to placement issues and finding an appropriate [facility] Justification for Cont. Inpt. At this time patient would decompensate and placed on a lower level of care Discharge Planning To be determined Request HC Surrog/Guard Advoc?: Yes Problem Qualifiers (1) Schizoaffective disorder: Qualified Codes: F25.0 - Schizoaffective disorder, bipolar type Jeff Tyson MD Jan 14, 2018 15:08
[2018-01-14 18:17] VITALS: BP 112/61; PULSE 64; RESP 18; TEMP 98.5; O2SAT 99
[2018-01-14] MEDS: REMOVE OLD NICOTINE PATCH T-DERMAL SCH (21:00)
[2018-01-14] MEDS: traZODone HCL 50 MG TAB PO SCH (21:13)
[2018-01-14] MEDS: diphenhydrAMINE HCL 50 MG CAP PO PRN (21:16)
[2018-01-15 06:26] VITALS: BP 125/78; PULSE 75; RESP 16; TEMP 97.4; O2SAT 97
[2018-01-15] MEDS: NICOTINE 21 MG/24 HR PATCH T-DERMAL SCH (09:00)
[2018-01-15] MEDS: ATENOLOL 50 MG TAB PO SCH ×2 (09:00→20:26)
[2018-01-15] MEDS: ZIPRASIDONE HCL 80 MG CAP PO SCH ×2 (09:00→20:26)
[2018-01-15] MEDS: LITHIUM CARBONATE 300 MG TAB PO SCH ×2 (09:00→20:26)
[2018-01-15] MEDS: ASPIRIN EC 81 MG TABEC PO SCH (09:00)
--- NOTE | 2018-01-15 14:07 | HHI.PYPN ---
Subjective Remarks Patient was seen and case discussed with nursing. Patient had a panic attack this morning where his hands were tremulous and she was concerned about his medications for nursing. He received Ativan which helped. During my interview he is somnolent secondary to the Ativan. He describes his mood today is all right. Denies auditory hallucinations today. Minimally engaged Mental Status Examination Appearance: Dirty, Disheveled Consciousness: Somnolent Orientation: Person, Place, Date/Time Motor Activity: Abnormal gait (patient states he has sciatica) Speech: Pressured, Rapid Language: Adequate Fund of Knowledge: Adequate Attention and Concentration: Easily Distracted Memory: Impaired Mood: Sad, Anxious (About his car, lack of funds, and living arrangements) Affect: Blunt Thought Process & Associations: Linear Thought Content: Appropriate Hallucination Type: None Delusion Type: Paranoid Suicidal Ideation: No Suicidal Plan: No Suicidal Intention: No Homicidal Ideation: No Homicidal Plan: No Homicidal Intention: No Insight: Fair Judgment: Impulsive Results Vitals/IOs Vital Signs Date Time Temp Pulse Resp B/P (MAP) Pulse Ox O2 Delivery O2 Flow Rate FiO2 01/15/18 06:26 97.4 75 16 125/78 (94) 97 Assessment & Plan Problem List: (1) Schizoaffective disorder ICD Codes: F25.9 - Schizoaffective disorder, unspecified Status: Acute Assessment & Plan Continue current treatment plan Justification for Cont. Inpt. Patient would decompensate in a less restrictive setting Request HC Surrog/Guard Advoc?: Yes Problem Qualifiers (1) Schizoaffective disorder: Qualified Codes: F25.0 - Schizoaffective disorder, bipolar type Shai Coreas DO Jan 15, 2018 14:06
[2018-01-15 18:00] VITALS: BP 102/57; PULSE 56; RESP 16; TEMP 97.6; O2SAT 97
[2018-01-15] MEDS: traZODone HCL 50 MG TAB PO SCH (20:26)
[2018-01-15] MEDS: REMOVE OLD NICOTINE PATCH T-DERMAL SCH (20:26)
[2018-01-15] MEDS: ACETAMINOPHEN 325 MG TAB PO PRN (23:22)
[2018-01-16 06:22] VITALS: BP 115/60; PULSE 53; RESP 16; TEMP 97.1; O2SAT 96
[2018-01-16] MEDS: NICOTINE 21 MG/24 HR PATCH T-DERMAL SCH (09:00)
[2018-01-16] MEDS: ASPIRIN EC 81 MG TABEC PO SCH (09:15)
[2018-01-16] MEDS: ZIPRASIDONE HCL 80 MG CAP PO SCH ×2 (09:15→20:30)
[2018-01-16] MEDS: ATENOLOL 50 MG TAB PO SCH ×2 (09:15→20:30)
[2018-01-16] MEDS: LITHIUM CARBONATE 300 MG TAB PO SCH ×2 (09:16→20:30)
--- NOTE | 2018-01-16 14:13 | HHI.PYPN ---
Subjective Remarks Patient was seen and case discussed with nursing. Patient is empathetic and minimally engaged during the interview. His interviewed in bed today. When asked about his mood he said "all of the above, down and anxious sad, whatever. " He denies suicidal or homicidal ideation. Spending a lot of time in his room. Yelling at his mother on the phone per nursing. Compliant with medications Mental Status Examination Appearance: Dirty, Disheveled Consciousness: Somnolent Orientation: Person, Place, Date/Time Motor Activity: Abnormal gait (patient states he has sciatica) Speech: Pressured, Rapid Language: Adequate Fund of Knowledge: Adequate Attention and Concentration: Easily Distracted Memory: Impaired Mood: Sad, Anxious (About his car, lack of funds, and living arrangements) Affect: Irritable Thought Process & Associations: Linear Thought Content: Appropriate Hallucination Type: None Delusion Type: Paranoid Suicidal Ideation: No Suicidal Plan: No Suicidal Intention: No Homicidal Ideation: No Homicidal Plan: No Homicidal Intention: No Insight: Fair Judgment: Impulsive Results Vitals/IOs Vital Signs Date Time Temp Pulse Resp B/P (MAP) Pulse Ox O2 Delivery O2 Flow Rate FiO2 01/16/18 06:22 97.1 53 16 115/60 (78) 96 Assessment & Plan Problem List: (1) Schizoaffective disorder ICD Codes: F25.9 - Schizoaffective disorder, unspecified Status: Acute Assessment & Plan Continue current treatment plan Justification for Cont. Inpt. Patient would decompensate in a less restrictive setting Request HC Surrog/Guard Advoc?: Yes Problem Qualifiers (1) Schizoaffective disorder: Qualified Codes: F25.0 - Schizoaffective disorder, bipolar type Shai Coreas DO Jan 16, 2018 14:13
[2018-01-16 15:45] VITALS: BP 123/79; PULSE 63; RESP 18; TEMP 98.1; O2SAT 98
[2018-01-16] MEDS: diphenhydrAMINE HCL 50 MG CAP PO PRN (20:30)
[2018-01-16] MEDS: REMOVE OLD NICOTINE PATCH T-DERMAL SCH (20:30)
[2018-01-16] MEDS: traZODone HCL 50 MG TAB PO SCH (20:30)
[2018-01-17 05:55] VITALS: BP 136/70; PULSE 50; RESP 18; TEMP 97.7; O2SAT 92
[2018-01-17] MEDS: NICOTINE 21 MG/24 HR PATCH T-DERMAL SCH (09:00)
[2018-01-17] MEDS: ASPIRIN EC 81 MG TABEC PO SCH (09:00)
[2018-01-17] MEDS: LITHIUM CARBONATE 300 MG TAB PO SCH (09:03)
[2018-01-17] MEDS: ZIPRASIDONE HCL 80 MG CAP PO SCH (09:03)
[2018-01-17] MEDS: ATENOLOL 50 MG TAB PO SCH (09:03)
[2018-01-17] MEDS ORDERED: ATEN50TA PO (12:47)
[2018-01-17] MEDS ORDERED: GEOD80CA PO (12:47)
[2018-01-17] MEDS ORDERED: LITH300T3 PO (12:47)
[2018-01-17] MEDS ORDERED: ASPI1TAB56 PO (12:47)
[2018-01-17] MEDS ORDERED: TRAZ50TA12 PO (12:47)
--- NOTE | 2018-01-17 12:55 | HHI.DS ---
Psychiatry Discharge Summary Inpatient Psychiatric care?: Yes Advance Directive: No Reason Not Provided: Due to Patient Condition Mental Health AdvanceDirective: No Health Care Proxy: No Admission Admission Date Jan 06, 2018 at 16:02 Admission Diagnosis: (1) Schizoaffective disorder ICD Code: F25.9 - Schizoaffective disorder, unspecified Brief History Patient is a 57-year-old white male well known to us from prior contacts comes here under [place] act by the [place] [employer] dated 01/05/18 at 8: 34 PM that segment reviewed it is essentially stating that there were multiple callers that advised . she was traveling southbound in the northbound legs of [facility] he was shaking very badly the advisedly wanted to go to [place] and needed directions because he was going the wrong way he stated he lived at the address sinus license however that had a [place] address she is single advised he is bipolar and schizophrenic and takes medication nightly advised multiple times he wanted to go to [place] but Saying his license address [place] is where he lives patient seen screened in the ED urine toxicology positive for benzodiazepines. 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 He also has some occasional fine tremors in both hands is perseverative and repetitive with his statements he screamed out that he suicidal he does deny voices but he appears to be responding significantly to internal stimuli. He states his compliant with his medication but is unable to identify his clinician or the clinician works. He denies alcohol or drug use with this. At this time patient does meet criteria for inpatient psychiatric hospitalization under the [place] act I'll do first opinion request second opinion I also feel he has no capacity I'll ask for healthcare surrogate and guardian advocate. We will restart him on his medications the med reconciliation lithium level drawn on admission at 2355 yesterday is 0.8. 01/08/18 -second opinion Patient is a 57-year-old man who carries a diagnosis of schizophrenia , previous psychiatric admissions, who was brought under [place] act due to concerns of patient driving erratically on the highway and noted be disorganized and confused which patient was admitted to the patient psychiatry for further evaluation and management. Patient was found lying hospital bed B, cooperative but irritable and refusing to continue interview toward the end. Patient states that he is feeling "like sh*t", stating that he was brought in by police after driving down the highway he stated he was getting lost and was swerving on the road as he mentions was trying to reach his GPS. Patient states he is confused all the time, reports being followed up with Dr. Harris outpatient psychiatrist. Patient states previous diagnosis of bipolar disorder and schizophrenia, denies any auditory hallucinations but states having had them in the past last time being "I do not know". Patient continues to endorse suicide ideations, when asked thoughts of hurting himself patient reports "l'd love to". Tobacco Use In Past 30 Days: No Tobacco Past 30 Days Alcohol Use: Never Hospital Course Patient's hospital course was uneventful his initial paranoia and agitation isolation and lability slowly softened with his developing confidence with the milieu and the unit, compliance with his medications. He is showing no behavioral issues, he now denies suicidality or homicidality voice or visions. He feels safe and happy that he is being discharged to an appropriate facility where his needs may be met. Thus patient will be discharged today with Rx times a month for follow-up mental health services to restore [place] act Results Blood Pressure 136 / 70 Vital Signs Date Time Temp Pulse Resp B/P (MAP) Pulse Ox O2 Delivery O2 Flow Rate FiO2 01/17/18 05:55 97.7 50 18 136/70 (92) 92 Laboratory Results Test 01/05/18 23:55 01/07/18 09:30 [place] Level 0.8 MEQ/L (0.5-1.5) Cholesterol Level 190 MG/DL (120-200) HDL Cholesterol 40.8 MG/DL (40.0-60.0) Hemoglobin A1c 4.4 % (4.3-6.0) LDL Cholesterol 114 MG/DL (0-99) Triglycerides Level 177 MG/DL (42-150) Summary of Procedures None done Pending results at discharge: No Medications # of Antipsychotic meds at D/C: 1 Approp Antipsych med options 1 - Minimum of three failed multiple trials of monotherapy. 2 - Documented plan to taper to monotherapy due to previous use of multiple meds OR cross-taper in progress at D/C. 3 - Documentation of augmentation of Clozapine. 4 - Justification other than those listed in allowable values 1-3, document here : Discharge Discharge Date: Jan 17, 2018 Discharge Diagnosis: (1) Schizoaffective disorder Diagnosis: Principal ICD Code: F25.9 - Schizoaffective disorder, unspecified Status: Acute Pt Condition on Discharge: Stable Discharge Disposition: Discharge Home Discharge Instructions Diet Instructions: As Tolerated, No Restrictions Activities you can perform: Regular-No Restrictions Scheduled Appointment: Steven Montoya Appointment Date: Jan 18, 2018 Appointment Time: 8a-3p Discharge Time > 30 minutes Mental Status Examination Appearance: Dirty, Disheveled Consciousness: Somnolent Orientation: Person, Place, Date/Time Motor Activity: Abnormal gait (patient states he has sciatica) Speech: Pressured, Rapid Language: Adequate Fund of Knowledge: Adequate Attention and Concentration: Easily Distracted Memory: Impaired Mood: Sad, Anxious (About his car, lack of funds, and living arrangements) Affect: Irritable Thought Process & Associations: Linear Thought Content: Appropriate Hallucination Type: None Delusion Type: Paranoid Suicidal Ideation: No Suicidal Plan: No Suicidal Intention: No Homicidal Ideation: No Homicidal Plan: No Homicidal Intention: No Insight: Fair Judgment: Impulsive Discharge/Advance Care Plan Health Problems: (1) Schizoaffective disorder Goals to promote your health * To prevent worsening of your condition and complications * To maintain your health at the optimal level Directions to meet your goals Take your medications as prescribed Follow your dietary instruction Follow activity as directed Keep your appointments as scheduled Take your immunizations and boosters as scheduled If your symptoms worsen call your PCP, if no PCP go to Urgent Care Center or Emergency Room For 26/04 questions related to your inpatient stay or results of tests pending at discharge, please contact Dr. Jeff Tyson at Smoking is Dangerous to Your Health. Avoid second hand smoking Problem Qualifiers (1) Schizoaffective disorder: Qualified Codes: F25.0 - Schizoaffective disorder, bipolar type Jeff Tyson MD Jan 17, 2018 12:55
== END 2018-01-17 15:30 | disposition home or self-care (01) | DRG 885 ==
LOC: NEPD 21:45 → NEDA 01-06 16:02 → H270 01-06 16:29
PROVIDERS: ADMIT Psychiatry & Neurology Psychiatry; ATTEND Psychiatry & Neurology Psychiatry
DX: F25.9 Schizoaffective disorder, unspecified (principal); N17.9 Acute kidney failure, unspecified; I10 Essential (primary) hypertension; I25.10 Atherosclerotic heart disease of native coronary artery without angina pectoris; E87.6 Hypokalemia; Z59.0 Homelessness
CPT/HCPCS: 80048; 80061; 80178; 80307; 83036; 83735; 84443; 85025; 96361; 96372; 96374; 96375; J1200; J2060; J3486; J7030; Q0163